=== PATIENT | female | born 1940 | race Caucasian/White ===

== ENCOUNTER → 2017-07-29 | Outpatient (CLI) | payer MEDICARE, SELFPAY | PROVIDERS: Visit Provider Family Medicine | DX: R05 Cough (principal); I50.22 Chronic systolic (congestive) heart failure; J44.9 Chronic obstructive pulmonary disease, unspecified | CPT/HCPCS: 36415; 71020; 80048; 80053; 83880; 85025 ==

== ENCOUNTER → 2017-08-01 | Outpatient (CLI) | payer MEDICARE, SELFPAY | PROVIDERS: Visit Provider Orthopaedic Surgery | DX: M54.6 Pain in thoracic spine (principal); Z13.820 Encounter for screening for osteoporosis; Z78.0 Asymptomatic menopausal state | CPT/HCPCS: 77080 ==

== ENCOUNTER → 2017-08-12 10:42 | Outpatient (CLI) | payer MEDICARE, SELFPAY ==
--- NOTE | 2017-08-12 | XR_ITS ---
XR ribs RT min 3V w CXR1V HISTORY: Midthoracic pain, abnormal bone scan ORDERING PHYSICIAN: Boo Pichardo PATIENT AGE: 77 years COMPARISON: 01/19/2016 FINDINGS: A frontal view of the chest shows prior median sternotomy with multiple kyphoplasty.. Multiple views of the right ribs were obtained. Minimally displaced fracture involves the posterior medial aspect of the right fourth and fifth ribs. These fractures appear more acute and were not present on previous exam. Old fracture of the right fifth rib laterally. There are old left-sided rib fractures as well. Bone scan did show increased activity involving the right 11th and 12th ribs as well as the night eighth and seventh ribs laterally. This may represent fractures which are below the limits of resolution on plain films. No bony destructive process evident. IMPRESSION: 1. Acute nondisplaced fractures of the right fourth and fifth ribs. 2. Multiple areas of rib activity noted on the bone scan likely related to nondisplaced rib fractures below limits of resolution on the plain film. No bony destructive process evident.
--- NOTE | 2017-08-12 | XR_ITS ---
EXAM: XR thoracic spine 2V HISTORY: Back pain, abnormal bone scan, midthoracic back pain COMPARISON: None FINDINGS: There is been prior kyphoplasty at L3, L1, T11, and T10. Wedge compression changes involve T5, T6, T7, and T8. These are not significant changed compared to lateral chest radiograph of 07/29/2017. Some of these areas do correspond to abnormal increased activity on the bone scan at T6 and T8. The T6 activity on the bone scan is more intense than on older bone scan. There has been increase wedge compression changes at T6 compared to an older lateral chest radiograph of 01/13/2016. There is generalized osteopenia IMPRESSION: Multiple wedge compression changes from T5 through T8 with prior kyphoplasty at T10, T11, L1, and L3. No bony destructive process evident
--- NOTE | 2017-08-12 10:52 | NM_ITS ---
NM bone scan limited area CLINICAL INDICATION: ITS.REASON: THOPRACIC SPINE PAIN ORDERING PHYSICIAN: Boo Pichardo PATIENT AGE: 77 years DOSE: 25.6 mCi technetium MDP IV COMPARISON: Radiographs of the thoracic spine and right ribs, prior bone scan of 01/19/2016 FINDINGS: Focal increased activity is present within the thoracic spine at T8 and T6. The T6 activity is more intense when compared to the previous bones can. The T8 activity is less intense when compared to the previous bone scan. Mild endplate activity is present in the lumbar spine. Focal increased activity is also present involving the right aspect of the ribs medially at the right fourth, fifth, sixth, seventh, and eighth ribs as well as posterior lateral aspect of the right seventh, eighth, and ninth ribs. These areas of activity are well to one another medially and posterior laterally and consistent with rib fractures. Multiple wedge compression changes are present on the thoracic spine film of T5-T8 IMPRESSION: Abnormal bone scan with increased activity in the thoracic spine and right ribs consistent with posttraumatic changes/compression fractures and nondisplaced rib fractures
--- NOTE | 2017-08-12 13:31 | HMH.ITSHM ---
ASPIRIN GLENDRANAZE VITAMIN D3 LISINOPRIL LEVOTHYROXINE SIMVASTATIN CARVEDILOL CLOPIDGREL RANITIDINE ENTRESTO
--- NOTE | 2017-08-12 14:26 | HMH.ITSHM ---
ASPIRIN, GLENDRANAZE, VIT D3, LISINOPRIL, LEVOTHYROXINE, SIMVASTATIN, CARVEDILOL, RANITIDINE
== END ==
PROVIDERS: PCP Family Medicine; Visit Provider Orthopaedic Surgery
DX: M54.6 Pain in thoracic spine (principal)
CPT/HCPCS: 71101; 72070; 78300; A9503

== ENCOUNTER 2017-12-31 13:35 | Outpatient (CLI) | payer MEDICARE, SELFPAY ==
[2017-12-31 14:00] VITALS: BP 129/80; PULSE 80; RESP 22; TEMP 36.3; O2SAT 97
== END 2017-12-31 14:20 | disposition home or self-care (01) ==
PROVIDERS: PCP Family Medicine; Visit Provider Family Medicine
DX: M85.89 Other specified disorders of bone density and structure, multiple sites
CPT/HCPCS: 96372; J0897

== ENCOUNTER 2018-01-04 08:24 | Observation (INO) ==
[2018-01-04 08:42] LABS: Basophils # 0.1 K/mm3 (0-0.2); Basophils % 1.3 % (0.1-2.0); Eosinophils # 0.1 K/mm3 (0.0-0.4); Eosinophils % 2.5 % (0.1-12.0); Hematocrit 41.5 % (37.0-47.0); Hemoglobin 12.3 g/dL (12.2-16.2); Lymphocytes # 1.8 K/mm3 (0.7-4.5); Mean Corpuscular HGB Conc 29.7 g/dL (31.8-35.4); Mean Corpuscular Volume 97.7 fl (81-99); Mean Platelet Volume 8.8 fl (7.4-10.4); Monocytes # 0.3 K/mm3 (0.1-1.0); Monocytes % 5.7 % (1.7-9.3); Neutrophils # 2.5 K/mm3 (1.8-7.8); Neutrophils % 52.4 % (37.0-80.0); Platelet Count 241 K/mm3 (142-424); Red Blood Count 4.25 M/mm3 (4.20-5.40); Red Cell Distribution Width 13.8 % (11.5-17.5); White Blood Count 4.8 K/mm3 (4.8-10.8)
[2018-01-04 08:48] LABS: Chloride 105 mmol/L (98-107); Sodium 146 mmol/L (136-145)
[2018-01-04 08:49] LABS: Anion Gap 9.8 mEq/L (5-15); Blood Urea Nitrogen 16 mg/dL (7-18); Carbon Dioxide 31 mmol/L (21.0-32.0); Glucose 113 mg/dL (74-106)
--- NOTE | 2018-01-04 08:51 | Emergency Department Note ---
ED Disposition Clinical Impression: Acute exacerbation of chronic obstructive airways disease Disposition: Admitted as Observation Condition on Discharge: Good - Critical Care Critical Care Time: No Attestation: On 01/04/18, the high probability of a clinically significant, sudden or life threatening deterioration of the following system(s) required my full and direct attention, intervention and personal management. The time I documented below is in addition to time spent performing reported procedures but includes the following listed in this critical care notation. Medical Decision Making - Medical Records Medical records reviewed: Yes: I reviewed the patient's medical records. MR Comment: abg 7.38 42.7 - Gabriel Inquiry Pt receiving controlled substance: No Vital Signs: 01/04/18 08:46 01/04/18 09:12 01/04/18 10:23 Temperature 97.8 F Temperature Source Temporal Artery Scan Pulse Rate 105 H 75 Pulse Rate [Right Brachial] 90 Respiratory Rate 16 Blood Pressure [Right Arm] 128/70 Blood Pressure Mean [Right Arm] 89 Blood Pressure Source [Right Arm] Automatic Cuff Blood Pressure Position [Right Arm] Sitting 02 Sat by Pulse Oximetry 93 L Oxygen Delivery Method Room Air 01/04/18 10:54 Temperature Temperature Source Pulse Rate Pulse Rate [Right Brachial] 89 Respiratory Rate 30 H Blood Pressure [Right Arm] 129/78 Blood Pressure Mean [Right Arm] 95 Blood Pressure Source [Right Arm] Automatic Cuff Blood Pressure Position [Right Arm] Sitting 02 Sat by Pulse Oximetry Oxygen Delivery Method - Lab Data Lab Results 01/04/18 08:32: WBC 4.8, RBC 4.25, Hgb 12.3, Hct 41.5, MCV 97.7, MCH 29.0, MCHC 29.7 L, RDW 13.8, Plt Count 241, MPV 8.8, Neut % (Auto) 52.4, Lymph % (Auto) 38.0, [place] % (Auto) 5.7, Eos % (Auto) 2.5, Baso % (Auto) 1.3, Neut # (Auto) 2.5 , Lymph # (Auto) 1.8, [place] # (Auto) 0.3, Eos # (Auto) 0.1, Baso # (Auto) 0.1 01/04/18 08:32: Sodium 146 H, Potassium 3.0 L, Chloride 105, Carbon Dioxide 31, Anion Gap 9.8, BUN 16, Creatinine 0.74, Estimated Creat Clear 36, Estimated GFR 76, Est GFR ( Amer) 92, Glucose 113 H, Troponin I < 0.02, TSH 0.79 01/04/18 08:32: Lactic Acid 1.5 01/04/18 08:32: B-Natriuretic Peptide 117 H Result diagrams: 01/04/18 08:32 01/04/18 08:32 Orders (Tests/Meds): ED MEDICATIONS Generic Name Dose Route Start Last Admin Trade Name Freq PRN Reason Stop Dose Admin Acetaminophen 650 mg 01/04/18 11:34 Acetaminophen 325mg Tab PO 02/03/18 11:33 Q4HP PRN As Needed for Fever or Pain Albuterol/Ipratropium 3 ml 01/04/18 11:34 Duoneb 3ml Neb IH 02/03/18 11:33 Q6HP PRN Shortness Of Breath Aspirin 81 mg 01/05/18 09:00 Aspirin 81mg Enteric Coated Tablet PO 02/04/18 08:59 DAILY [facility] Clopidogrel Bisulfate 75 mg 01/05/18 09:00 Plavix 75mg Tablet PO 02/04/18 08:59 DAILY [facility] Azithromycin 500 mg/ Sodium 250 mls @ 250 mls/hr 01/05/18 11:30 Chloride IV 01/18/18 11:29 Q24H [facility] Protocol Levothyroxine Sodium 75 mcg 01/05/18 09:00 Synthroid 75mcg (0.075mg) Tablet PO 02/04/18 08:59 DAILY [facility] Methylprednisolone Sodium Succinate 40 mg 01/04/18 11:34 Methylprednisolone Sod Succinate 40mg Vial IV 02/03/18 11:33 Q8H [facility] Non-Formulary Medication 2 puff 01/04/18 21:00 Budesonide/Formoterol Fumarate [Symbicort 160-4.5 Mcg Inhaler] INHALATION 20:59 BID [facility] Non-Formulary Medication 5,000 unit 01/05/18 09:00 Cholecalciferol (Vitamin D3) [Vitamin D3] PO 02/04/18 08:59 DAILY [facility] Non-Formulary Medication 20 mg 01/05/18 09:00 Escitalopram Oxalate [Escitalopram Oxalate] PO 02/04/18 08:59 DAILY [facility] Non-Formulary Medication 1 tab 01/04/18 21:00 Sacubitril/Valsartan [Entresto 49 Mg-51 Mg Tablet] PO 02/03/18 20:59 BID [facility] Non-Formulary Medication 40 mg 01/04/18 11:34 Simvastatin [Simvastatin] PO 02/03/18 11:33 QPM [facility] Non-Formulary Medication 70 mg 01/04/18 11:34 Alendronate Sodium [Fosamax] PO 02/03/18 11:33 QWEEK [facility] Non-Formulary Medication 150 mg 01/04/18 11:34 Ranitidine Hcl [Ranitidine Hcl] PO 02/03/18 11:33 QHS [facility] Discontinued Medications Generic Name Dose Route Start Last Admin Trade Name Freq PRN Reason Stop Dose Admin Albuterol Sulfate 5 mg 01/04/18 08:50 01/04/18 09:20 Albuterol 0.083% 2.5mg/3ml [facility] 01/04/18 08:51 5 mg ONCE ONE Administration Albuterol/Ipratropium 3 ml 01/04/18 08:49 01/04/18 09:09 Duoneb 3ml [facility] 01/04/18 08:50 3 ml ONCE ONE Administration Albuterol/Ipratropium 3 ml 01/04/18 10:09 01/04/18 10:23 Duoneb 3ml [facility] 01/04/18 10:10 3 ml ONCE ONE Administration Azithromycin 500 mg/ Sodium 250 mls @ 250 mls/hr 01/04/18 11:30 01/04/18 11: 31 Chloride IV 01/18/18 11:29 250 mls/hr Q24H [facility] Administration Protocol Methylprednisolone Sodium Succinate 125 mg 01/04/18 08:50 01/04/18 09:21 Solu-Medrol 125mg/2ml Vial IV 01/04/18 08:51 125 mg ONCE ONE Administration Ondansetron HCl 4 mg 01/04/18 10:37 01/04/18 11:08 Zofran 4mg/2ml Vial IV 01/04/18 10:38 4 mg ONCE ONE Administration Potassium Chloride 40 meq 01/04/18 09:37 01/04/18 09:51 Klor-Con 20meq Tablet PO 01/04/18 09:38 40 meq ONCE ONE Administration ORDERS Category Date Time Status Complete Blood Count Auto Diff AMLAB Lab 01/05/18 06:00 Ordered Comprehensive Metabolic Panel AMLAB Lab 01/05/18 06:00 Ordered Troponin I Q6H Lab 01/04/18 11:34 Ordered Troponin I Q6H Lab 01/04/18 17:34 Ordered Troponin I Q6H Lab 01/04/18 23:34 Ordered Blood Culture Stat Micro 01/04/18 08:32 Received - ECG Data Tracing #1 I reviewed this ECG and interpreted as documented below: (ER EKG read by myself shows normal sinus rhythm rate of 94, lbbb, l axis, no QT prolongation, nonspecific EKG, no change from 11/04/16 ekg) General Adult HPI - General Chief complaint: Shortness of Breath/Dyspnea Stated complaint: soa Time Seen by Provider: 01/04/18 08:46 - History of Present Illness HPI narrative: Patient complains of chest tightness and shortness of breath and cough productive of yellow phlegm over the past couple days and dyspnea on exertion she states her chest tightness is moderate in severity she denies any fevers or chills she states he does feel cold at times. Denies any pain she states she has a history of COPD. Denies any leg pain leg swelling. - Related Data Home Medications Medication Instructions Recorded Confirmed alendronate 70 mg tablet 70 mg PO QWEEK 12/24/17 01/04/18 aspirin 81 mg tablet,delayed 81 mg PO DAILY tab 12/24/17 01/04/18 release budesonide-formoterol HFA 160 2 puff INHALATION BID 12/24/17 01/04/18 mcg-4.5 mcg/actuation aerosol inhaler cholecalciferol (vitamin D3) 5,000 5,000 unit PO DAILY cap 12/24/17 01/04/18 unit capsule clopidogrel 75 mg tablet 75 mg PO DAILY tab 12/24/17 01/04/18 escitalopram 20 mg tablet 20 mg PO DAILY tab 12/24/17 01/04/18 levothyroxine 75 mcg tablet 75 mcg PO DAILY tab 12/24/17 01/04/18 omeprazole 40 mg capsule,delayed 40 mg PO DAILY cap 12/24/17 01/04/18 release ranitidine 150 mg tablet 150 mg PO QHS 12/24/17 01/04/18 sacubitril 49 mg-valsartan 51 mg 1 tab PO BID 12/24/17 01/04/18 tablet simvastatin 40 mg tablet 40 mg PO QPM 12/24/17 01/04/18 Allergies Allergy/AdvReac Type Severity Reaction Status Date / Time hydrocodone [HYDROCODONE] Allergy Unknown Verified 01/04/18 08:27 morphine [MORPHINE] Allergy Unknown Verified 01/04/18 08:27 [facility] History I have reviewed the patient's past medical history: Yes Medical History: Reports:: Asthma, Cardiomyopathy, Chronic Obstructive Pulmonary Disease (COPD), Coronary Artery Disease, Gastroesophageal Reflux Disease(GERD), Hyperlipidemia, Hypertension, Kidney Stones Other Medical History: Reports: Arthritis Other Surgeries: Yes: No Previous Surgery - Social History Smoking Status: Former smoker Alcohol Intake: never Substance Use Type: denies use Family Hx:: No significant family history ROS Obtained: Yes All systems reviewed & no additional complaints Physical Exam - General General appearance: alert - Head Head exam: atraumatic - Eye Eye exam: Present: normal appearance - ENT ENT exam: Present: mucous membranes moist - Neck Neck exam: Present: normal inspection - Chest Chest inspection: Present: normal inspection - Respiratory Respiratory exam: Present: wheezes - Cardiovascular Cardiovascular exam: Present: regular rate, normal rhythm - Abdominal Exam Abdominal exam: Present: soft, normal bowel sounds. Absent: tenderness - Extremities Exam Extremities exam: Absent: pedal edema - Back Exam Back exam: Absent: tenderness - Neurological Exam Neurological exam: Present: alert - Psychiatric Psychiatric exam: Present: normal affect - Skin Skin exam: Present: warm
[2018-01-04 09:01] LABS: Thyroid Stimulating Hormone 0.79 uIU/ml (0.358-3.740)
--- NOTE | 2018-01-04 15:07 | Pharmacy Consult Notes ---
[facility] Pharmacy VTE Monitoring - Patient Demographics Admission date: 01/04/18 Report Date: 01/04/18 Time: 15:06 Allergies/Adverse Reactions: Patient Allergies hydrocodone [HYDROCODONE] Allergy (Unknown, Verified 01/04/18 08:27) morphine [MORPHINE] Allergy (Unknown, Verified 01/04/18 08:27) Height: 1.55 m Weight: 44.027 kg Patient Problems: Current Active Problems Acute exacerbation of chronic obstructive airways disease (Acute) - VTE Risk Labs: VTE Related Lab Results Hgb 12.3 g/dL (12.2-16.2) 01/04/18 08:32 Hct 41.5 % (37.0-47.0) 01/04/18 08:32 Plt Count 241 K/mm3 (142-424) 01/04/18 08:32 BUN 16 mg/dL (7-18) 01/04/18 08:32 Creatinine 0.74 mg/dL (0.55-1.02) 01/04/18 08:32 Estimated Creat Clear 36 mL/min (0-300) 01/04/18 08:32 Was VTE Risk Assessment Performed: Yes VTE Score: 3 VTE Risk Level: Low Risk - Prophylaxis Types of VTE Prophylaxis: TEDS Knee High ([facility] ORDRED) Location of Applied Device: Bilateral Lower Extremeties
[2018-01-05 05:08] VITALS: BP 95/42
[2018-01-05 06:05] LABS: Basophils % 0.1 % (0.1-2.0); Eosinophils % 0.1 % (0.1-12.0); Lymphocytes # 0.5 K/mm3 (0.7-4.5); Mean Platelet Volume 7.8 fl (7.4-10.4); Monocytes # 0.2 K/mm3 (0.1-1.0); White Blood Count 6.2 K/mm3 (4.8-10.8)
[2018-01-05 06:16] LABS: Hematocrit 34.1 % (37.0-47.0); Lymphocytes % 7.5 K/mm3 (10-50); Mean Corpuscular HGB Conc 29.8 g/dL (31.8-35.4); Mean Corpuscular Hemoglobin 29.4 pg (27.0-31.2); Mean Corpuscular Volume 98.7 fl (81-99); Monocytes % 3.4 % (1.7-9.3); Neutrophils # 5.6 K/mm3 (1.8-7.8); Platelet Count 260 K/mm3 (142-424); Red Blood Count 3.45 M/mm3 (4.20-5.40); Red Cell Distribution Width 13.9 % (11.5-17.5)
[2018-01-05 06:18] LABS: Albumin Level 3.3 gm/dL (3.4-5.0); Albumin/Globulin Ratio 1.1 (1.1-1.8); Anion Gap 11.2 mEq/L (5-15); Bilirubin,Total 0.2 mg/dL (0.2-1.0); Calcium 8.5 mg/dL (8.5-10.1); Globulin 3.1 gm/dl (1.3-3.2); Potassium 3.2 mmoL/L (3.5-5.1); Total Protein,Serum 6.4 gm/dL (6.4-8.2)
[2018-01-05 06:30] LABS: Hemoglobin 10.2 g/dL (12.2-16.2)
--- NOTE | 2018-01-05 06:56 | H&P/Discharge Summary ---
General - General Admission date:: 01/04/18 Discharge date: 01/05/18 *Admission Date: 01/04/18 *Chief complaint: Shortness of breath *History of present illness: 77-year-old female with history of COPD as well as CHF presented to the emergency department early yesterday morning with complaint of shortness of breath. History is taken from the patient and her granddaughter. Patient reports over the last month she has had more frequent episodes of acute onset of shortness of breath, usually in the evenings. The patient actually refers to her episodes as panic attacks and believes they are related to being alone in the evening and thinking about her . Apparently another family member was living with her up until a month ago and since that time she is having more frequent episodes of panic. Yesterday morning however she contacted her granddaughter because of increased shortness of breath. Granddaughter states she had difficulty talking on the phone. By the time granddaughter arrived at her house the patient could not walk due to her shortness of breath. She was brought to the emergency department. Patient noted significant improvement with a breathing treatment. She was tachypneic on presentation to the ER. Labs revealed hypokalemia and patient's evaluation was consistent with a COPD exacerbation. Patient was admitted for treatment with IV fluids, steroids, antibiotics. This morning she denies shortness of breath and is feeling better. She did not have any "panic attacks" yesterday evening while hospitalized. The patient and her family also agrees some of this seems to be triggered by her recent visit from a nurse associated with the patient's insurance company. Apparently something the nurse said led the patient to believe that she was developing acute congestive heart failure which left the patient uneasy and anxious. [facility] History I have reviewed the patient's past medical history: Yes Medical History: Reports:: Asthma, Cardiomyopathy, Chronic Obstructive Pulmonary Disease (COPD), Coronary Artery Disease, Gastroesophageal Reflux Disease(GERD), Hyperlipidemia, Hypertension, Kidney Stones Denies:: Cancer, Diabetes Mellitus Type 1, Diabetes Mellitus Type 2, MRSA Other Medical History: Reports: Arthritis Other Surgeries: Yes: No Previous Surgery, Skin Cancer Excision Amputation: No Fractures: No - *Social History Educational Level: Attended Grade School Smoking Status: Former smoker Tobacco Type: cigarettes # Packs/Day (cigarettes): 1 Alcohol Intake: never Substance Use Type: denies use Occupational Status: retired Housing: house - Psychiatric History Expresses thoughts of harming self/others: None Suicide Plan Description: No Plan *Family Hx:: No significant family history Review of Systems - Review of Systems Review of systems:: unable to obtain - Constitutional Denies anorexia, Denies body ache(s), Denies chills - *Cardiovascular Denies chest pain, Denies chest pain at rest - *Respiratory Reports shortness of breath, Reports shortness of breath with activity, Denies change in phlegm color, Denies chest congestion, Denies cough, Denies coughing up blood - *Gastrointestinal Reports belching Exam Vital signs and Labs for Last 24 Hours: Temp Pulse Resp BP Pulse Ox 98.1 F 81 20 95/42 93 L 01/05/18 04:00 01/05/18 04:00 01/05/18 04:00 01/05/18 04:00 01/05/18 06:11 Laboratory Results - last 24 hr 01/04/18 08:32: WBC 4.8, RBC 4.25, Hgb 12.3, Hct 41.5, MCV 97.7, MCH 29.0, MCHC 29.7 L, RDW 13.8, Plt Count 241, MPV 8.8, Neut % (Auto) 52.4, Lymph % (Auto) 38.0, [place] % (Auto) 5.7, Eos % (Auto) 2.5, Baso % (Auto) 1.3, Neut # (Auto) 2.5 , Lymph # (Auto) 1.8, [place] # (Auto) 0.3, Eos # (Auto) 0.1, Baso # (Auto) 0.1 01/04/18 08:32: Sodium 146 H, Potassium 3.0 L, Chloride 105, Carbon Dioxide 31, Anion Gap 9.8, BUN 16, Creatinine 0.74, Estimated Creat Clear 36, Estimated GFR 76, Est GFR ( Amer) 92, Glucose 113 H, Troponin I < 0.02, TSH 0.79 01/04/18 08:32: Lactic Acid 1.5 01/04/18 08:32: B-Natriuretic Peptide 117 H 01/04/18 12:27: Troponin I < 0.02 01/04/18 17:20: Troponin I < 0.02 01/04/18 23:45: Troponin I < 0.02 01/05/18 05:10: WBC 6.2 D, RBC 3.45 L, Hgb 10.2 L D, Hct 34.1 L, MCV 98.7, MCH 29.4, MCHC 29.8 L, RDW 13.9, Plt Count 260, MPV 7.8, Neut % (Auto) 89.0 H, Lymph % (Auto) 7.5 L, [place] % (Auto) 3.4, Eos % (Auto) 0.1, Baso % (Auto) 0.1, Neut # (Auto) 5.6, Lymph # (Auto) 0.5 L, [place] # (Auto) 0.2, Eos # (Auto) 0.0, Baso # (Auto) 0.0 01/05/18 05:10: Sodium 144, Potassium 3.2 L, Chloride 107, Carbon Dioxide 29, Anion Gap 11.2, BUN 18, Creatinine 0.80, Estimated Creat Clear 33, Estimated GFR 70, Est GFR ( Amer) 84, Glucose 137 H D, Calcium 8.5, Total Bilirubin 0.2, AST 16, ALT 13, Alkaline Phosphatase 65, Total Protein 6.4, Albumin 3.3 L, Globulin 3.1, Albumin/Globulin Ratio 1.1 I & O for Last 24 hours: Intake & Output 01/02/18 01/03/18 01/04/18 01/05/18 11:59 11:59 11:59 11:59 Intake Total 1050 / 1050 Balance 1050 / 1050 Weight 97 lb 1 oz 97 lb 1 oz Microbiology Reports for the Last 24 Hours: Microbiology 01/04/18 20:45 Sputum - Expectorated Sputum Gram Stain - Final Narrative: Patient is awake and alert resting comfortably in bed this morning without the use of supplemental oxygen. She does not appear in any respiratory distress. Speech is fluent and clear. HEENT exam is significant for a moist oropharynx, pupils are reactive to light, normal external ears. Neck is without jugular venous distention. Lungs are clear to auscultation except for some faint right- sided basilar rales. Heart has a regular rate and rhythm. Abdomen is soft, nontender, nondistended. Patient has active range of motion in all extremities. Neurologic exam does not reveal any deficits. Hospital Course Hospital Course: Patient was admitted and treated for a COPD exacerbation with breathing treatments, IV steroids and IV antibiotics. Overnight the patient improved significantly and was requiring any supplemental oxygen. Patient felt like she had returned to baseline. She will be discharged home and will follow-up in my office later in this week as an outpatient. Home nebulizer will be arranged the patient feels like she benefited significantly from that when she was feeling short of breath. Also discussed with the patient more frequent outpatient visits as a way to potentially ease her mind about her health and she will consider this. Results Labs on day of discharge: Labs from last 24 hours 01/05/18 01/05/18 01/04/18 05:10 05:10 23:45 WBC 6.2 D RBC 3.45 L Hgb 10.2 L D Hct 34.1 L MCV 98.7 MCH 29.4 MCHC 29.8 L RDW 13.9 Plt Count 260 MPV 7.8 Neut % (Auto) 89.0 H Lymph % (Auto) 7.5 L [place] % (Auto) 3.4 Eos % (Auto) 0.1 Baso % (Auto) 0.1 Neut # (Auto) 5.6 Lymph # (Auto) 0.5 L [place] # (Auto) 0.2 Eos # (Auto) 0.0 Baso # (Auto) 0.0 Sodium 144 Potassium 3.2 L Chloride 107 Carbon Dioxide 29 Anion Gap 11.2 BUN 18 Creatinine 0.80 Estimated Creat Clear 33 Estimated GFR 70 Est GFR ( Amer) 84 Glucose 137 H D Lactic Acid Calcium 8.5 Total Bilirubin 0.2 AST 16 ALT 13 Alkaline Phosphatase 65 Troponin I < 0.02 B-Natriuretic Peptide Total Protein 6.4 Albumin 3.3 L Globulin 3.1 Albumin/Globulin Ratio 1.1 TSH 01/04/18 01/04/18 01/04/18 17:20 12:27 08:32 WBC RBC Hgb Hct MCV MCH MCHC RDW Plt Count MPV Neut % (Auto) Lymph % (Auto) [place] % (Auto) Eos % (Auto) Baso % (Auto) Neut # (Auto) Lymph # (Auto) [place] # (Auto) Eos # (Auto) Baso # (Auto) Sodium Potassium Chloride Carbon Dioxide Anion Gap BUN Creatinine Estimated Creat Clear Estimated GFR Est GFR ( Amer) Glucose Lactic Acid Calcium Total Bilirubin AST ALT Alkaline Phosphatase Troponin I < 0.02 < 0.02 B-Natriuretic Peptide 117 H Total Protein Albumin Globulin Albumin/Globulin Ratio TSH 01/04/18 01/04/18 01/04/18 08:32 08:32 08:32 WBC 4.8 RBC 4.25 Hgb 12.3 Hct 41.5 MCV 97.7 MCH 29.0 MCHC 29.7 L RDW 13.8 Plt Count 241 MPV 8.8 Neut % (Auto) 52.4 Lymph % (Auto) 38.0 [place] % (Auto) 5.7 Eos % (Auto) 2.5 Baso % (Auto) 1.3 Neut # (Auto) 2.5 Lymph # (Auto) 1.8 [place] # (Auto) 0.3 Eos # (Auto) 0.1 Baso # (Auto) 0.1 Sodium 146 H Potassium 3.0 L Chloride 105 Carbon Dioxide 31 Anion Gap 9.8 BUN 16 Creatinine 0.74 Estimated Creat Clear 36 Estimated GFR 76 Est GFR ( Amer) 92 Glucose 113 H Lactic Acid 1.5 Calcium Total Bilirubin AST ALT Alkaline Phosphatase Troponin I < 0.02 B-Natriuretic Peptide Total Protein Albumin Globulin Albumin/Globulin Ratio TSH 0.79 DS: Diagnosis - Discharge Diagnosis (1) Acute exacerbation of chronic obstructive airways disease Status: Acute (2) Anxiety about health Status: Acute (3) Gastroesophageal reflux disease Status: Acute Discharge Medications Discharge Medications: Home Medications Medication Instructions Recorded Confirmed Type alendronate 70 mg tablet 70 mg PO QWEEK 12/24/17 01/04/18 History aspirin 81 mg tablet,delayed 81 mg PO DAILY tab 12/24/17 01/04/18 History release budesonide-formoterol HFA 160 2 puff INHALATION BID 12/24/17 01/04/18 History mcg-4.5 mcg/actuation aerosol inhaler cholecalciferol (vitamin D3) 5,000 5,000 unit PO DAILY cap 12/24/17 01/04/18 History unit capsule clopidogrel 75 mg tablet 75 mg PO DAILY tab 12/24/17 01/04/18 History levothyroxine 75 mcg tablet 75 mcg PO DAILY tab 12/24/17 01/04/18 History ranitidine 150 mg tablet 150 mg PO QHS 12/24/17 01/04/18 History simvastatin 40 mg tablet 40 mg PO QPM 12/24/17 01/04/18 History Benzonatate [Benzonatate 100mg 100 mg PO TIDP PRN 01/04/18 01/04/18 History cap] Escitalopram Oxalate [Lexapro] 10 mg PO DAILY 01/04/18 01/04/18 History Sacubitril/Valsartan [Entresto 49 1 each PO DAILY 01/04/18 01/04/18 History mg-51 mg Tablet] buPROPion HCl [Bupropion HCl Sr] 150 mg PO BID 01/04/18 01/04/18 History Disposition Disposition: Home, Self-Care
[2018-01-05 07:22] LABS: ABG Base Excess 0.2 mmol/L (-2.4-2.3); ABG HCO3 25.2 mmhg (22.0-26.0); ABG Oxygen Saturation 93 % (90-100); ABG PCO2 42.7 mmhg (35.0-45.0); ABG PH 7.39 mmol/L (7.35-7.45); ABG PO2 70.4 mmhg (80-100); ABG TCO2 26.5 mmhg (23-27)
[2018-01-05 08:21] LABS: Lymphocytes % 8 % (10-50); Neutrophils % 92 % (42-76); RBC Morphology Normal; Total Cells Counted 100
== END 2018-01-05 07:55 | disposition home or self-care (01) ==
LOC: EDBD → ER 08:24 → 2ND 08:24
PROVIDERS: ADMIT Emergency Medicine; ATTEND Family Medicine

== ENCOUNTER → 2018-01-15 12:07 | Outpatient (CLI) | payer MEDICARE, SELFPAY ==
[2018-01-15 12:34] LABS: Basophils % 0.8 % (0.1-2.0); Eosinophils # 0.1 K/mm3 (0.0-0.4); Eosinophils % 1.6 % (0.1-12.0); Hematocrit 38.2 % (37.0-47.0); Hemoglobin 11.5 g/dL (12.2-16.2); Lymphocytes # 1.5 K/mm3 (0.7-4.5); Lymphocytes % 33.3 K/mm3 (10-50); Mean Corpuscular HGB Conc 30.2 g/dL (31.8-35.4); Mean Corpuscular Hemoglobin 29.3 pg (27.0-31.2); Mean Corpuscular Volume 97.2 fl (81-99); Monocytes # 0.2 K/mm3 (0.1-1.0); Monocytes % 5.2 % (1.7-9.3); Neutrophils # 2.7 K/mm3 (1.8-7.8); Neutrophils % 59.1 % (37.0-80.0); Platelet Count 290 K/mm3 (142-424); Red Blood Count 3.93 M/mm3 (4.20-5.40); Red Cell Distribution Width 13.7 % (11.5-17.5); White Blood Count 4.6 K/mm3 (4.8-10.8)
[2018-01-15 13:46] LABS: Anion Gap 11.3 mEq/L (5-15); Blood Urea Nitrogen 14 mg/dL (7-18); Calcium 8.7 mg/dL (8.5-10.1); Carbon Dioxide 32 mmol/L (21.0-32.0); Chloride 107 mmol/L (98-107); Creatinine,Serum 0.66 mg/dL (0.55-1.02); Estimated Glomerular Filt Rate 87 ml/min (>60); GFR (African American) 105 ML/MIN (>60); Glucose 83 mg/dL (74-106); Potassium 3.3 mmoL/L (3.5-5.1); Sodium 147 mmol/L (136-145)
== END ==
PROVIDERS: Visit Provider Internal Medicine Cardiovascular Disease
DX: R06.02 Shortness of breath (principal); I42.0 Dilated cardiomyopathy; D64.9 Anemia, unspecified; R94.31 Abnormal electrocardiogram [ECG] [EKG]
CPT/HCPCS: 36415; 80048; 83880; 85025

== ENCOUNTER → 2018-01-20 14:13 | Outpatient (CLI) | payer MEDICARE, SELFPAY ==
--- NOTE | 2018-01-20 14:15 | CA_ITS ---
PROCEDURE: 2-D M-mode and color Doppler study INDICATIONS FOR THE TEST: Chest pain COPD+ Heart Murmur Tobacco Smokingex Palpitations Fatigue Syncope Edema Hypertension+Diabetes Mellitus Rheumatic Fever SOB+MAR Obesity Hyperlipidemia+ Family History HD Additional History Pulmonary emphysema, CAD, CM, CABG, GERD, Asthma PATIENT INFORMATION HEIGHT: 60 WEIGHT: 97 GENDER: Female B/P:130/70 2-D/M-MODE INTERPRETATION: 2-D MEASUREMENTS OBSERVED VALUES IN CMS Right Ventricular Dimension (RVDd) 2.7 Interventricular Septum (Thickness)(IVsd) 1.1 Left Ventricular Internal Dimensions(LVIDd) 3.8 Left Ventricular Posterior Wall (Thickness)(LVPWd) 1.2 Aortic Root 2.8 Aortic Cusp Separation 2.0 Left Atrial Dimensions (LAD) 3.8 2D 1. Left atrium is mildly enlarged, left ventricle is normal size, mild concentric left ventricular hypertrophy, visually estimated ejection fraction approximately 35%, there is marked hypokinesis involving the mid to distal septum, anterior and anteroapical wall. 2. The right atrium and right ventricle are mildly enlarged with normal contractility. 3. The aortic valve is thickened and calcified, leaflet continue to display good mobility. 4. The mitral and tricuspid valve leaflets are minimally thickened 5. The pulmonic valve is poorly visualized. 6. No significant pericardial effusion noted. DOPPLER INTERROGATION: Doppler interrogation of the aortic, mitral and tricuspid valvular presence of mild mitral and tricuspid regurgitation, tricuspid regurgitant jet velocity is insufficient for calculation of the right ventricular systolic pressure, grade 1 diastolic dysfunction seen with tissue Doppler evidence of raised left atrial pressure. CONCLUSION: 1. Mildly enlarged left atrium, normal left ventricular size, mild concentric left ventricular hypertrophy, visually estimated ejection fraction of 35% with multiple segmental wall motion abnormality described above, grade 1 diastolic dysfunction seen with tissue Doppler evidence of raised left atrial pressure. 2. Mild mitral and tricuspid regurgitation 3. No significant pericardial effusion noted.
== END ==
PROVIDERS: PCP Family Medicine; Visit Provider Internal Medicine Cardiovascular Disease
DX: I42.0 Dilated cardiomyopathy (principal)
CPT/HCPCS: 93306

== ENCOUNTER → 2018-01-27 14:49 | Outpatient (CLI) | payer MEDICARE, SELFPAY | PROVIDERS: PCP Family Medicine; Visit Provider Internal Medicine Cardiovascular Disease | DX: J44.9 Chronic obstructive pulmonary disease, unspecified (principal) ==

== ENCOUNTER 2018-04-03 18:20 | Observation (INO) ==
[2018-04-03 19:18] LABS: Basophils % 0.8 % (0.1-2.0); Eosinophils # 0.1 K/mm3 (0.0-0.4); Eosinophils % 0.8 % (0.1-12.0); Hemoglobin 11.5 g/dL (12.2-16.2); Lymphocytes # 1.6 K/mm3 (0.7-4.5); Lymphocytes % 28.5 K/mm3 (10-50); Mean Corpuscular HGB Conc 34.7 g/dL (31.8-35.4); Mean Corpuscular Hemoglobin 32.4 pg (27.0-31.2); Mean Corpuscular Volume 93.4 fl (81-99); Mean Platelet Volume 7.6 fl (7.4-10.4); Monocytes # 0.3 K/mm3 (0.1-1.0); Monocytes % 5.9 % (1.7-9.3); Neutrophils # 3.5 K/mm3 (1.8-7.8); Neutrophils % 63.9 % (37.0-80.0); Platelet Count 319 K/mm3 (142-424); Red Blood Count 3.54 M/mm3 (4.20-5.40); White Blood Count 5.4 K/mm3 (4.8-10.8)
--- NOTE | 2018-04-03 19:26 | Emergency Department Note ---
ED Disposition Clinical Impression: Acute anxiety, COPD exacerbation, UTI (urinary tract infection), Bronchitis Disposition: Still a Patient Condition on Discharge: Good Referrals: Manuel Abdul MD [Primary Care Provider] - - Critical Care Critical Care Time: No Attestation: On 04/03/18, the high probability of a clinically significant, sudden or life threatening deterioration of the following system(s) required my full and direct attention, intervention and personal management. The time I documented below is in addition to time spent performing reported procedures but includes the following listed in this critical care notation. Medical Decision Making - Gabriel Inquiry Pt receiving controlled substance: No Vital Signs: 04/03/18 18:21 04/03/18 18:30 04/03/18 19:23 Temperature 98.0 F Temperature Source Oral Pulse Rate 84 Pulse Rate [Right Brachial] 79 Respiratory Rate 20 Blood Pressure [Right Arm] 133/93 Blood Pressure Mean [Right Arm] 106 Blood Pressure Source [Right Arm] Automatic Cuff Blood Pressure Position [Right Arm] Sitting 02 Sat by Pulse Oximetry 98 98 98 Oxygen Delivery Method Room Air Room Air Nasal Cannula Oxygen Flow Rate (LPM) 2 04/03/18 19:44 Temperature 97.8 F Temperature Source Oral Pulse Rate Pulse Rate [Right Brachial] 92 H Respiratory Rate 24 Blood Pressure [Right Arm] 109/64 Blood Pressure Mean [Right Arm] 79 Blood Pressure Source [Right Arm] Automatic Cuff Blood Pressure Position [Right Arm] Sitting 02 Sat by Pulse Oximetry 96 Oxygen Delivery Method Room Air Oxygen Flow Rate (LPM) 2 - Lab Data Lab Results 04/03/18 19:00: WBC 5.4, RBC 3.54 L, Hgb 11.5 L, Hct 33.0 L, MCV 93.4, MCH 32.4 H, MCHC 34.7, RDW 14.0, Plt Count 319, MPV 7.6, Neut % (Auto) 63.9, Lymph % (Auto) 28.5, [place] % (Auto) 5.9, Eos % (Auto) 0.8, Baso % (Auto) 0.8, Neut # (Auto) 3.5, Lymph # (Auto) 1.6, [place] # (Auto) 0.3, Eos # (Auto) 0.1, Baso # (Auto) 0.0 04/03/18 19:00: PT 9.9, INR 0.96, APTT 30.3 04/03/18 19:00: Sodium 141, Potassium 3.8, Chloride 106, Carbon Dioxide 28, Anion Gap 10.8, BUN 15, Creatinine 0.74, Estimated Creat Clear 33, Estimated GFR 76, Est GFR ( Amer) 92, Glucose 98, Calcium 8.8, Total Bilirubin 0.3, AST 17, ALT 13, Alkaline Phosphatase 78, Lactate Dehydrogenase 143, Troponin I < 0. 02, Total Protein 7.1, Albumin 3.7, Globulin 3.4 H, Albumin/Globulin Ratio 1.1 04/03/18 19:00: Lactate 0.8 04/03/18 19:29: Urine Color Yellow, Urine Appearance Cloudy, Urine pH 7.5, Ur Specific [place] 1.015, Urine Protein 1+, Urine Glucose (UA) Negative, Urine Ketones Negative, Urine Blood 2+, Urine Nitrate Negative, Urine Bilirubin Negative, Urine Urobilinogen 1.0, Ur Leukocyte Esterase 3+ A, Urine RBC 3-5, Urine WBC 5-10, Ur Squamous Epith Cells 3-5, Amorphous Sediment 1+, Urine Bacteria 3+ Result diagrams: 04/03/18 19:00 04/03/18 19:00 Orders (Tests/Meds): ED MEDICATIONS Discontinued Medications Generic Name Dose Route Start Last Admin Trade Name Freq PRN Reason Stop Dose Admin Albuterol/Ipratropium 6 ml 04/03/18 18:38 04/03/18 19:07 Duoneb 3ml Neb IH 04/03/18 18:39 6 ml ONCE ONE Administration Methylprednisolone Sodium Succinate 125 mg 04/03/18 18:37 04/03/18 19:07 Solu-Medrol 125mg/2ml Vial IV 04/03/18 18:38 125 mg ONCE ONE Administration ORDERS Category Date Time Status CXR --portable [XR chest portable] Stat Exams 04/03/18 18:36 Taken B-Type Natriuretic Peptide Stat Lab 04/03/18 19:00 Received Urinalysis and Microscopic Stat Lab 04/03/18 19:29 Ordered Blood Culture Stat Micro 04/03/18 19:02 Ordered Urine Culture Stat Micro 04/03/18 19:29 Received EKG Request [ECG Request by /Irma] Stat Y 04/03/18 19:28 Ordered - Radiology Data #1 Image(s): Chest Image Reviewed: Yes I reviewed the patient's radiology image Preliminary Findings: Normal/NAD, No Infiltrates Seen - ECG Data Tracing #1 ER EKG read by myself shows normal sinus rhythm rate of 92, l axis, lbbb, no QT prolongation, nonspecific EKG General Adult HPI - General Chief complaint: Anxiety Stated complaint: nausea, headache, anxious Time Seen by Provider: 04/03/18 18:35 Mode of Arrival: Ambulatory Limitations: No Limitations Description of Symptoms (Recalled from ER Triage Doc. by RN): Pt c/o nausea and headache. Pt reports she was nauseated lastnight but felt normal when she woke up this morning. Pt reports she began feeling bad after taking her Lexapro this morning. Pt granddaughter states pt is anxious and concerned the lexapro is making her sick - History of Present Illness HPI narrative: Patient complains of shortness of breath and anxiety she states she has a cough she states she brings up some yellow phlegm she states she was here either Friday or Friday with some chest pain but has not had any chest pain since then she states she has a mild headache today denies any leg pain or swelling she states she has COPD and is on oxygen at home she denies any history of CHF - Related Data Home Medications Medication Instructions Recorded Confirmed alendronate 70 mg tablet 70 mg PO QWEEK 12/24/17 03/30/18 aspirin 81 mg tablet,delayed 81 mg PO DAILY tab 12/24/17 03/30/18 release budesonide-formoterol HFA 160 2 puff INHALATION BID 12/24/17 01/22/18 mcg-4.5 mcg/actuation aerosol inhaler cholecalciferol (vitamin D3) 5,000 5,000 unit PO DAILY cap 12/24/17 03/30/18 unit capsule clopidogrel 75 mg tablet 75 mg PO DAILY tab 12/24/17 03/30/18 levothyroxine 75 mcg tablet 75 mcg PO DAILY tab 12/24/17 03/30/18 ranitidine 150 mg tablet 150 mg PO QHS 12/24/17 03/30/18 simvastatin 40 mg tablet 40 mg PO QPM 12/24/17 03/30/18 Benzonatate [Benzonatate 100mg 100 mg PO TIDP PRN 01/04/18 01/22/18 cap] Escitalopram Oxalate [Lexapro] 10 mg PO DAILY 01/04/18 01/22/18 buPROPion HCl [Bupropion HCl Sr] 150 mg PO BID 01/04/18 01/22/18 Potassium Chloride [K-Tab ER 10 10 meq PO BID 01/22/18 01/22/18 mEq] Sacubitril/Valsartan [Entresto 49 49 mg PO BID 03/30/18 03/30/18 mg-51 mg Tablet] Previous Rx's Medication Instructions Recorded Albuterol Sulfate [Albuterol 2.5 mg IH Q4HP PRN #60 neb 01/05/18 Sulfate 2.5mg/0.5ml Neb] methylPREDNISolone [Medrol] 4 mg PO DAILY #1 tab.ds.pk 01/22/18 sacubitril 49 mg-valsartan 51 mg 1 tab PO BID #180 tab 02/02/18 tablet Allergies Allergy/AdvReac Type Severity Reaction Status Date / Time hydrocodone [HYDROCODONE] Allergy Unknown Verified 01/29/18 11:51 morphine [MORPHINE] Allergy Unknown Verified 01/29/18 11:51 [facility] History I have reviewed the patient's past medical history: Yes Medical History: Reports:: Asthma, Cardiomyopathy, Chronic Obstructive Pulmonary Disease (COPD), Coronary Artery Disease, Gastroesophageal Reflux Disease(GERD), Hyperlipidemia, Hypertension, Kidney Stones Denies:: Cancer, Diabetes Mellitus Type 1, Diabetes Mellitus Type 2, MRSA Other Medical History: Reports: Arthritis Other Surgeries: Yes: No Previous Surgery, Skin Cancer Excision Amputation: No Fractures: No - Social History Smoking Status: Current every day smoker Tobacco Type: cigarettes # Packs/Day (cigarettes): 1 Alcohol Intake: never Substance Use Type: denies use Occupational Status: retired Housing: house - Psychiatric History Expresses thoughts of harming self/others: None Suicide Plan Description: No Plan Family Hx:: No significant family history ROS Obtained: Yes All systems reviewed & no additional complaints Physical Exam General Appearance: Nontoxic anxious Head: Normocephalic, without obvious abnormality, atraumatic. Eyes: conjunctiva/corneas clear ENT: Mucous membranes moist. Neck: No jugular venous distention. Cardiac: regular rate and rhythm Lungs: Wheezes rhonchi to auscultation bilaterally Abdomen: Nontender, Nondistended, positive bowel sounds, no rebound : No CVA tenderness Extremities: no edema Musculoskeletal: No chest wall tenderness No Homans sign No calf tenderness No swelling in legs Skin: No rashes or lesions to exposed skin. Neurologic: Alert. No gross focal deficits Psychiatric: Normal affect - General General appearance: alert, anxious - Respiratory Respiratory exam: Present: wheezes - Cardiovascular Cardiovascular exam: Present: regular rate, normal rhythm - Neurological Exam Neurological exam: Present: alert
[2018-04-03 19:27] LABS: Activated Partial Thrombo Time 30.3 seconds (23.6-34.0); INR 0.96 (0.9-1.1); Prothrombin Time 9.9 seconds (9.4-11.8)
[2018-04-03 19:32] LABS: Microscopic, Urine URINE MICROSCOPIC (MICROSCOPIC)
[2018-04-03 19:34] LABS: Appearance,Urine CLOUDY (Clear); Bilirubin,Urine Negative (Negative); Blood, Urine 2+ (Negative); Color,Urine YELLOW (Yellow); Glucose,Urine (UA) Negative (Negative); Ketones,Urine Negative (Negative); Leukocyte Esterase,Urine 3+ (Negative); PH,Urine 7.5 (5.0-8.5); Protein,Urine 1+ (Negative); Specific Gravity, Urine 1.015 (1.005-1.030)
[2018-04-03 19:35] LABS: Alanine Aminotransferase 13 U/L (12-78); Albumin Level 3.7 gm/dL (3.4-5.0); Albumin/Globulin Ratio 1.1 (1.1-1.8); Alkaline Phosphatase 78 U/L (46-116); Anion Gap 10.8 mEq/L (5-15); Aspartate Amino Transferase 17 U/L (15-37); Bilirubin,Total 0.3 mg/dL (0.2-1.0); Blood Urea Nitrogen 15 mg/dL (7-18); Calcium 8.8 mg/dL (8.5-10.1); Carbon Dioxide 28 mmol/L (21.0-32.0); Chloride 106 mmol/L (98-107); Globulin 3.4 gm/dl (1.3-3.2); Glucose 98 mg/dL (74-106); Lactate Dehydrogenase 143 U/L (82-234); Potassium 3.8 mmoL/L (3.5-5.1); Sodium 141 mmol/L (136-145); Total Protein,Serum 7.1 gm/dL (6.4-8.2)
[2018-04-03 19:44] LABS: Amorphous Sediment,Urine 1+ /lpf; Bacteria,Urine 3+ /lpf
[2018-04-04 06:51] LABS: Basophils % 0.2 % (0.1-2.0); Eosinophils % 0.5 % (0.1-12.0); Hemoglobin 10.4 g/dL (12.2-16.2); Lymphocytes # 0.4 K/mm3 (0.7-4.5); Lymphocytes % 16.3 K/mm3 (10-50); Mean Corpuscular HGB Conc 34.6 g/dL (31.8-35.4); Mean Corpuscular Hemoglobin 32.9 pg (27.0-31.2); Mean Corpuscular Volume 95.1 fl (81-99); Mean Platelet Volume 7.3 fl (7.4-10.4); Monocytes # 0.1 K/mm3 (0.1-1.0); Monocytes % 4.2 % (1.7-9.3); Neutrophils # 1.7 K/mm3 (1.8-7.8); Neutrophils % 78.9 % (37.0-80.0); Platelet Count 264 K/mm3 (142-424); Red Blood Count 3.15 M/mm3 (4.20-5.40); Red Cell Distribution Width 14.1 % (11.5-17.5); White Blood Count 2.2 K/mm3 (4.8-10.8)
--- NOTE | 2018-04-04 07:46 | History & Physical Report ---
*Admission Date: 04/03/18 *Chief complaint: Short of air *History of present illness: 77-year-old female with multiple comorbidities including COPD who presents with 2 weeks of worsening cough. She complains that over the past few days she has had worsening nausea and headache. Shortness of breath has been most prominent over the past 4-5 days with yellow phlegm and need for continuous oxygen from her baseline nighttime oxygen. She denies chest pain, fever, increased leg swelling, palpitations, syncope, diarrhea, focal deficits. Pt granddaughter states pt is anxious and concerned the normaapro is making her sick. [facility] [place] History I have reviewed the patient's past medical history: Yes Medical History: Reports:: Asthma, Cardiomyopathy, Chronic Obstructive Pulmonary Disease (COPD), Coronary Artery Disease, Gastroesophageal Reflux Disease(GERD), Hyperlipidemia, Hypertension, Kidney Stones Denies:: Cancer, Diabetes Mellitus Type 1, Diabetes Mellitus Type 2, MRSA Other Medical History: Reports: Arthritis Other Surgeries: Yes: No Previous Surgery, Skin Cancer Excision (SKIN CANCER REMOVAL ON NOSE) Amputation: No Fractures: No - *Social History Educational Level: Attended High School Smoking Status: Current every day smoker Tobacco Type: cigarettes # Packs/Day (cigarettes): 1 #Yrs smoked (if former smoker): 60 Alcohol Intake: never Substance Use Type: denies use Occupational Status: retired Housing: house - Psychiatric History Expresses thoughts of harming self/others: None Suicide Plan Description: No Plan *Family Hx:: Cancer, Coronary Artery Disease, Heart Attack, Hypertension, Stroke Review of Systems - Review of Systems Review of systems:: pertinent systems reviewed and negative unless documented below Meds Home Medications Medication Instructions Recorded Confirmed Type alendronate 70 mg tablet 70 mg PO WEEKLY 12/24/17 04/04/18 History aspirin 81 mg tablet,delayed 81 mg PO DAILY tab 12/24/17 04/03/18 History release budesonide-formoterol HFA 160 2 puff INHALATION BID 12/24/17 04/03/18 History mcg-4.5 mcg/actuation aerosol inhaler cholecalciferol (vitamin D3) 5,000 5,000 unit PO DAILY cap 12/24/17 04/03/18 History unit capsule clopidogrel 75 mg tablet 75 mg PO DAILY tab 12/24/17 04/03/18 History levothyroxine 75 mcg tablet 75 mcg PO DAILY tab 12/24/17 04/03/18 History ranitidine 150 mg tablet 150 mg PO QHS 12/24/17 04/03/18 History simvastatin 40 mg tablet 40 mg PO HS 12/24/17 04/04/18 History Benzonatate [Benzonatate 100mg 100 mg PO TIDP PRN 01/04/18 04/03/18 History cap] Escitalopram Oxalate [Lexapro] 10 mg PO DAILY 01/04/18 04/03/18 History buPROPion HCl [Bupropion HCl Sr] 150 mg PO BID 01/04/18 04/03/18 History Potassium Chloride [K-Tab ER 10 10 meq PO BID 01/22/18 04/03/18 History mEq] Sacubitril/Valsartan [Entresto 49 49 mg PO BID 03/30/18 04/03/18 History mg-51 mg Tablet] Allergies Allergy/AdvReac Type Severity Reaction Status Date / Time hydrocodone [HYDROCODONE] Allergy Unknown Verified 01/29/18 11:51 morphine [MORPHINE] Allergy Unknown Verified 01/29/18 11:51 Exam Vital signs and Labs for Last 24 Hours: Temp Pulse Resp BP Pulse Ox 97.9 F 84 22 122/70 94 L 04/04/18 03:59 04/04/18 07:41 04/04/18 03:59 04/04/18 03:59 04/04/18 07:41 Laboratory Results - last 24 hr 04/03/18 19:00: WBC 5.4, RBC 3.54 L, Hgb 11.5 L, Hct 33.0 L, MCV 93.4, MCH 32.4 H, MCHC 34.7, RDW 14.0, Plt Count 319, MPV 7.6, Neut % (Auto) 63.9, Lymph % (Auto) 28.5, [place] % (Auto) 5.9, Eos % (Auto) 0.8, Baso % (Auto) 0.8, Neut # (Auto) 3.5, Lymph # (Auto) 1.6, [place] # (Auto) 0.3, Eos # (Auto) 0.1, Baso # (Auto) 0.0 04/03/18 19:00: PT 9.9, INR 0.96, APTT 30.3 04/03/18 19:00: Sodium 141, Potassium 3.8, Chloride 106, Carbon Dioxide 28, Anion Gap 10.8, BUN 15, Creatinine 0.74, Estimated Creat Clear 33, Estimated GFR 76, Est GFR ( Amer) 92, Glucose 98, Calcium 8.8, Total Bilirubin 0.3, AST 17, ALT 13, Alkaline Phosphatase 78, Lactate Dehydrogenase 143, Troponin I < 0.02, Total Protein 7.1, Albumin 3.7, Globulin 3.4 H, Albumin/Globulin Ratio 1.1 04/03/18 19:00: B-Natriuretic Peptide 24 04/03/18 19:00: Lactate 0.8 04/03/18 19:29: Urine Color Yellow, Urine Appearance Cloudy, Urine pH 7.5, Ur Specific [place] 1.015, Urine Protein 1+, Urine Glucose (UA) Negative, Urine Ketones Negative, Urine Blood 2+, Urine Nitrate Negative, Urine Bilirubin Negative, Urine Urobilinogen 1.0, Ur Leukocyte Esterase 3+ A, Urine RBC 3-5, Urine WBC 5-10, Ur Squamous Epith Cells 3-5, Amorphous Sediment 1+, Urine Bacteria 3+ 04/04/18 06:25: WBC 2.2 L D, RBC 3.15 L, Hgb 10.4 L, Hct 30.0 L, MCV 95.1, MCH 32.9 H, MCHC 34.6, RDW 14.1, Plt Count 264, MPV 7.3 L, Neut % (Auto) 78.9, Lymph % (Auto) 16.3, [place] % (Auto) 4.2, Eos % (Auto) 0.5, Baso % (Auto) 0.2, Neut # (Auto) 1.7 L, Lymph # (Auto) 0.4 L, [place] # (Auto) 0.1, Eos # (Auto) 0.0, Baso # (Auto) 0.0 I & O for Last 24 hours: Intake & Output 04/01/18 04/02/18 04/03/18 04/04/18 23:59 23:59 23:59 23:59 Intake Total 633 / 633 Output Total 400 / 400 Balance 233 / 233 Weight 44.225 kg Microbiology Reports for the Last 24 Hours: Microbiology 04/03/18 19:29 Urine,Clean Catch Urine Culture - Preliminary Gram Negative Rods - Constitutional cachectic - *Routine HEENT Exam Head: Present: normocephalic, atraumatic Eye: Present: EOMI, PERRL ENT: Present: mucous membranes moist Comments: Bitemporal wasting - *Routine Neck Exam Present: supple, full ROM. Absent: JVD, lymphadenopathy - Routine Chest/Breast/Axilla Exam Comments: barrel shaped - *Routine Respiratory Exam Present: accessory muscle use, prolonged expiratory phase, wheezes, crackles (Prominent left lower lobe), diminished air movement. Absent: CTA bilaterally - *Routine Cardiovascular Exam Present: RRR, Normal S1, Normal S2. Absent: murmur Comments: Distant heart sounds - *Routine Abdominal Exam Present: soft, normoactive bowel sounds. Absent: tenderness - *Routine Rectal Exam Patient deferred: visual exam - *Routine Exam Patient deferred: external exam - *Routine Extremities Exam Absent: cyanosis, clubbing, edema - *Routine Skin Exam Present: intact. Absent: cyanosis, erythema Comments: Thin - *Routine Neurological Exam Present: alert, oriented X3, CN II-XII intact Assessment and Plan (1) Sepsis Current visit: Yes Status: Acute Qualifiers: Sepsis type: sepsis due to unspecified organism Qualified Code(s): A41.9 - Sepsis, unspecified organism Category: Medical Code(s): A41.9 - Sepsis, unspecified organism Criteria met with leukopenia less than 4000, tachycardia greater than 90 bpm, suspected source with left lower lobe pneumonia -Continue Levaquin -Negative lactate -Normal renal function, no signs of end organ damage at this time. (2) COPD exacerbation Current visit: Yes Status: Acute Category: Medical Code(s): J44.1 - Chroni c obstructive pulmonary disease with (acute) exacerbation Acute on chronic hypoxemic respiratory failure COPD exacerbation -Continue antibiotics as ordered -Continue steroids -Continue supplemental oxygen -Wean oxygen as tolerated goal greater than 92 while awake, greater than 88 while asleep -Nebulizer as ordered (3) Anxiety Current visit: No Status: Chronic Category: Medical Code(s): F41.9 - Anxiety disorder, unspecified Present on admission, continue home medications (4) Gastroesophageal reflux disease Current visit: No Status: Chronic Qualifiers: Esophagitis presence: esophagitis presence not specified Qualified Code(s): K21.9 - Gastro-esophageal reflux disease without esophagitis Category: Medical Code(s): K21.9 - Gastro-esophageal reflux disease without esophagitis Continue home medications, present on admission (5) Hypertensive disorder Current visit: No Status: Acute Qualifiers: Hypertension type: essential hypertension Qualified Code(s): I10 - Essential (primary) hypertension Category: Medical Code(s): I10 - Essential (primary) hypertension (6) Tobacco use Current visit: No Status: Acute Category: Social Hx Code(s): Z72.0 - Tobacco use Complicates respiratory failure -Nicotine replacement as needed - Assessment and plan all Dx Assessment and Plan for all problems:: Continues to require inpatient medical management due to respiratory failure.
[2018-04-04 10:29] LABS: Anion Gap 13.6 mEq/L (5-15); Calcium 8.4 mg/dL (8.5-10.1); Potassium 4.6 mmoL/L (3.5-5.1)
--- NOTE | 2018-04-04 11:33 | Pharmacy Consult Notes ---
[facility] Pharmacy VTE Monitoring - Patient Demographics Admission date: 04/04/18 Report Date: 04/04/18 Time: 11:33 Allergies/Adverse Reactions: Patient Allergies hydrocodone [HYDROCODONE] Allergy (Unknown, Verified 01/29/18 11:51) morphine [MORPHINE] Allergy (Unknown, Verified 01/29/18 11:51) Height: 1.55 m Weight: 44.225 kg Patient Problems: Current Active Problems COPD exacerbation (Acute) Acute anxiety (Acute) UTI (urinary tract infection) (Acute) Bronchitis (Acute) - VTE Risk Labs: VTE Related Lab Results Hgb 10.4 g/dL (12.2-16.2) L 04/04/18 06:25 Hct 30.0 % (37.0-47.0) L 04/04/18 06:25 Plt Count 264 K/mm3 (142-424) 04/04/18 06:25 PT 9.9 seconds (9.4-11.8) 04/03/18 19:00 INR 0.96 (0.9-1.1) 04/03/18 19:00 APTT 30.3 seconds (23.6-34.0) 04/03/18 19:00 BUN 15 mg/dL (7-18) 04/04/18 06:25 Creatinine 0.78 mg/dL (0.55-1.02) 04/04/18 06:25 Estimated Creat Clear 33 mL/min (0-300) 04/04/18 06:25 VTE Score: 6 VTE Risk Level: Moderate Risk - Prophylaxis Types of VTE Prophylaxis: TEDS Knee High (EDUARDO HOSE ORDERED) Location of Applied Device: Bilateral Lower Extremeties
--- NOTE | 2018-04-05 10:20 | Discharge Summary ---
General - General Admission date:: 04/03/18 Discharge date: 04/05/18 HPI HPI: 77-year-old female with multiple comorbidities including COPD who presents with 2 weeks of worsening cough. She complains that over the past few days she has had worsening nausea and headache. Shortness of breath has been most prominent over the past 4-5 days with yellow phlegm and need for continuous oxygen from her baseline nighttime oxygen. She denies chest pain, fever, increased leg swelling, palpitations, syncope, diarrhea, focal deficits. Pt granddaughter states pt is anxious and concerned the normaapro is making her sick. Hospital Course Hospital Course: Ms. Alcantara is a 77-year-old female admitted for acute hypoxemic respiratory failure due to left lower lobe pneumonia in the setting of COPD exacerbation. Additionally urine was collected on admission and speciated out greater than 100,000 CFU's of E. coli. Tolerated Levaquin with defervescence of fever, improvement in respiratory status, and de-escalation of oxygen support. Given sensitivity of urinary tract infection antibiotics switched on day of discharge to Augmentin and azithromycin. Objective Vital signs: Temp Pulse Resp BP Pulse Ox 97.3 F L 87 18 98/53 90 L 04/05/18 07:56 04/05/18 07:56 04/05/18 07:56 04/05/18 07:56 04/05/18 07:56 - *Routine HEENT Exam Head: Present: normocephalic, atraumatic Eye: Present: EOMI, PERRL ENT: Present: mucous membranes moist - *Routine Neck Exam Present: supple, full ROM. Absent: JVD, lymphadenopathy - *Routine Respiratory Exam Present: CTA bilaterally. Absent: accessory muscle use Comments: Faint fine crackles left lower lobe, good air movement bilaterally, no wheeze - *Routine Cardiovascular Exam Present: RRR, Normal S1, Normal S2. Absent: murmur - *Routine Abdominal Exam Present: soft, normoactive bowel sounds - *Routine Rectal Exam Patient deferred: visual exam - *Routine Exam Patient deferred: external exam - *Routine Extremities Exam Absent: cyanosis, clubbing, edema - *Routine Skin Exam Present: intact. Absent: cyanosis, erythema - *Routine Neurological Exam Present: alert, oriented X3, CN II-XII intact. Absent: altered mental status Results Labs on day of discharge: Labs from last 24 hours 04/04/18 06:25 Sodium 140 Potassium 4.6 D Chloride 106 Carbon Dioxide 25 Anion Gap 13.6 BUN 15 Creatinine 0.78 Estimated Creat Clear 33 Estimated GFR 72 Est GFR ( Amer) 87 Glucose 145 H D Calcium 8.4 L DS: Diagnosis - Discharge Diagnosis (1) Sepsis Status: Acute (2) COPD exacerbation Status: Acute (3) Anxiety Status: Chronic (4) Gastroesophageal reflux disease Status: Chronic (5) Hypertensive disorder Status: Acute (6) Tobacco use Status: Acute Discharge Plan - Patient Discharge Instructions ACTIVITY: Continue current activity, Ambulate as tolerated DIET: continue same diet - Follow up Plan Follow up with: Sabas Flores MD [Staff Physician] - 2 weeks Disposition: Home, Self-Halfway Medications: Home Medications Medication Instructions Recorded Confirmed Type alendronate 70 mg tablet 70 mg PO WEEKLY 12/24/17 04/04/18 History aspirin 81 mg tablet,delayed 81 mg PO DAILY tab 12/24/17 04/03/18 History release budesonide-formoterol HFA 160 2 puff INHALATION BID 12/24/17 04/03/18 History mcg-4.5 mcg/actuation aerosol inhaler cholecalciferol (vitamin D3) 5,000 5,000 unit PO DAILY cap 12/24/17 04/03/18 History unit capsule clopidogrel 75 mg tablet 75 mg PO DAILY tab 12/24/17 04/03/18 History levothyroxine 75 mcg tablet 75 mcg PO DAILY tab 12/24/17 04/03/18 History ranitidine 150 mg tablet 150 mg PO QHS 12/24/17 04/03/18 History simvastatin 40 mg tablet 40 mg PO HS 12/24/17 04/04/18 History Benzonatate [Benzonatate 100mg 100 mg PO TIDP PRN 01/04/18 04/03/18 History cap] Escitalopram Oxalate [Lexapro] 10 mg PO DAILY 01/04/18 04/03/18 History buPROPion HCl [Bupropion HCl Sr] 150 mg PO BID 01/04/18 04/03/18 History Potassium Chloride [K-Tab ER 10 10 meq PO BID 01/22/18 04/03/18 History mEq] Sacubitril/Valsartan [Entresto 49 49 mg PO BID 03/30/18 04/03/18 History mg-51 mg Tablet] Prescriptions/Medication Reconciliation: New Amoxicillin/Potassium Clav [Augmentin 500mg tab] 1 each PO TID 6 Days #17 tablet Continue alendronate 70 mg tablet 70 mg PO WEEKLY aspirin 81 mg tablet,delayed release 81 mg PO DAILY tab clopidogrel 75 mg tablet 75 mg PO DAILY tab levothyroxine 75 mcg tablet 75 mcg PO DAILY tab simvastatin 40 mg tablet 40 mg PO HS budesonide-formoterol HFA 160 mcg-4.5 mcg/actuation aerosol inhaler 2 puff INHALATION BID cholecalciferol (vitamin D3) 5,000 unit capsule 5,000 unit PO DAILY cap ranitidine 150 mg tablet 150 mg PO QHS buPROPion HCl [Bupropion HCl Sr] 150 mg PO BID Benzonatate [Benzonatate 100mg cap] 100 mg PO TIDP PRN PRN Reason: Cough Escitalopram Oxalate [Lexapro] 10 mg PO DAILY Albuterol Sulfate [Albuterol Sulfate 2.5mg/0.5ml Neb] 2.5 mg IH Q4HP PRN #60 neb PRN Reason: Shortness Of Breath Potassium Chloride [K-Tab ER 10 mEq] 10 meq PO BID Sacubitril/Valsartan [Entresto 49 mg-51 mg Tablet] 49 mg PO BID
== END 2018-04-05 11:35 | disposition home or self-care (01) ==
LOC: EDBD → ER 18:20 → 2ND 18:20 → OBSVTOIN 20:46 → INTOOBSV 20:46 → 2ND 20:47
PROVIDERS: ADMIT Internal Medicine Adolescent Medicine; ATTEND Family Medicine
CPT/HCPCS: 36415; 71010; 71045; 80048; 80053; 81001; 83605; 83615; 83880; 84484; 85025; 85610; 85730; 87040; 87070; 87086; 87088; 87186; 87205; 93005; 94640; 94761; 96365; 96375; 99284; G0378; J1956

== ENCOUNTER → 2018-04-14 09:27 | Outpatient (POV) | payer MEDICARE, SELFPAY | PROVIDERS: PCP Family Medicine; Visit Provider Internal Medicine | DX: Z00.00 Encounter for general adult medical examination without abnormal findings (principal) ==

== ENCOUNTER 2019-01-16 18:51 | Emergency (ER) | payer MEDICARE, SELFPAY ==
[2019-01-16 19:09] VITALS: BP 142/87; PULSE 79; RESP 17; TEMP 36.6; O2SAT 98; BMI 16.6
--- NOTE | 2019-01-16 19:13 | XR_ITS ---
XR forearm LT 2V HISTORY: Posttraumatic pain ITS.REASON: PAIN ORDERING PHYSICIAN: Digna López APRN PATIENT AGE: 78 years COMPARISON: None FINDINGS: No obvious fracture, dislocation, lytic change or blastic change. Normal mineralization. Unremarkable soft tissues IMPRESSION: Negative forearm
--- NOTE | 2019-01-16 19:40 | HMH.EDUTC ---
[facility] [place]ression: Arm pain Qualifiers: Laterality: left Qualified Code(s): M79.602 - Pain in left arm Disposition: Home, Self-Care Condition on Discharge: Good Instructions: DI for Chronic Pain -- Adult, DI for Elbow Pain, Forearm Muscle Strain, How To Perform RICE (Rest, Ice, Compress, Elevate) Additional Instructions: *RICE, Rest the extremity, Ice 15-20 minutes 3-4 times daily, for the first 48 hours then warm compresses may help more with pain, Compress- wear the freddy wrap as discussed as much as possible to help reduce swelling and pain, Elevate the extremity when at rest *Freddy wrap is for support and help control swelling, use it except in the shower. Be sure that is not to tight but not to loose either *Elevate when resting *Ibuprofen every 6-8 hours as needed for pain an inflammation if your doctor has told you that it is ok for you to take Ibuprofen or Motrin If need something more can take Tylenol in between doses of Ibuprofen to help Immediately follow up with your family doctor for new or worsening of symptoms, or no noticeable improvement over the next 3-5 days Straight to ER if any chest pain, pain radiating to jaw area, trouble breathing or any life threatening symptoms Referrals: Manuel Abdul MD [Primary Care Provider] - As needed (Follow up on Friday if no improvement or any worsening of symptoms) Time of Disposition: 19:55 Medical Decision Making - Gabriel Inquiry Pt receiving controlled substance: No Gabriel was queried for this patient: No Vital Signs: 01/16/19 19:09 Temperature 97.9 F Temperature Source Oral Pulse Rate [Right Brachial] 79 Respiratory Rate 17 Blood Pressure [Right Arm] 142/87 H Blood Pressure Mean [Right Arm] 105 Blood Pressure Source [Right Arm] Automatic Cuff Blood Pressure Position [Right Arm] Sitting 02 Sat by Pulse Oximetry 98 Oxygen Delivery Method Room Air Orders (Tests/Meds): ORDERS Category Date Time Status XR forearm LT 2V Stat Exams 01/16/19 19:13 Taken Medical Decision Narrative: Recommended transfer to ER due to past medical history and complaint of pain in left arm for further evaluation and cardiac workup Patient refused States its her elbow not her heart she did not want to go to ER States that if she started having chest pain or pain moved up into her shoulder, jaw or chest she would come back to the ER and be evaluated State that warm compresses and ice along with Advil help with the pain and she feels like it is arthritis Patient informed that cardiac symptoms are different each time and pain in left arm could be associated with heart and needed to have cardiac work up and patient still refused States that she would come back if she started having chest pain [facility] [place] - General Stated complaint: Left arm pain, no accident Time Seen by Provider: 01/16/19 19:40 Mode of Arrival: Family Vehicle Source of Information: Patient Limitations: No Limitations Description of Symptoms (Recalled from Triage Doc. by RN): C/O LEFT ARM PAIN BETWEEN ELBOW AND WRIST X 3 DAYS. NO KNOWN INJURY HEENT Symptoms (Recalled from RN notes): No Resp Symptoms (Recalled from RN notes): No Skin Symptoms (Recalled from RN notes): No MS Symptoms (Recalled from RN notes): Yes Functional Status (Recalled from RN notes): N/A - History of Present Illness Provider Complaint: Patient states that about 4 days ago she started having pain in her left elbow and forearm State that she hasn't fallen or anything and has a history of arthritis States that she has taken some advil and it helped some State that family wanted her to come in and get it looked at to make sure she hasn't broke something denies falling denies known injury - Related Data Home Medications Medication Instructions Recorded Confirmed alendronate 70 mg tablet 70 mg PO WEEKLY 12/24/17 04/04/18 aspirin 81 mg tablet,delayed 81 mg PO DAILY tab 12/24/17 04/03/18 release budesonide-formoterol HFA 160 2
--- NOTE | 2019-01-16 19:43 | ED_ITS ---
[facility] [place]ression: Arm pain Qualifiers: Laterality: left Qualified Code(s): M79.602 - Pain in left arm Disposition: Home, Self-Care Condition on Discharge: Good Instructions: DI for Chronic Pain -- Adult, DI for Elbow Pain, Forearm Muscle Strain, How To Perform RICE (Rest, Ice, Compress, Elevate) Additional Instructions: *RICE, Rest the extremity, Ice 15-20 minutes 3-4 times daily, for the first 48 hours then warm compresses may help more with pain, Compress- wear the freddy wrap as discussed as much as possible to help reduce swelling and pain, Elevate the e xtremity when at rest *Freddy wrap is for support and help control swelling, use it except in the shower. Be sure that is not to tight but not to loose either *Elevate when resting *Ibuprofen every 6-8 hours as needed for pain an inflammation if your doctor has told you that it is ok for you to take Ibuprofen or Motrin If need something more can take Tylenol in between doses of Ibuprofen to help Immediately follow up with your family doctor for new or worsening of symptoms, or no noticeable improvement over the next 3-5 days Straight to ER if any chest pain, pain radiating to jaw area, trouble breathing or any life threatening symptoms Referrals: Manuel Abdul MD [Primary Care Provider] - As needed (Follow up on Friday if no improvement or any worsening of symptoms) Time of Disposition: 19:55 Medical Decision Making - Gabriel Inquiry Pt receiving controlled substance: No Gabriel was queried for this patient: No Vital Signs: 01/16/19 19:09 Temperature 97.9 F Temperature Source Oral Pulse Rate [Right Brachial] 79 Respiratory Rate 17 Blood Pressure [Right Arm] 142/87 H Blood Pressure Mean [Right Arm] 105 Blood Pressure Source [Right Arm] Automatic Cuff Blood Pressure Position [Right Arm] Sitting 02 Sat by Pulse Oximetry 98 Oxygen Delivery Method Room Air Orders (Tests/Meds): ORDERS Category Date Time Status XR forearm LT 2V Stat Exams 01/16/19 19:13 Taken Medical Decision Narrative: Recommended transfer to ER due to past medical history and complaint of pain in left arm for further evaluation and cardiac workup Patient refused States its her elbow not her heart she did not want to go to ER States that if she started having chest pain or pain moved up into her shoulder, jaw or chest she would come back to the ER and be evaluated State that warm compresses and ice along with Advil help with the pain and she feels like it is arthritis Patient informed that cardiac symptoms are different each time and pain in left arm could be associated with heart and needed to have cardiac work up and patient still refused States that she would come back if she started having chest pain [facility] [place] - General Stated complaint: Left arm pain, no accident Time Seen by Provider: 01/16/19 19:40 Mode of Arrival: Family Vehicle Source of Information: Patient Limitations: No Limitations Description of Symptoms (Recalled from Triage Doc. by RN): C/O LEFT ARM PAIN BETWEEN ELBOW AND WRIST X 3 DAYS. NO KNOWN INJURY HEENT Symptoms (Recalled from RN notes): No Resp Symptoms (Recalled from RN notes): No Skin Symptoms (Recalled from RN notes): No MS Symptoms (Recalled from RN notes): Yes Functional Status (Recalled from RN notes): N/A - History of Present Illness Provider Complaint: Patient states that about 4 days ago she started having pain in her left e
[2019-01-16 19:58] VITALS: BP 142/87; PULSE 79; RESP 17; TEMP 36.6; O2SAT 98
== END 2019-01-16 20:01 | disposition home or self-care (01) ==
PROVIDERS: Emergency Provider Nurse Practitioner; PCP Family Medicine
DX: M79.602 Pain in left arm (principal); J44.9 Chronic obstructive pulmonary disease, unspecified; I25.10 Atherosclerotic heart disease of native coronary artery without angina pectoris; K21.9 Gastro-esophageal reflux disease without esophagitis; I10 Essential (primary) hypertension; E78.5 Hyperlipidemia, unspecified; F17.210 Nicotine dependence, cigarettes, uncomplicated
CPT/HCPCS: G0463; 73090; 99201

== ENCOUNTER 2019-01-22 03:44 | Observation (INO) ==
[2019-01-22 04:21] LABS: ABG Base Excess 0.3 mmol/L (-2.4-2.3); ABG Oxygen Saturation 99 % (90-100); ABG PCO2 40.5 mmhg (35.0-45.0); ABG PH 7.41 mmol/L (7.35-7.45); ABG PO2 176.9 mmhg (80-100); ABG TCO2 26.2 mmhg (23-27)
[2019-01-22 04:25] LABS: Allen's Test Acceptable; Oxygen neb at 6L %
[2019-01-22 04:26] LABS: Basophils # 0.1 K/mm3 (0-0.2); Basophils % 1.3 % (0.1-2.0); Eosinophils # 0.1 K/mm3 (0.0-0.4); Eosinophils % 1.8 % (0.1-12.0); Hematocrit 41.6 % (37.0-47.0); Hemoglobin 12.6 g/dL (12.2-16.2); Lymphocytes # 1.8 K/mm3 (0.7-4.5); Lymphocytes % 25.5 % (10-50); Mean Corpuscular HGB Conc 30.2 g/dL (31.8-35.4); Mean Corpuscular Volume 96.8 fl (81-99); Mean Platelet Volume 7.8 fl (7.4-10.4); Monocytes # 0.4 K/mm3 (0.1-1.0); Monocytes % 6.2 % (1.7-9.3); Neutrophils # 4.6 K/mm3 (1.8-7.8); Neutrophils % 65.3 % (37.0-80.0); Platelet Count 222 K/mm3 (142-424); Red Cell Distribution Width 15.6 % (11.5-17.5)
[2019-01-22 04:52] LABS: Alanine Aminotransferase 14 U/L (12-78); Albumin Level 3.1 gm/dL (3.4-5.0); Albumin/Globulin Ratio 0.9 (1.1-1.8); Alkaline Phosphatase 180 U/L (46-116); Anion Gap 14.5 mEq/L (5-15); Aspartate Amino Transferase 26 U/L (15-37); Bilirubin,Total 0.3 mg/dL (0.2-1.0); Blood Urea Nitrogen 18 mg/dL (7-18); Calcium 8.2 mg/dL (8.5-10.1); Carbon Dioxide 28 mmol/L (21.0-32.0); Chloride 105 mmol/L (98-107); Globulin 3.5 gm/dl (1.3-3.2); Glucose 99 mg/dL (74-106); Sodium 144 mmol/L (136-145); Total Protein,Serum 6.6 gm/dL (6.4-8.2)
--- NOTE | 2019-01-22 04:53 | Emergency Department Note ---
ED Disposition Clinical Impression: Acute exacerbation of chronic obstructive airways disease, LBBB (left bundle branch block), Anxiety, Tobacco use Community acquired pneumonia Qualifiers: Laterality: right Lung location: lower lobe of lung Qualified Code(s): J18.1 - Lobar pneumonia, unspecified organism Disposition: Admitted as Observation Condition on Discharge: Fair - Critical Care Critical Care Time: No Attestation: On 01/22/19, the high probability of a clinically significant, sudden or life threatening deterioration of the following system(s) required my full and direct attention, intervention and personal management. The time I documented below is in addition to time spent performing reported procedures but includes the following listed in this critical care notation. Medical Decision Making - Medical Records Medical records reviewed: Yes: I reviewed the patient's medical records. - Gabriel Inquiry Pt receiving controlled substance: No Vital Signs: 01/22/19 03:44 01/22/19 04:44 Temperature 98.8 F Temperature Source Oral Pulse Rate [Right Radial] 96 H 89 Respiratory Rate 22 18 Blood Pressure [Right Arm] 141/62 H 150/75 H Blood Pressure Mean [Right Arm] 88 100 02 Sat by Pulse Oximetry 100 98 Oxygen Delivery Method Room Air - Lab Data Lab results reviewed: Yes: I reviewed the patient's lab results. Lab Results 01/22/19 03:49: Specimen Source Right brachial, O2 % neb at 6l, ABG pH 7.41, ABG pCO2 40.5, ABG pO2 176.9 H, ABG HCO3 25.0, ABG Total CO2 26.2, ABG O2 Saturation 99, ABG Base Excess 0.3, Michael Test Acceptable 01/22/19 04:05: WBC 7.0, RBC 4.30, Hgb 12.6, Hct 41.6, MCV 96.8, MCH 29.2, MCHC 30.2 L, RDW 15.6, Plt Count 222, MPV 7.8, Neut % (Auto) 65.3, Lymph % (Auto) 25.5, [place] % (Auto) 6.2, Eos % (Auto) 1.8, Baso % (Auto) 1.3, Neut # (Auto) 4.6, Lymph # (Auto) 1.8, [place] # (Auto) 0.4, Eos # (Auto) 0.1, Baso # (Auto) 0.1 01/22/19 04:05: Sodium 144, Potassium 3.5, Chloride 105, Carbon Dioxide 28, Anion Gap 14.5, BUN 18, Creatinine 0.58, Estimated Creat Clear 30, Estimated GFR 101, Est GFR ( Amer) 122, Glucose 99, Calcium 8.2 L, Total Bilirubin 0.3, AST 26, ALT 14, Alkaline Phosphatase 180 H, Troponin I < 0.02, Total Protein 6.6, Albumin 3.1 L, Globulin 3.5 H, Albumin/Globulin Ratio 0.9 L 01/22/19 04:05: Lactate 1.2 Result diagrams: 01/22/19 04:05 01/22/19 04:05 Orders (Tests/Meds): ED MEDICATIONS Generic Name Dose Route Start Last Admin Trade Name Freq PRN Reason Stop Dose Admin Azithromycin 500 mg/ Sodium 250 mls @ 250 mls/hr 01/22/19 05:30 Chloride IV 02/05/19 05:29 Q24H ROSIO Protocol Piperacillin Sod/Tazobactam 50 mls @ 100 mls/hr 01/22/19 05:30 Sod 3.375 gm/ Sodium Chloride IV 02/05/19 05:29 Q8H ROSIO Protocol Sodium Chloride 3 ml 01/22/19 04:11 Sodium Chloride 3% 15ml [facility] 02/21/19 04:10 ONCE PRN INDUCE SPUTUM COLLECTION Discontinued Medications Generic Name Dose Route Start Last Admin Trade Name Freq PRN Reason Stop Dose Admin Albuterol/Ipratropium 3 ml 01/22/19 04:11 Duoneb 3ml Neb 01/22/19 04:12 ONCE ONE Methylprednisolone Sodium Succinate 125 mg 01/22/19 03:49 01/22/19 04:11 Solu-Medrol 125mg/2ml Vial IV 01/22/19 03:50 125 mg ONCE ONE Administration ORDERS Category Date Time Status Blood Culture Stat Micro 01/22/19 04:12 Received Sputum Culture & Gram Stain Stat Micro 01/22/19 04:11 Ordered - Radiology Data #1 Image(s): Chest Image Reviewed: Yes I reviewed the patient's radiology image Preliminary Findings: Abnormal (copd/changes rt base ) - ECG Data Tracing #1 Normal Sinus Rhythm: Yes Ischemic changes: non-specific ST-T wave changes Conduction abnormalities present: LBBB ECG compared to prior tracings: there are no significant changes - Physician Consults Physician Consulted: coretta Reason -: Admission Resp/SOB HPI - General Chief Complaint: Shortness of Breath/Dyspnea Stated Complaint: SHORTNESS OF BREATH Time Seen by Provider: 01/22/19 04:00 Mode of Arrival: EMS Source of Information: Patient, Relative, EMS, Medical Record Limitations: No Limitations Description of Symptoms (Recalled from ER Triage Doc. by RN): PT C/O SHORTNESS OF BREATH AND COUGH. PT STATES SHE HAS COPD AND STILL SMOKES. PT STATES SHE HAS BEEN "EXTRA HOT." - History of Present Illness pt with known copd and o2 dep and continues to use tob presents with progressive sob and deeling sob despite meds and breathing treatments - sl prod cough at h ome - no hemoptysis -some chest pain with cough and resp MD Complaint: shortness of breath, cough Onset (ago): day(s) Severity: severe Known history of: COPD Associated symptoms: cough Treatment prior to arrival: oxygen, bronchodilator - Related Data Home oxygen amount: 2 liters Home Medications Medication Instructions Recorded Confirmed aspirin 81 mg tablet,delayed 81 mg PO DAILY tab 12/24/17 01/22/19 release budesonide-formoterol HFA 160 2 puff INHALATION BID 12/24/17 01/22/19 mcg-4.5 mcg/actuation aerosol inhaler cholecalciferol (vitamin D3) 5,000 1,000 unit PO DIRECTED cap 12/24/17 01/22/19 unit capsule clopidogrel 75 mg tablet 75 mg PO DAILY tab 12/24/17 01/22/19 levothyroxine 75 mcg tablet 75 mcg PO DAILY tab 12/24/17 01/22/19 ranitidine 150 mg tablet 150 mg PO QHS 12/24/17 01/22/19 simvastatin 40 mg tablet 20 mg PO HS 12/24/17 01/22/19 Benzonatate [Benzonatate 100mg 100 mg PO TIDP PRN 01/04/18 01/22/19 cap] Escitalopram Oxalate [Lexapro] 10 mg PO DAILY 01/04/18 01/22/19 Potassium Chloride [K-Tab ER 10 10 meq PO BID 01/22/18 01/22/19 mEq] Sacubitril/Valsartan [Entresto 49 49 mg PO BID 03/30/18 01/22/19 mg-51 mg Tablet] Previous Rx's Medication Instructions Recorded Albuterol Sulfate [Albuterol 2.5 mg IH Q4HP PRN #60 neb 01/05/18 Sulfate 2.5mg/0.5ml Neb] Allergies Allergy/AdvReac Type Severity Reaction Status Date / Time hydrocodone [HYDROCODONE] Allergy Unknown Verified 01/22/19 03:48 morphine [MORPHINE] Allergy Unknown Verified 01/22/19 03:48 [facility] History - Hepatitis A Screen Drug use history?: No High risk sexual behaviors?: No History of sexually transmitted infection?: No Currently employed?: No Childcare worker?: No Do you have indoor plumbing?: Yes Do you have electricity?: Yes Attestation statement:: This patient has been screened for Hepatitis A risk factors. I have reviewed the patient's past medical history: Yes Medical History: Reports:: Asthma, Cancer (SKIN), Cardiomyopathy, Chronic Obstructive Pulmonary Disease (COPD), Coronary Artery Disease, Gastroesophageal Reflux Disease(GERD), Hyperlipidemia, Hypertension, Kidney Stones Denies:: Diabetes Mellitus Type 1, Diabetes Mellitus Type 2, MRSA Other Medical History: Reports: Arthritis Other Surgeries: Yes: No Previous Surgery, Skin Cancer Excision (SKIN CANCER REMOVAL ON NOSE) Amputation: No Fractures: Yes (BACK AND HIP) - Social History Smoking Status: Current every day smoker Tobacco Type: cigarettes # Packs/Day (cigarettes): 1 #Yrs smoked (if former smoker): 60 Alcohol Intake: never Substance Use Type: denies use Occupational Status: retired Housing: house - Psychiatric History Expresses thoughts of harming self/others: None Suicide Plan Description: No Plan Family Hx:: Cancer, Coronary Artery Disease, Heart Attack, Hypertension, Stroke ROS Obtained: Yes All systems reviewed & no additional complaints - Constitutional Constitutional: Denies fever(s) - Eyes Eyes: Denies change in vision - ENT Ears, Nose, Mouth, and Throat: Denies sore throat - Cardiovascular Cardiovascular: Denies chest pain - Respiratory Respiratory: Yes as per HPI, Yes cough, No coughing up blood - Gastrointestinal Gastrointestingal: Denies: abdominal pain - Genitourinary Female Genitourinary: Denies hematuria - Musculoskeletal Musculoskeletal: Denies joint pain - Integumentary/Breasts Skin/Breast: Denies rash - Neurologic Neurologic: Denies seizure-like activity Physical Exam - General General appearance: alert, cachectic - Head Head exam: normocephalic - Eye Eye exam: Present: PERRL, EOMI. Absent: scleral icterus - ENT ENT exam: Present: mucous membranes dry - Neck Neck exam: Present: trachea midline - Respiratory Respiratory exam: Present: wheezes, accessory muscle use, prolonged expiratory phase. Absent: respiratory distress - Cardiovascular Cardiovascular exam: Present: regular rate, systolic murmur, +S4 - Abdominal Exam Abdominal exam: Present: soft - Extremities Exam Extremities exam: Absent: calf tenderness - Neurological Exam Neurological exam: Present: alert, CN II-XII intact - Psychiatric Psychiatric exam: Present: normal affect - Skin Skin exam: Absent: rash
--- NOTE | 2019-01-22 07:25 | Pharmacy Consult Notes ---
[facility] Pharmacy VTE Monitoring - Patient Demographics Admission date: 01/21/19 Report Date: 01/22/19 Time: 07:25 Allergies/Adverse Reactions: Patient Allergies hydrocodone [HYDROCODONE] Allergy (Unknown, Verified 01/22/19 03:48) morphine [MORPHINE] Allergy (Unknown, Verified 01/22/19 03:48) Height: 1.45 m Weight: 36.287 kg Patient Problems: Current Active Problems (Updated 01/22/19 @ 05:45 by Moshe Miner MD) Acute exacerbation of chronic obstructive airways disease (Acute) Anxiety (Chronic) LBBB (left bundle branch block) (Acute) Tobacco use (Acute) Community acquired pneumonia (Acute) - VTE Risk Labs: VTE Related Lab Results Hgb 12.6 g/dL (12.2-16.2) 01/22/19 04:05 Hct 41.6 % (37.0-47.0) 01/22/19 04:05 Plt Count 222 K/mm3 (142-424) 01/22/19 04:05 BUN 18 mg/dL (7-18) 01/22/19 04:05 Creatinine 0.58 mg/dL (0.55-1.02) 01/22/19 04:05 Estimated Creat Clear 30 mL/min (50-200) 01/22/19 04:05 Was VTE Risk Assessment Performed: Yes VTE Score: 11 VTE Risk Level: Moderate Risk Clinical Trial Participant: No - Prophylaxis VTE Prophylaxis Ordered?: Yes Types of VTE Prophylaxis: TEDS Knee High
--- NOTE | 2019-01-22 08:04 | History & Physical Report ---
*Admission Date: 01/21/19 *Chief complaint: [facility] History Medical History: Reports:: Asthma, Cancer (SKIN), Cardiomyopathy, Chronic Obstructive Pulmonary Disease (COPD), Coronary Artery Disease, Gastroesophageal Reflux Disease(GERD), Hyperlipidemia, Hypertension, Kidney Stones, MRSA Denies:: Diabetes Mellitus Type 1, Diabetes Mellitus Type 2 *Have you ever received a pneumonia vaccine?: Yes *Have you received a flu vaccine this season?: Yes Other Medical History: Reports: Arthritis Laterality Cases: Right: Total Hip Replacement Other Surgeries: Yes: No Previous Surgery, Skin Cancer Excision (SKIN CANCER REMOVAL ON NOSE) Amputation: No Fractures: Yes (BACK AND HIP) - *Social History Educational Level: Attended High School Smoking Status: Current every day smoker Tobacco Type: cigarettes # Packs/Day (cigarettes): 1 #Yrs smoked (if former smoker): 60 Alcohol Intake: never Substance Use Type: denies use *Occupational Status:: retired Housing: house *Travel in the last 8 weeks: None - Psychiatric History Expresses thoughts of harming self/others: None Suicide Plan Description: No Plan Family Hx:: No significant family history Review of Systems - *Neurologic Denies seizure-like activity Meds Home Medications Medication Instructions Recorded Confirmed Type aspirin 81 mg tablet,delayed 81 mg PO DAILY tab 12/24/17 01/22/19 History release budesonide-formoterol HFA 160 2 puff INHALATION BID 12/24/17 01/22/19 History mcg-4.5 mcg/actuation aerosol inhaler cholecalciferol (vitamin D3) 5,000 1,000 unit PO DIRECTED cap 12/24/17 01/22/19 History unit capsule clopidogrel 75 mg tablet 75 mg PO DAILY tab 12/24/17 01/22/19 History levothyroxine 75 mcg tablet 75 mcg PO DAILY tab 12/24/17 01/22/19 History ranitidine 150 mg tablet 150 mg PO QHS 12/24/17 01/22/19 History simvastatin 40 mg tablet 20 mg PO HS 12/24/17 01/22/19 History Benzonatate [Benzonatate 100mg 100 mg PO TIDP PRN 01/04/18 01/22/19 History cap] Escitalopram Oxalate [Lexapro] 10 mg PO DAILY 01/04/18 01/22/19 History Albuterol Sulfate [Albuterol 2.5 mg IH Q4HP PRN #60 neb 01/05/18 01/22/19 Rx Sulfate 2.5mg/0.5ml Neb] Potassium Chloride [K-Tab ER 10 10 meq PO BID 01/22/18 01/22/19 History mEq] Sacubitril/Valsartan [Entresto 49 49 mg PO BID 03/30/18 01/22/19 History mg-51 mg Tablet] Allergies Allergy/AdvReac Type Severity Reaction Status Date / Time hydrocodone [HYDROCODONE] Allergy Unknown Verified 01/22/19 03:48 morphine [MORPHINE] Allergy Unknown Verified 01/22/19 03:48 Exam Vital signs and Labs for Last 24 Hours: Temp Pulse Resp BP Pulse Ox 98.0 F 84 18 120/68 96 01/22/19 07:46 01/22/19 07:46 01/22/19 07:46 01/22/19 07:46 01/22/19 07:46 Laboratory Results - last 24 hr 01/22/19 03:49: Specimen Source Right brachial, O2 % neb at 6l, ABG pH 7.41, ABG pCO2 40.5, ABG pO2 176.9 H, ABG HCO3 25.0, ABG Total CO2 26.2, ABG O2 Saturation 99, ABG Base Excess 0.3, Michael Test Acceptable 01/22/19 04:05: WBC 7.0, RBC 4.30, Hgb 12.6, Hct 41.6, MCV 96.8, MCH 29.2, MCHC 30.2 L, RDW 15.6, Plt Count 222, MPV 7.8, Neut % (Auto) 65.3, Lymph % (Auto) 25.5, [place] % (Auto) 6.2, Eos % (Auto) 1.8, Baso % (Auto) 1.3, Neut # (Auto) 4.6, Lymph # (Auto) 1.8, [place] # (Auto) 0.4, Eos # (Auto) 0.1, Baso # (Auto) 0.1 01/22/19 04:05: Sodium 144, Potassium 3.5, Chloride 105, Carbon Dioxide 28, Anion Gap 14.5, BUN 18, Creatinine 0.58, Estimated Creat Clear 30, Estimated GFR 101, Est GFR ( Amer) 122, Glucose 99, Calcium 8.2 L, Total Bilirubin 0.3, AST 26, ALT 14, Alkaline Phosphatase 180 H, Troponin I < 0.02, Total Protein 6.6, Albumin 3.1 L, Globulin 3.5 H, Albumin/Globulin Ratio 0.9 L 01/22/19 04:05: Lactate 1.2 I & O for Last 24 hours: Intake & Output 01/19/19 01/20/19 01/21/19 01/22/19 23:59 23:59 23:59 23:59 Intake Total 388 / 388 Balance 388 / 388 Weight 36.287 kg
--- NOTE | 2019-01-22 08:24 | History & Physical Report ---
*Admission Date: 01/21/19 *Chief complaint: shortness of breath, COPD exacerbataion *History of present illness: 78 year old female presented to ER yesterday via EMS for increasing shortness of breath. This had been progressively getting worse over the past several days. Positive for cough producing white sputum. Negative for wheezing, fever, chills, fluid retention. PMH significant for COPD and continued tob use. Currently a pack of cigarettes will last about three days. Wears 2L NC continuously at home. She also reports recent hospitalization in November at [facility] for back surgery, no complications with that admission. [facility] History Medical History: Reports:: Asthma, Cancer (SKIN), Cardiomyopathy, Chronic Obstructive Pulmonary Disease (COPD), Coronary Artery Disease, Gastroesophageal Reflux Disease(GERD), Hyperlipidemia, Hypertension, Kidney Stones, MRSA Denies:: Diabetes Mellitus Type 1, Diabetes Mellitus Type 2 *Have you ever received a pneumonia vaccine?: Yes *Have you received a flu vaccine this season?: Yes Other Medical History: Reports: Arthritis Laterality Cases: Right: Total Hip Replacement Other Surgeries: Yes: No Previous Surgery, Skin Cancer Excision (SKIN CANCER REMOVAL ON NOSE) Amputation: No Fractures: Yes (BACK AND HIP) - *Social History Educational Level: Attended High School Smoking Status: Current every day smoker Tobacco Type: cigarettes # Packs/Day (cigarettes): 1 #Yrs smoked (if former smoker): 60 Alcohol Intake: never Substance Use Type: denies use *Occupational Status:: retired Housing: house *Travel in the last 8 weeks: None - Psychiatric History Expresses thoughts of harming self/others: None Suicide Plan Description: No Plan Family Hx:: No significant family history Review of Systems - Constitutional Reports fatigue, Reports weakness, Denies chills, Denies fever(s), Denies night sweats - *Cardiovascular Denies chest pain, Denies leg swelling, Denies rapid, pounding, or irregular heartbeat - *Respiratory Reports chest congestion, Reports cough, Reports shortness of breath, Denies wheezing - *Gastrointestinal Denies abdominal pain, Denies constipation, Denies nausea, Denies vomiting - *Neurologic Denies seizure-like activity - Psychiatric Reports anxiety Meds Home Medications Medication Instructions Recorded Confirmed Type aspirin 81 mg tablet,delayed 81 mg PO DAILY tab 12/24/17 01/22/19 History release budesonide-formoterol HFA 160 2 puff INHALATION BID 12/24/17 01/22/19 History mcg-4.5 mcg/actuation aerosol inhaler cholecalciferol (vitamin D3) 5,000 1,000 unit PO DIRECTED cap 12/24/17 01/22/19 History unit capsule clopidogrel 75 mg tablet 75 mg PO DAILY tab 12/24/17 01/22/19 History levothyroxine 75 mcg tablet 75 mcg PO DAILY tab 12/24/17 01/22/19 History ranitidine 150 mg tablet 150 mg PO QHS 12/24/17 01/22/19 History simvastatin 40 mg tablet 20 mg PO HS 12/24/17 01/22/19 History Benzonatate [Benzonatate 100mg 100 mg PO TIDP PRN 01/04/18 01/22/19 History cap] Escitalopram Oxalate [Lexapro] 10 mg PO DAILY 01/04/18 01/22/19 History Albuterol Sulfate [Albuterol 2.5 mg IH Q4HP PRN #60 neb 01/05/18 01/22/19 Rx Sulfate 2.5mg/0.5ml Neb] Potassium Chloride [K-Tab ER 10 10 meq PO BID 01/22/18 01/22/19 History mEq] Sacubitril/Valsartan [Entresto 49 49 mg PO BID 03/30/18 01/22/19 History mg-51 mg Tablet] Allergies Allergy/AdvReac Type Severity Reaction Status Date / Time hydrocodone [HYDROCODONE] Allergy Unknown Verified 01/22/19 03:48 morphine [MORPHINE] Allergy Unknown Verified 01/22/19 03:48 Exam Vital signs and Labs for Last 24 Hours: Temp Pulse Resp BP Pulse Ox 98.0 F 84 18 120/68 96 01/22/19 07:46 01/22/19 07:46 01/22/19 07:46 01/22/19 07:46 01/22/19 07:46 Laboratory Results - last 24 hr 01/22/19 03:49: Specimen Source Right brachial, O2 % neb at 6l, ABG pH 7.41, ABG pCO2 40.5, ABG pO2 176.9 H, ABG HCO3 25.0, ABG Total CO2 26.2, ABG O2 Saturation 99, ABG Base Excess 0.3, Michael Test Acceptable 01/22/19 04:05: WBC 7.0, RBC 4.30, Hgb 12.6, Hct 41.6, MCV 96.8, MCH 29.2, MCHC 30.2 L, RDW 15.6, Plt Count 222, MPV 7.8, Neut % (Auto) 65.3, Lymph % (Auto) 25.5, [place] % (Auto) 6.2, Eos % (Auto) 1.8, Baso % (Auto) 1.3, Neut # (Auto) 4.6, Lymph # (Auto) 1.8, [place] # (Auto) 0.4, Eos # (Auto) 0.1, Baso # (Auto) 0.1 01/22/19 04:05: Sodium 144, Potassium 3.5, Chloride 105, Carbon Dioxide 28, Anion Gap 14.5, BUN 18, Creatinine 0.58, Estimated Creat Clear 30, Estimated GFR 101, Est GFR ( Amer) 122, Glucose 99, Calcium 8.2 L, Total Bilirubin 0.3, AST 26, ALT 14, Alkaline Phosphatase 180 H, Troponin I < 0.02, Total Protein 6.6, Albumin 3.1 L, Globulin 3.5 H, Albumin/Globulin Ratio 0.9 L 01/22/19 04:05: Lactate 1.2 I & O for Last 24 hours: Intake & Output 01/19/19 01/20/19 01/21/19 01/22/19 23:59 23:59 23:59 23:59 Intake Total 388 / 388 Balance 388 / 388 Weight 80 lb - Constitutional no acute distress, thin, chronically ill appearing - *Routine HEENT Exam Head: Present: normocephalic, atraumatic Eye: Present: EOMI, PERRL ENT: Present: mucous membranes moist - *Routine Neck Exam Present: supple - *Routine Respiratory Exam Present: diminished air movement - *Routine Cardiovascular Exam Present: RRR, Normal S1, Normal S2. Absent: murmur - *Routine Abdominal Exam Present: soft, normoactive bowel sounds. Absent: tenderness - *Routine Extremities Exam Present: full ROM. Absent: edema - *Routine Skin Exam Present: dry, pallor. Absent: cyanosis - *Routine Neurological Exam Present: alert, oriented X3 - Routine Psychiatric Exam Present: normal affect Assessment and Plan (1) COPD exacerbation Current visit: No Status: Acute Category: Medical Code(s): J44.1 - Chronic obstructive pulmonary disease with (acute) exacerbation - Assessment and plan all Dx Assessment and Plan for all problems:: Patient will be monitored today, continue supportive treatments and encourage ambulation and use of incentive spirometer. IV furosemide and PO potassium given for right lower lobe infiltrate, continue IV antibiotics and steroids. Patient could discharge home later today on oral abx and steroids if appropriate, will round this afternoon and assess.
--- NOTE | 2019-01-22 16:23 | Discharge Summary ---
General - General Admission date:: 01/22/19 Discharge date: 01/22/19 HPI HPI: 78 year old female presented to ER yesterday via EMS for increasing shortness of breath. This had been progressively getting worse over the past several days. Positive for cough producing white sputum. Negative for wheezing, fever, chills, fluid retention. PMH significant for COPD and continued tob use. Currently a pack of cigarettes will last about three days. Wears 2L NC continuously at home. She also reports recent hospitalization in November at [facility] for back surgery, no complications with that admission. Hospital Course Hospital Course: Patient was admitted for observation of COPD exacerbation. She reports improvement of breathing throughout stay. Antibiotics, steroids, diuretic, and nebulizers given. She will be discharged home on azithromycin, augmentin and prednisone as well as instructed to use nebulizer every six hours. Follow up appointment next week with Salma Friday 1pm. Objective Vital signs: Temp Pulse Resp BP Pulse Ox 98.0 F 82 16 96/60 L 93 L 01/22/19 15:25 01/22/19 15:25 01/22/19 15:25 01/22/19 15:25 01/22/19 15:25 no acute distress, thin, chronically ill appearing - *Routine HEENT Exam Head: Present: normocephalic Eye: Present: EOMI, PERRL ENT: Present: mucous membranes moist - *Routine Respiratory Exam Present: diminished air movement. Absent: accessory muscle use - *Routine Cardiovascular Exam Present: RRR, Normal S1, Normal S2 - *Routine Abdominal Exam Present: soft, normoactive bowel sounds. Absent: tenderness - *Routine Extremities Exam Present: full ROM. Absent: cyanosis, edema - *Routine Skin Exam Present: intact, dry, pallor - *Routine Neurological Exam Present: alert, oriented X3 - Routine Psychiatric Exam Present: normal affect Results Labs on day of discharge: Labs from last 24 hours 01/22/19 01/22/19 01/22/19 04:05 04:05 04:05 WBC 7.0 RBC 4.30 Hgb 12.6 Hct 41.6 MCV 96.8 MCH 29.2 MCHC 30.2 L RDW 15.6 Plt Count 222 MPV 7.8 Neut % (Auto) 65.3 Lymph % (Auto) 25.5 [place] % (Auto) 6.2 Eos % (Auto) 1.8 Baso % (Auto) 1.3 Neut # (Auto) 4.6 Lymph # (Auto) 1.8 [place] # (Auto) 0.4 Eos # (Auto) 0.1 Baso # (Auto) 0.1 Specimen Source O2 % ABG pH ABG pCO2 ABG pO2 ABG HCO3 ABG Total CO2 ABG O2 Saturation ABG Base Excess Michael Test Sodium 144 Potassium 3.5 Chloride 105 Carbon Dioxide 28 Anion Gap 14.5 BUN 18 Creatinine 0.58 Estimated Creat Clear 30 Estimated GFR 101 Est GFR ( Amer) 122 Glucose 99 Lactate 1.2 Calcium 8.2 L Total Bilirubin 0.3 AST 26 ALT 14 Alkaline Phosphatase 180 H Troponin I < 0.02 Total Protein 6.6 Albumin 3.1 L Globulin 3.5 H Albumin/Globulin Ratio 0.9 L 01/22/19 03:49 WBC RBC Hgb Hct MCV MCH MCHC RDW Plt Count MPV Neut % (Auto) Lymph % (Auto) [place] % (Auto) Eos % (Auto) Baso % (Auto) Neut # (Auto) Lymph # (Auto) [place] # (Auto) Eos # (Auto) Baso # (Auto) Specimen Source Right brachial O2 % neb at 6l ABG pH 7.41 ABG pCO2 40.5 ABG pO2 176.9 H ABG HCO3 25.0 ABG Total CO2 26.2 ABG O2 Saturation 99 ABG Base Excess 0.3 Michael Test Acceptable Sodium Potassium Chloride Carbon Dioxide Anion Gap BUN Creatinine Estimated Creat Clear Estimated GFR Est GFR ( Amer) Glucose Lactate Calcium Total Bilirubin AST ALT Alkaline Phosphatase Troponin I Total Protein Albumin Globulin Albumin/Globulin Ratio DS: Diagnosis - Discharge Diagnosis (1) COPD exacerbation Status: Acute Discharge Plan - Patient Discharge Instructions ACTIVITY: Continue current activity DIET: continue same diet Patient Instructions: Nicotine Addiction, DI for Chronic Obstructive Pulmonary Disease, DI for Pneumonia -- Adult - Follow up Plan Follow up with: Adwoa Reddy APRN [Nurse Practitioner] - 01/22/19 1:00 pm Disposition: Home, Self-Skilled Nursing Medications: Home Medications Medication Instructions Recorded Confirmed Type aspirin 81 mg tablet,delayed 81 mg PO DAILY tab 12/24/17 01/22/19 History release budesonide-formoterol HFA 160 2 puff INHALATION BID 12/24/17 01/22/19 History mcg-4.5 mcg/actuation aerosol inhaler cholecalciferol (vitamin D3) 5,000 1,000 unit PO DIRECTED cap 12/24/17 01/22/19 History unit capsule clopidogrel 75 mg tablet 75 mg PO DAILY tab 12/24/17 01/22/19 History levothyroxine 75 mcg tablet 75 mcg PO DAILY tab 12/24/17 01/22/19 History simvastatin 40 mg tablet 40 mg PO HS 12/24/17 01/22/19 History Escitalopram Oxalate [Lexapro] 10 mg PO DAILY 01/04/18 01/22/19 History Albuterol Sulfate [Albuterol 2.5 mg IH Q4HP PRN #60 neb 01/05/18 01/22/19 Rx Sulfate 2.5mg/0.5ml Neb] Sacubitril/Valsartan [Entresto 49 1 tab PO BID 03/30/18 01/22/19 History mg-51 mg Tablet] Amoxicillin/Potassium Clav 1 tab PO BID #14 tab 01/22/19 Rx [Amox-Clav 875-125 mg Tablet] Azithromycin [Z-Dhaval 250mg Tab] 250 mg PO UD DOSE PK #6 tab 01/22/19 Rx Omeprazole 20 mg PO DAILY 01/22/19 01/22/19 History Umeclidinium [place] [Incruse 1 puff INHALATION DAILY 01/22/19 01/22/19 History Ellipta] predniSONE [Prednisone 20mg 20 mg PO BID 5 Days #10 tab 01/22/19 Rx Tab] Prescriptions/Medication Reconciliation: Continued aspirin 81 mg tablet,delayed release 81 mg PO DAILY tab clopidogrel 75 mg tablet 75 mg PO DAILY tab levothyroxine 75 mcg tablet 75 mcg PO DAILY tab simvastatin 40 mg tablet 40 mg PO HS budesonide-formoterol HFA 160 mcg-4.5 mcg/actuation aerosol inhaler 2 puff INHALATION BID cholecalciferol (vitamin D3) 5,000 unit capsule 1,000 unit PO DIRECTED cap Escitalopram Oxalate [Lexapro] 10 mg PO DAILY Albuterol Sulfate [Albuterol Sulfate 2.5mg/0.5ml Neb] 2.5 mg IH Q4HP PRN #60 neb PRN Reason: Shortness Of Breath Umeclidinium [place] [Incruse Ellipta] 1 puff INHALATION DAILY Sacubitril/Valsartan [Entresto 49 mg-51 mg Tablet] 1 tab PO BID Omeprazole 20 mg PO DAILY - Additional Information Additional Information: Please advise patient to use nebulizer every six hours friday, friday, friday, and friday. OK to use twice a day after that if symptoms are continuing to get better.
== END 2019-01-22 17:20 | disposition home or self-care (01) ==
LOC: 2ND 03:44 → ER 03:44 → 2ND 06:04
PROVIDERS: ADMIT Internal Medicine Adolescent Medicine; ATTEND Internal Medicine Adolescent Medicine
DX: Z85.828 Personal history of other malignant neoplasm of skin; J18.1 Lobar pneumonia, unspecified organism; Z88.8 Allergy status to other drugs, medicaments and biological substances; Z79.899 Other long term (current) drug therapy; Z88.6 Allergy status to analgesic agent; I44.7 Left bundle-branch block, unspecified; I25.10 Atherosclerotic heart disease of native coronary artery without angina pectoris; E78.5 Hyperlipidemia, unspecified; Z72.0 Tobacco use; F41.9 Anxiety disorder, unspecified; I10 Essential (primary) hypertension; J44.1 Chronic obstructive pulmonary disease with (acute) exacerbation; Z79.82 Long term (current) use of aspirin
CPT/HCPCS: 71010; 71045; 80053; 82803; 83605; 84484; 85025; 87040; 93005; 94640; 96365; 96375; 99285; G0378; J0456; J2543

== ENCOUNTER 2019-01-31 18:15 | Observation (INO) ==
--- NOTE | 2019-01-31 18:35 | Emergency Department Note ---
ED Disposition Clinical Impression: COPD (chronic obstructive pulmonary disease), CAD (coronary artery disease), Tobacco use disorder, CHF (congestive heart failure), Atypical chest pain Disposition: Still a Patient Condition on Discharge: Fair Referrals: Manuel Abdul MD [Primary Care Provider] - - Critical Care Critical Care Time: No Attestation: On 01/31/19, the high probability of a clinically significant, sudden or life threatening deterioration of the following system(s) required my full and direct attention, intervention and personal management. The time I documented below is in addition to time spent performing reported procedures but includes the following listed in this critical care notation. Medical Decision Making - Gabriel Inquiry Pt receiving controlled substance: No Gabriel was queried for this patient: No Vital Signs: 01/31/19 18:15 Temperature 98.3 F Temperature Source Oral Pulse Rate [Left Radial] 99 H Respiratory Rate 22 Blood Pressure [Right Arm] 154/83 H Blood Pressure Mean [Right Arm] 106 Blood Pressure Source [Right Arm] Automatic Cuff Blood Pressure Position [Right Arm] Sitting 02 Sat by Pulse Oximetry 97 Oxygen Delivery Method Nasal Cannula Oxygen Flow Rate (LPM) 2 - Lab Data Lab Results 01/31/19 18:27: WBC 9.1, RBC 3.95 L, Hgb 12.2, Hct 40.4, MCV 102.1 H, MCH 30.8, MCHC 30.2 L, RDW 15.9, Plt Count 186, MPV 8.3, Neut % (Auto) 79.5, Lymph % (Auto) 15.2, [place] % (Auto) 4.1, Eos % (Auto) 0.8, Baso % (Auto) 0.5, Neut # (Auto) 7.3, Lymph # (Auto) 1.4, [place] # (Auto) 0.4, Eos # (Auto) 0.1, Baso # (Auto) 0.0 01/31/19 18:27: Sodium 143, Potassium 3.4 L, Chloride 103, Carbon Dioxide 30, Anion Gap 13.4, BUN 23 H, Creatinine 0.51 L, Estimated Creat Clear 27, Estimated GFR 117, Est GFR ( Amer) 141, Glucose 88, Calcium 8.3 L, Troponin I < 0.02 01/31/19 18:27: B-Natriuretic Peptide 360 H Result diagrams: 01/31/19 18:27 01/31/19 18:27 Orders (Tests/Meds): ED MEDICATIONS Generic Name Dose Route Start Last Admin Trade Name Freq PRN Reason Stop Dose Admin Sodium Chloride 1,000 mls @ 500 mls/hr 01/31/19 18:45 Sod Chlor 0.9% 1000ml Bag IV 03/02/19 18:44 .Q2H ROSIO Nitroglycerin 0.5 gm 01/31/19 18:45 01/31/19 19:09 Nitroglycerin 1 Inch Oint Udp TD 03/02/19 18:44 0.5 gm Q8H ROSIO Administration ORDERS Category Date Time Status XR chest 2V Stat Exams 01/31/19 18:25 Taken - Radiology Data #1 Image(s): Chest Image Reviewed: Yes I reviewed the patient's radiology image Preliminary Findings: Normal/NAD X-ray report: post op changes including CABG vertebroplasty no acute findings. - ECG Data Tracing #1 Normal sinus rhythm 97/min baseline artifact LVH left bundle branch block unchanged from prior EKG dated 01/27/2019 and October 04, 2018 ECG initial impression date: 01/31/19 ECG initial impression time: 18:20 Medical Decision Narrative: The patient felt better after nitroglycerin crease of her pain radiating to the left upper back and symptoms radiating to extremity. [address] Flores agreed to admit the patient with echocardiogram in the morning, cardiology consultation and start her on [place] inhibitor for blood pressure control. The family was agreeable and they were considering alf placement. General Adult HPI - General Chief complaint: Chest Pain Stated complaint: chest pain Time Seen by Provider: 01/31/19 18:20 Mode of Arrival: EMS Limitations: No Limitations Description of Symptoms (Recalled from ER Triage Doc. by RN): EMS called out for pt c/o left arm pain stating that it started about 1 hour prior to EMS arrival. EMS states pt was really anxious upon their arrival, Pt c/o bilateral hand tingling and left arm pain - History of Present Illness HPI narrative: 8 years old white female with history of coronary artery disease status post CABG, COPD oxygen dependent, and a history of congestive heart failure who sarah nues to smoke. She was recently discharged from the hospital after a pneumonia admission. 1 hour ago she complained of chest tightness associated with left upper shoulder blade sharp pain radiating to the neck and sense of numbness radiating to the left upper extremity at rest. She denies hemoptysis palpitations nausea vomiting diarrhea. Onset (ago): hour(s) (1 hour prior to arrival) Location: chest Radiation: extremity, proximal Severity: moderate Severity scale (1-10): 6 Quality: sharp Consistency: constant Relieving factors: none Exacerbating factors: none Associated symptoms: shortness of breath Treatments prior to arrival: aspirin - Related Data Home Medications Medication Instructions Recorded Confirmed aspirin 81 mg tablet,delayed 81 mg PO DAILY tab 12/24/17 01/31/19 release budesonide-formoterol HFA 160 2 puff INHALATION BID 12/24/17 01/31/19 mcg-4.5 mcg/actuation aerosol inhaler cholecalciferol (vitamin D3) 5,000 1,000 unit PO DIRECTED cap 12/24/17 01/31/19 unit capsule clopidogrel 75 mg tablet 75 mg PO DAILY tab 12/24/17 01/31/19 levothyroxine 75 mcg tablet 75 mcg PO DAILY tab 12/24/17 01/31/19 simvastatin 40 mg tablet 40 mg PO HS 12/24/17 01/31/19 Escitalopram Oxalate [Lexapro] 10 mg PO DAILY 01/04/18 01/31/19 Sacubitril/Valsartan [Entresto 49 1 tab PO BID 03/30/18 01/31/19 mg-51 mg Tablet] Omeprazole 20 mg PO DAILY 01/22/19 01/31/19 Umeclidinium [place] [Incruse 1 puff INHALATION DAILY 01/22/19 01/31/19 Ellipta] Previous Rx's Medication Instructions Recorded Albuterol Sulfate [Albuterol 2.5 mg IH Q4HP PRN #60 neb 01/05/18 Sulfate 2.5mg/0.5ml Neb] Allergies Allergy/AdvReac Type Severity Reaction Status Date / Time hydrocodone [HYDROCODONE] Allergy Unknown Verified 01/22/19 03:48 morphine [MORPHINE] Allergy Unknown Verified 01/22/19 03:48 [facility] History - Hepatitis A Screen Drug use history?: No High risk sexual behaviors?: No History of sexually transmitted infection?: No Currently employed?: No Childcare worker?: No Do you have indoor plumbing?: Yes Do you have electricity?: Yes Attestation statement:: This patient has been screened for Hepatitis A risk factors. I have reviewed the patient's past medical history: Yes Medical History: Reports:: Asthma, Cancer (SKIN), Cardiomyopathy, Chronic Obstructive Pulmonary Disease (COPD), Coronary Artery Disease, Gastroesophageal Reflux Disease(GERD), Hyperlipidemia, Hypertension, Kidney Stones, MRSA Denies:: Diabetes Mellitus Type 1, Diabetes Mellitus Type 2 Other Medical History: Reports: Arthritis Laterality Cases: Right: Total Hip Replacement Other Surgeries: Yes: No Previous Surgery, Skin Cancer Excision (SKIN CANCER REMOVAL ON NOSE) Amputation: No Fractures: Yes (BACK AND HIP) - Social History Smoking Status: Current every day smoker Tobacco Type: cigarettes # Packs/Day (cigarettes): 1 #Yrs smoked (if former smoker): 60 Alcohol Intake: never Substance Use Type: denies use Occupational Status: retired Housing: house - Psychiatric History Expresses thoughts of harming self/others: None Suicide Plan Description: No Plan Family Hx:: No significant family history ROS Obtained: Yes All systems reviewed & no additional complaints Physical Exam - General General appearance: alert, in no apparent distress, cachectic - Head Head exam: atraumatic, normocephalic, normal inspection - Eye Eye exam: Present: normal appearance, PERRL, EOMI. Absent: scleral icterus, nystagmus - ENT ENT exam: Present: normal exam, normal oropharynx, mucous membranes dry, TM's normal bilaterally, normal external ear exam - Neck Neck exam: Present: normal inspection, full ROM, trachea midline, tenderness, other (She is kyphotic with left paraspinal muscle tenderness in the muscles surrounding the left shoulder blade.). Absent: meningismus, lymphadenopathy - Chest Chest inspection: Present: normal inspection, symmetric chest wall rise. Absent: tenderness - Respiratory Respiratory exam: Present: normal lung sounds bilaterally. Absent: respiratory distress, wheezes - Cardiovascular Cardiovascular exam: Present: regular rate, normal rhythm, normal heart sounds. Absent: JVD - Abdominal Exam Abdominal exam: Present: soft, normal bowel sounds, other (No pulsating abdominal masses, equal bilateral femoral pulsations. ). Absent: distention, tenderness, guarding, rebound, rigidity, Vora's sign, tenderness at McBurney's Point - External exam: Present: normal external exam - Extremities Exam Extremities exam: Present: normal inspection, full ROM, normal capillary refill. Absent: tenderness, pedal edema, joint swelling, calf tenderness - Back Exam Back exam: Present: normal inspection. Absent: tenderness, CVA tenderness (R), CVA tenderness (L) - Neurological Exam Neurological exam: Present: alert, oriented X3, CN II-XII intact, motor sensory deficit, reflexes normal - Psychiatric Psychiatric exam: Present: normal affect, normal mood - Skin Skin exam: Present: warm, dry, intact, normal color - Lymphatic Lymphatic Findings: no adenopathy
[2019-01-31 18:49] LABS: Basophils % 0.5 % (0.1-2.0); Eosinophils # 0.1 K/mm3 (0.0-0.4); Eosinophils % 0.8 % (0.1-12.0); Hematocrit 40.4 % (37.0-47.0); Hemoglobin 12.2 g/dL (12.2-16.2); Lymphocytes # 1.4 K/mm3 (0.7-4.5); Lymphocytes % 15.2 % (10-50); Mean Corpuscular HGB Conc 30.2 g/dL (31.8-35.4); Mean Corpuscular Volume 102.1 fl (81-99); Mean Platelet Volume 8.3 fl (7.4-10.4); Monocytes # 0.4 K/mm3 (0.1-1.0); Monocytes % 4.1 % (1.7-9.3); Neutrophils # 7.3 K/mm3 (1.8-7.8); Neutrophils % 79.5 % (37.0-80.0); Platelet Count 186 K/mm3 (142-424); Red Blood Count 3.95 M/mm3 (4.20-5.40); Red Cell Distribution Width 15.9 % (11.5-17.5); White Blood Count 9.1 K/mm3 (4.8-10.8)
[2019-01-31 19:06] LABS: Anion Gap 13.4 mEq/L (5-15); Blood Urea Nitrogen 23 mg/dL (7-18); Calcium 8.3 mg/dL (8.5-10.1); Carbon Dioxide 30 mmol/L (21.0-32.0); Chloride 103 mmol/L (98-107); Glucose 88 mg/dL (74-106); Sodium 143 mmol/L (136-145)
[2019-02-01 05:10] LABS: Basophils % 0.5 % (0.1-2.0); Eosinophils # 0.1 K/mm3 (0.0-0.4); Eosinophils % 1.2 % (0.1-12.0); Hematocrit 39.2 % (37.0-47.0); Hemoglobin 11.8 g/dL (12.2-16.2); Lymphocytes # 1.2 K/mm3 (0.7-4.5); Lymphocytes % 13.7 % (10-50); Mean Corpuscular Volume 102.1 fl (81-99); Mean Platelet Volume 8.4 fl (7.4-10.4); Monocytes # 0.4 K/mm3 (0.1-1.0); Monocytes % 4.2 % (1.7-9.3); Neutrophils % 80.5 % (37.0-80.0); Platelet Count 162 K/mm3 (142-424); Red Blood Count 3.84 M/mm3 (4.20-5.40); Red Cell Distribution Width 15.8 % (11.5-17.5); White Blood Count 8.8 K/mm3 (4.8-10.8)
[2019-02-01 05:25] LABS: Anion Gap 12.8 mEq/L (5-15); Calcium 7.8 mg/dL (8.5-10.1); Chol/HDL Ratio 2.1 (1-3.5)
--- NOTE | 2019-02-01 07:20 | Pharmacy Consult Notes ---
[facility] Pharmacy VTE Monitoring - Patient Demographics Admission date: 01/31/19 Report Date: 02/01/19 Time: 07:19 Allergies/Adverse Reactions: Patient Allergies hydrocodone [HYDROCODONE] Allergy (Unknown, Verified 01/22/19 03:48) morphine [MORPHINE] Allergy (Unknown, Verified 01/22/19 03:48) Height: 1.52 m Weight: 35.976 kg Patient Problems: Current Active Problems (Updated 01/31/19 @ 19:34 by Geoffrey Wheat MD) CAD (coronary artery disease) (Acute) Tobacco use disorder (Acute) CHF (congestive heart failure) (Acute) Atypical chest pain (Acute) Chronic obstructive lung disease (Acute) - VTE Risk Labs: VTE Related Lab Results Hgb 11.8 g/dL (12.2-16.2) L 02/01/19 04:55 Hct 39.2 % (37.0-47.0) 02/01/19 04:55 Plt Count 162 K/mm3 (142-424) 02/01/19 04:55 BUN 19 mg/dL (7-18) H 02/01/19 04:55 Creatinine 0.60 mg/dL (0.55-1.02) 02/01/19 04:55 Estimated Creat Clear 26 mL/min (50-200) 02/01/19 04:55 Was VTE Risk Assessment Performed: Yes VTE Score: 8 VTE Risk Level: Moderate Risk - Prophylaxis VTE Prophylaxis Ordered?: Yes Types of VTE Prophylaxis: Pharmacological Pharmacologic Type: Enoxaparin - VTE Diagnosis Confirmed Treatment or plan recommended: Continue Current Treatment
--- NOTE | 2019-02-01 07:23 | History & Physical Report ---
*Admission Date: 01/31/19 *Chief complaint: Chest pain *History of present illness: 78-year-old female with history of coronary artery disease, status post CABG presented to the emergency department after onset of squeezing chest tightness in the central chest that radiated into the left shoulder with associated numbness and tingling of the left hand. After symptoms had presented for an hour patient became so concerned she called EMS was brought to the emergency department. This morning in the hospital her daughter tells me she is been having episodes like this for the last month. Patient has missed multiple outpatient visits. Nonetheless she underwent evaluation in the emergency department with first set of enzymes being negative for acute CA. Patient was admitted for observation and serial EKG and enzymes. Overnight she ruled out for CA. She has been admitted with cardiology consultation. [facility] History I have reviewed the patient's past medical history: Yes Medical History: Reports:: Asthma, Cancer (SKIN), Cardiomyopathy, Chronic Obstructive Pulmonary Disease (COPD), Coronary Artery Disease, Gastroesophageal Reflux Disease(GERD), Hyperlipidemia, Hypertension, Kidney Stones, MRSA, Myocardial Infarction Denies:: Diabetes Mellitus Type 1, Diabetes Mellitus Type 2 *Have you ever received a pneumonia vaccine?: Yes *Have you received a flu vaccine this season?: Yes Other Medical History: Reports: Arthritis Laterality Cases: Right: Total Hip Replacement Other Surgeries: Yes: No Previous Surgery, CABG, Skin Cancer Excision (SKIN CANCER REMOVAL ON NOSE) Amputation: No Fractures: Yes (BACK AND HIP) - *Social History Educational Level: Attended High School Smoking Status: Current every day smoker Tobacco Type: cigarettes # Packs/Day (cigarettes): 1 #Yrs smoked (if former smoker): 60 Alcohol Intake: never Substance Use Type: denies use *Occupational Status:: retired Housing: house *Travel in the last 8 weeks: None - Psychiatric History Expresses thoughts of harming self/others: None Suicide Plan Description: No Plan Family Hx:: Coronary Artery Disease, Heart Attack Review of Systems - Review of Systems Review of systems:: pertinent systems reviewed and negative unless documented below Meds Home Medications Medication Instructions Recorded Confirmed Type aspirin 81 mg tablet,delayed 81 mg PO DAILY tab 12/24/17 02/01/19 History release budesonide-formoterol HFA 160 2 puff INHALATION BID 12/24/17 02/01/19 History mcg-4.5 mcg/actuation aerosol inhaler cholecalciferol (vitamin D3) 5,000 1,000 unit PO DIRECTED cap 12/24/17 02/01/19 History unit capsule clopidogrel 75 mg tablet 75 mg PO DAILY tab 12/24/17 02/01/19 History levothyroxine 75 mcg tablet 75 mcg PO DAILY tab 12/24/17 02/01/19 History simvastatin 40 mg tablet 40 mg PO HS 12/24/17 02/01/19 History Escitalopram Oxalate [Lexapro] 10 mg PO DAILY 01/04/18 02/01/19 History Albuterol Sulfate [Albuterol 2.5 mg IH Q4HP PRN #60 neb 01/05/18 02/01/19 Rx Sulfate 2.5mg/0.5ml Neb] Sacubitril/Valsartan [Entresto 49 1 tab PO BID 03/30/18 02/01/19 History mg-51 mg Tablet] Omeprazole 20 mg PO DAILY 01/22/19 02/01/19 History Umeclidinium [place] [Incruse 1 puff INHALATION DAILY 01/22/19 02/01/19 History Ellipta] Allergies Allergy/AdvReac Type Severity Reaction Status Date / Time hydrocodone [HYDROCODONE] Allergy Unknown Verified 01/22/19 03:48 morphine [MORPHINE] Allergy Unknown Verified 01/22/19 03:48 Exam Vital signs and Labs for Last 24 Hours: Temp Pulse Resp BP Pulse Ox 98.1 F 80 28 H 131/65 97 02/01/19 04:00 02/01/19 07:07 02/01/19 04:00 02/01/19 04:00 02/01/19 07:07 Laboratory Results - last 24 hr 01/31/19 18:27: WBC 9.1, RBC 3.95 L, Hgb 12.2, Hct 40.4, MCV 102.1 H, MCH 30.8, MCHC 30.2 L, RDW 15.9, Plt Count 186, MPV 8.3, Neut % (Auto) 79.5, Lymph % (Auto) 15.2, [place] % (Auto) 4.1, Eos % (Auto) 0.8, Baso % (Auto) 0.5, Neut # (Auto) 7.3, Lymph # (Auto) 1.4, [place] # (Auto) 0.4, Eos # (Auto) 0.1, Baso # (Auto) 0.0 01/31/19 18:27: Sodium 143, Potassium 3.4 L, Chloride 103, Carbon Dioxide 30, Anion Gap 13.4, BUN 23 H, Creatinine 0.51 L, Estimated Creat Clear 27, Estimated GFR 117, Est GFR ( Amer) 141, Glucose 88, Calcium 8.3 L, Troponin I < 0.02 01/31/19 18:27: B-Natriuretic Peptide 360 H 01/31/19 22:30: Troponin I 0.02 02/01/19 04:55: WBC 8.8, RBC 3.84 L, Hgb 11.8 L, Hct 39.2, MCV 102.1 H, MCH 30.6, MCHC 30.0 L, RDW 15.8, Plt Count 162, MPV 8.4, Neut % (Auto) 80.5 H, Lymph % (Auto) 13.7, [place] % (Auto) 4.2, Eos % (Auto) 1.2, Baso % (Auto) 0.5, Neut # (Auto) 7.0, Lymph # (Auto) 1.2, [place] # (Auto) 0.4, Eos # (Auto) 0.1, Baso # (Auto) 0.0 02/01/19 04:55: Sodium 144, Potassium 2.8 L*, Chloride 105, Carbon Dioxide 29, Anion Gap 12.8, BUN 19 H, Creatinine 0.60, Estimated Creat Clear 26, Estimated GFR 97, Est GFR ( Amer) 117, Glucose 120 H D, Calcium 7.8 L, Troponin I 0.04, Triglycerides 112, Cholesterol 177, LDL Cholesterol 70, VLDL Cholesterol 22, HDL Cholesterol 85, Cholesterol/HDL Ratio 2.1 I & O for Last 24 hours: Intake & Output 01/29/19 01/30/19 01/31/19 02/01/19 11:59 11:59 11:59 11:59 Intake Total 775 / 775 Balance 775 / 775 Weight 79 lb 5 oz - Constitutional no acute distress - *Routine HEENT Exam Head: Present: normocephalic Eye: Present: PERRL ENT: Present: mucous membranes moist - *Routine Neck Exam Present: supple, full ROM. Absent: JVD - *Routine Respiratory Exam Present: crackles, distant breath sounds - *Routine Cardiovascular Exam Present: RRR, Normal S1, Normal S2 - *Routine Extremities Exam Absent: edema Assessment and Plan (1) Unstable angina Current visit: Yes Status: Acute Category: Medical Code(s): I20.0 - Unstable angina (2) CAD (coronary artery disease) Current visit: Yes Status: Acute Category: Medical Code(s): I25.10 - Atherosclerotic heart disease of [place] coronary artery without angina pectoris (3) Chronic obstructive lung disease Current visit: Yes Status: Acute Qualifiers: Category: Medical Code(s): J44.9 - Chronic obstructive pulmonary disease, unspecified - Assessment and plan all Dx Assessment and Plan for all problems:: 1. Echocardiogram and cardiology consult this morning 2. Daughter has asked about short-term rehab placement but patient's insurance does not have any contracts with local nursing homes. They have opted for home health
--- NOTE | 2019-02-01 07:58 | Consult Report ---
History of Present Illness Consult date: 02/01/19 Requesting physician: Manuel Abdul Consult reason: chest pain Chief complaint: chest pain, SOA Additional Medical History:: 1. Coronary artery disease A. History of coronary bypass grafting in one vessel at least 15 years ago. B. Cardiac cath, 11/2012, nonischemic dilated cardiomyopathy. Patent [place] coronaries. Atretic APPLE with AV fistula into pulmonary circulation with "no clear communication between that graft and the LAD or any of it's branches." C. Cardiac cath, 12/2015, ANGIOGRAPHIC RESULTS: 1. The left main artery normal 2. The left anterior descending artery has mild mid vessel 30% nonflow limiting stenoses. There is no competitive flow from the left internal mammary artery 3. The circumflex artery is a large co-dominant vessel and has moderate mid vessel eccentric 40% nonflow limiting stenoses 4. The right coronary artery is a large codominant vessel and has proximal moderate mid vessel 50% nonflow limiting stenoses. Distally there are concentric sequential 40% nonflow limiting stenoses 5. The [facility] ventriculogram reveals reduced ejection fraction estimated at 35- 40% 6. The left ventricular end-diastolic pressure is elevated at 20 mmHg 7. The left internal mammary artery is proximally patent and is then subtotally occluded prior to its anastomosis on to the LAD IMPRESSION: 1. Moderate nonflow limiting coronary artery disease as described above 2. Reduced ejection fraction 3. Mildly elevated LVEDP 4. 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 Medical management for coronary artery disease 2. Freddy inhibitors carvedilol standard therapy for systolic heart failure 3. Risk factor modification 4. Dual antiplatelet therapy for one year because of non-STEMI 2. Tobacco use since age 22 A. COPD 3. Hypertension 4. Hyperlipidemia 5. LEFT bundle branch block by EKG 6. Hypothyroidism 7. Non-ischemic dilated Cardiomyopathy A. Echo, 01/2018, 1. Left atrium is mildly enlarged, left ventricle is normal size, mild concentric left ventricular hypertrophy, visually estimated ejection fraction approximately 35%, there is marked hypokinesis involving the mid to distal septum, anterior and anteroapical wall. 2. The right atrium and right ventricle are mildly enlarged with normal contractility. 3. The aortic valve is thickened and calcified, leaflet continue to display good mobility. 4. The mitral and tricuspid valve leaflets are minimally thickened 5. The pulmonic valve is poorly visualized. 6. No significant pericardial effusion noted. DOPPLER INTERROGATION: Doppler interrogation of the aortic, mitral and tricuspid valvular presence of mild mitral and tricuspid regurgitation, tricuspid regurgitant jet velocity is insufficient for calculation of the right ventricular systolic pressure, grade 1 diastolic dysfunction seen with tissue Doppler evidence of raised left atrial pressure. CONCLUSION: 1. Mildly enlarged left atrium, normal left ventricular size, mild concentric left ventricular hypertrophy, visually estimated ejection fraction of 35% with multiple segmental wall motion abnormality described above, grade 1 diastolic dysfunction seen with tissue Doppler evidence of raised left atrial pressure. 2. Mild mitral and tricuspid regurgitation 3. No significant pericardial effusion noted 8. S/p fall with right hip femur fracture, 10/2018, transferred to [facility] in [place], [place] for treatment 9. Nephrolithiasis, 10/2018 History of present illness: 78-year-old female with history of coronary artery disease, status post CABG presented to the emergency department after onset of squeezing chest tightness in the central chest that radiated into the left shoulder with associated numbness and tingling of the left hand. After symptoms had presented for an hour patient became so concerned she called EMS was brought to the emergency department. This morning in the hospital her daughter tells me she is been having episodes like this for the last month. Patient has missed multiple outpatient visits. Nonetheless she underwent evaluation in the emergency department with first set of enzymes being negative for acute MD. Patient was admitted for observation and serial EKG and enzymes. Overnight she ruled out for MD. She has been admitted with cardiology consultation. The above per Dr. Abdul Pt admits to exertional SOA and chest pain with minimal activity (walking with walker from one room to another in her house) that has usually improved with rest. Yesterday was the worst episode. Troponins have returned normal X 3. EKG is sinus with LAD and LBBB. Pt very focused on eating before any procedures. Will let her eat breakfast and plan to proceed with [facility] today. [facility] History Medical History: Reports:: Asthma, Cancer (SKIN), Cardiomyopathy, Chronic Obstructive Pulmonary Disease (COPD), Coronary Artery Disease, Gastroesophageal Reflux Disease(GERD), Hyperlipidemia, Hypertension, Kidney Stones, MRSA, Myocardial Infarction Denies:: Diabetes Mellitus Type 1, Diabetes Mellitus Type 2 *Have you ever received a pneumonia vaccine?: Yes *Have you received a flu vaccine this season?: Yes Other Medical History: Reports: Arthritis Laterality Cases: Right: Total Hip Replacement Other Surgeries: Yes: No Previous Surgery, CABG, Skin Cancer Excision (SKIN CANCER REMOVAL ON NOSE) Amputation: No Fractures: Yes (BACK AND HIP) - *Social History Educational Level: Attended High School Smoking Status: Current every day smoker Tobacco Type: cigarettes # Packs/Day (cigarettes): 1 #Yrs smoked (if former smoker): 60 Alcohol Intake: never Substance Use Type: denies use *Occupational Status:: retired Housing: house *Travel in the last 8 weeks: None - Psychiatric History Expresses thoughts of harming self/others: None Suicide Plan Description: No Plan Family Hx:: Coronary Artery Disease, Heart Attack Meds Home Medications Medication Instructions Recorded Confirmed Type aspirin 81 mg tablet,delayed 81 mg PO DAILY tab 12/24/17 02/01/19 History release budesonide-formoterol HFA 160 2 puff INHALATION BID 12/24/17 02/01/19 History mcg-4.5 mcg/actuation aerosol inhaler cholecalciferol (vitamin D3) 5,000 1,000 unit PO DIRECTED cap 12/24/17 02/01/19 History unit capsule clopidogrel 75 mg tablet 75 mg PO DAILY tab 12/24/17 02/01/19 History levothyroxine 75 mcg tablet 75 mcg PO DAILY tab 12/24/17 02/01/19 History simvastatin 40 mg tablet 40 mg PO HS 12/24/17 02/01/19 History Escitalopram Oxalate [Lexapro] 10 mg PO DAILY 01/04/18 02/01/19 History Albuterol Sulfate [Albuterol 2.5 mg IH Q4HP PRN #60 neb 01/05/18 02/01/19 Rx Sulfate 2.5mg/0.5ml Neb] Sacubitril/Valsartan [Entresto 49 1 tab PO BID 03/30/18 02/01/19 History mg-51 mg Tablet] Omeprazole 20 mg PO DAILY 01/22/19 02/01/19 History Umeclidinium [place] [Incruse 1 puff INHALATION DAILY 01/22/19 02/01/19 History Ellipta] Allergies Allergy/AdvReac Type Severity Reaction Status Date / Time hydrocodone [HYDROCODONE] Allergy Unknown Verified 01/22/19 03:48 morphine [MORPHINE] Allergy Unknown Verified 01/22/19 03:48 Review of Systems - *Cardiovascular Reports chest pain, Reports shortness of breath with activity - *Respiratory Reports shortness of breath, Reports shortness of breath with activity, Denies cough - *Gastrointestinal Denies abdominal pain, Denies change in stools, Denies vomiting - *Genitourinary Denies blood in urine - *Musculoskeletal Denies joint pain, Denies back pain - *Neurologic Denies dizziness, Denies weakness Exam Vital signs and Labs for Last 24 Hours: Temp Pulse Resp BP Pulse Ox 98.1 F 80 28 H 131/65 97 02/01/19 04:00 02/01/19 07:07 02/01/19 04:00 02/01/19 04:00 02/01/19 07:07 Laboratory Results - last 24 hr 01/31/19 18:27: WBC 9.1, RBC 3.95 L, Hgb 12.2, Hct 40.4, MCV 102.1 H, MCH 30.8, MCHC 30.2 L, RDW 15.9, Plt Count 186, MPV 8.3, Neut % (Auto) 79.5, Lymph % (Auto) 15.2, [place] % (Auto) 4.1, Eos % (Auto) 0.8, Baso % (Auto) 0.5, Neut # (Auto) 7.3, Lymph # (Auto) 1.4, [place] # (Auto) 0.4, Eos # (Auto) 0.1, Baso # (Auto) 0.0 01/31/19 18:27: Sodium 143, Potassium 3.4 L, Chloride 103, Carbon Dioxide 30, Anion Gap 13.4, BUN 23 H, Creatinine 0.51 L, Estimated Creat Clear 27, Estimated GFR 117, Est GFR ( Amer) 141, Glucose 88, Calcium 8.3 L, Troponin I < 0.02 01/31/19 18:27: B-Natriuretic Peptide 360 H 01/31/19 22:30: Troponin I 0.02 02/01/19 04:55: WBC 8.8, RBC 3.84 L, Hgb 11.8 L, Hct 39.2, MCV 102.1 H, MCH 30.6, MCHC 30.0 L, RDW 15.8, Plt Count 162, MPV 8.4, Neut % (Auto) 80.5 H, Lymph % (Auto) 13.7, [place] % (Auto) 4.2, Eos % (Auto) 1.2, Baso % (Auto) 0.5, Neut # (Auto) 7.0, Lymph # (Auto) 1.2, [place] # (Auto) 0.4, Eos # (Auto) 0.1, Baso # (Auto) 0.0 02/01/19 04:55: Sodium 144, Potassium 2.8 L*, Chloride 105, Carbon Dioxide 29, Anion Gap 12.8, BUN 19 H, Creatinine 0.60, Estimated Creat Clear 26, Estimated GFR 97, Est GFR ( Amer) 117, Glucose 120 H D, Calcium 7.8 L, Troponin I 0.04, Triglycerides 112, Cholesterol 177, LDL Cholesterol 70, VLDL Cholesterol 22, HDL Cholesterol 85, Cholesterol/HDL Ratio 2.1 I & O for Last 24 hours: Intake & Output 01/29/19 01/30/19 01/31/19 02/01/19 11:59 11:59 11:59 11:59 Intake Total 775 / 775 Balance 775 / 775 Weight 79 lb 5 oz - *Routine HEENT Exam Head: Present: normocephalic Eye: Present: EOMI, PERRL ENT: Present: mucous membranes moist - *Routine Neck Exam Present: supple. Absent: JVD, carotid bruit - *Routine Respiratory Exam Present: CTA bilaterally. Absent: accessory muscle use, rales, rhonchi, wheezes - *Routine Cardiovascular Exam Present: RRR. Absent: murmur, gallop, rubs - *Routine Abdominal Exam Present: soft. Absent: tenderness, distended, guarding - *Routine Extremities Exam Absent: edema, calf tenderness - *Routine Neurological Exam Present: alert, oriented X3, moving all extremities Assessment and Plan (1) Unstable angina Current visit: Yes Status: Acute Category: Medical Code(s): I20.0 - Unstable angina (2) CAD (coronary artery disease) Current visit: Yes Status: Acute Category: Medical Code(s): I25.10 - Atherosclerotic heart disease of [place] coronary artery without angina pectoris (3) Chronic obstructive lung disease Current visit: Yes Status: Acute Qualifiers: Category: Medical Code(s): J44.9 - Chronic obstructive pulmonary disease, unspecified - Assessment and plan all Dx Assessment and Plan for all problems:: 1. One month of recurrent Chest pain with radiation to neck and left arm that resolved with SL NTG yesterday, consistent with unstable angina pectoris in a patient with CABG about 20 yrs ago. Moderate CAD with recommendations for medical management in 2016. Recommend proceeding with LHC with grafts today. Continue ASA and plavix. 2. Preliminary echo this AM shows continued reduced EF of 35%. Pt has been on entresto for since 2016 but I don't see any record of beta chester therapy. Will start low dose coreg therapy to see if cardiomyopathy will improve and for angina treatment as well. 3. Further recommendations to follow pending above results.
--- NOTE | 2019-02-01 21:08 | Cardiology Report ---
PROCEDURE: 2-D M-mode and color Doppler study INDICATIONS FOR THE TEST: Chest pain X COPDX Heart Murmur Tobacco SmokingX Palpitations Fatigue Syncope Edema HypertensionXDiabetes Mellitus Rheumatic Fever SOB MAR Obesity HyperlipidemiaX Family History HD Additional History CAD,CM,CABG,HOME O2 PATIENT INFORMATION HEIGHT: 60 WEIGHT:80 GENDER: Female B/P:120/68 2-D/M-MODE INTERPRETATION: 2-D MEASUREMENTS OBSERVED VALUES IN CMS Right Ventricular Dimension (RVDd) 1.4 Interventricular Septum (Thickness)(IVsd) .7 Left Ventricular Internal Dimensions(LVIDd) 5.0 Left Ventricular Posterior Wall (Thickness)(LVPWd) .9 Aortic Root 3.0 Aortic Cusp Separation 1.2 Left Atrial Dimensions (LAD) 3.4 2D 1. Left atrium is moderately enlarged, left ventricle is normal size, mild concentric left ventricular hypertrophy, there is severely reduced left ventricular systolic function, visually estimated ejection fraction approximately 25%, there is marked hypokinesis involving mid to distal septum, anterior, apex and anterolateral apical wall. There is abnormal septal motion. 2. The right atrium and the ventricular normal size and contractility. 3. The aortic valve is thickened and calcified leaflet continue to display mobility. 4. The mitral and tricuspid valve leaflets are minimally thickened 5. The pulmonic valve is poorly present. 6. No significant pericardial effusion noted. DOPPLER INTERROGATION: Doppler interrogation of the aortic, mitral and tricuspid valvular presence of trace aortic, mild mitral and tricuspid regurgitation, tricuspid regurgitation jet velocity is inadequate for calculation of the right ventricular systolic pressure, grade 1 diastolic dysfunction seen with tissue Doppler evidence of raised left atrial pressure. Inferior vena cava is not well visualized. CONCLUSION: 1. Moderately enlarged left atrium, normal left ventricular size, mild concentric left ventricular hypertrophy, there is severely reduced left ventricular systolic function, visually estimated ejection fraction of 25% with segmental wall motion abnormality described above, grade 1 diastolic dysfunction seen with tissue Doppler evidence of raised left atrial pressure. 2. Thickened and calcified aortic valve without aortic stenosis, there is trace aortic insufficiency. 3. Mild mitral and tricuspid regurgitation. 4. No significant pericardial effusion noted.
[2019-02-02 06:25] LABS: Basophils # 0.1 K/mm3 (0-0.2); Basophils % 0.6 % (0.1-2.0); Eosinophils # 0.1 K/mm3 (0.0-0.4); Eosinophils % 1.2 % (0.1-12.0); Hematocrit 38.7 % (37.0-47.0); Hemoglobin 11.7 g/dL (12.2-16.2); Lymphocytes # 1.2 K/mm3 (0.7-4.5); Lymphocytes % 13.7 % (10-50); Mean Corpuscular HGB Conc 30.4 g/dL (31.8-35.4); Mean Corpuscular Volume 102.9 fl (81-99); Mean Platelet Volume 8.8 fl (7.4-10.4); Monocytes # 0.3 K/mm3 (0.1-1.0); Monocytes % 3.5 % (1.7-9.3); Neutrophils # 7.2 K/mm3 (1.8-7.8); Neutrophils % 81.1 % (37.0-80.0); Platelet Count 157 K/mm3 (142-424); Red Blood Count 3.76 M/mm3 (4.20-5.40); Red Cell Distribution Width 15.7 % (11.5-17.5); White Blood Count 8.8 K/mm3 (4.8-10.8)
[2019-02-02 06:31] LABS: Anion Gap 12.2 mEq/L (5-15); Calcium 7.8 mg/dL (8.5-10.1)
--- NOTE | 2019-02-02 07:08 | Discharge Summary ---
General - General Admission date:: 01/31/19 Discharge date: 02/02/19 HPI HPI: 78-year-old female with history of coronary artery disease, status post CABG presented to the emergency department after onset of squeezing chest tightness in the central chest that radiated into the left shoulder with associated numbness and tingling of the left hand. After symptoms had presented for an hour patient became so concerned she called EMS was brought to the emergency department. This morning in the hospital her daughter tells me she is been having episodes like this for the last month. Patient has missed multiple outpatient visits. Nonetheless she underwent evaluation in the emergency department with first set of enzymes being negative for acute MS. Patient was admitted for observation and serial EKG and enzymes. Overnight she ruled out for MS. She has been admitted with cardiology consultation. Hospital Course Hospital Course: Patient was admitted and ruled out for MS. She underwent cardiac cathet erization on the morning of February 01 which revealed cardiomyopathy and echocardiogram confirmed ejection fraction of 25%. Medication adjustments were made per cardiology recommendations and from this point on they recommended medical management only. After the procedure there was a lot of confusion as the patient and her family were frequently changing her mind about their wishes for post discharge care. Ultimately patient chose discharge to home as opposed to [facility] facility. On the morning of February 02 patient was discharged home. She will follow-up in the office in 1 week. Home health has been arranged for nursing, vital signs monitoring, PT, OT Objective Vital signs: Temp Pulse Resp BP Pulse Ox 98.8 F 78 24 122/67 97 02/02/19 04:00 02/02/19 06:07 02/02/19 04:00 02/02/19 04:00 02/02/19 06:07 Results Labs on day of discharge: Labs from last 24 hours 02/02/19 02/02/19 05:55 05:55 WBC 8.8 RBC 3.76 L Hgb 11.7 L Hct 38.7 MCV 102.9 H MCH 31.2 MCHC 30.4 L RDW 15.7 Plt Count 157 MPV 8.8 Neut % (Auto) 81.1 H Lymph % (Auto) 13.7 [place] % (Auto) 3.5 Eos % (Auto) 1.2 Baso % (Auto) 0.6 Neut # (Auto) 7.2 Lymph # (Auto) 1.2 [place] # (Auto) 0.3 Eos # (Auto) 0.1 Baso # (Auto) 0.1 Sodium 142 Potassium 4.2 D Chloride 108 H Carbon Dioxide 26 Anion Gap 12.2 BUN 14 D Creatinine 0.52 L Estimated Creat Clear 26 Estimated GFR 114 Est GFR ( Amer) 138 Glucose 107 H Calcium 7.8 L DS: Diagnosis - Discharge Diagnosis (1) Unstable angina Status: Acute (2) CAD (coronary artery disease) Status: Acute (3) Chronic obstructive lung disease Status: Acute Discharge Plan - Patient Discharge Instructions ACTIVITY: Continue current activity DIET: continue same diet Patient Instructions: Heart Failure, Coronary Artery Disease, Angina, Echocardiogram, Heart-Healthy Diet, DI for Heart Failure, DI for Angina, DI for Cardiac Catheterization, DI for Surgical Site Infection, DI for Coronary Artery Disease - Follow up Plan Follow up with: Manuel Abdul MD [Primary Care Provider] - 1 week Disposition: Home, Self-Custodial Medications: Home Medications Medication Instructions Recorded Confirmed Type aspirin 81 mg tablet,delayed 81 mg PO DAILY tab 12/24/17 02/01/19 History release budesonide-formoterol HFA 160 2 puff INHALATION BID 12/24/17 02/01/19 History mcg-4.5 mcg/actuation aerosol inhaler cholecalciferol (vitamin D3) 5,000 2,000 unit PO DIRECTED cap 12/24/17 02/01/19 History unit capsule clopidogrel 75 mg tablet 75 mg PO DAILY tab 12/24/17 02/01/19 History levothyroxine 75 mcg tablet 75 mcg PO DAILY tab 12/24/17 02/01/19 History simvastatin 40 mg tablet 40 mg PO HS 12/24/17 02/01/19 History Escitalopram Oxalate [Lexapro] 10 mg PO HS 01/04/18 02/01/19 History Albuterol Sulfate [Albuterol 2.5 mg IH Q4HP PRN #60 neb 01/05/18 02/01/19 Rx Sulfate 2.5mg/0.5ml Neb] Sacubitril/Valsartan [Entresto 49 1 tab PO BID 03/30/18 02/01/19 History mg-51 mg Tablet] Omeprazole 20 mg PO DAILY 01/22/19 02/01/19 History Umeclidinium [place] [Incruse 1 puff INHALATION DAILY 01/22/19 02/01/19 History Ellipta] Albuterol Sulfate [Albuterol HFA 1 - 2 puffs IH Q4-6H PRN 02/01/19 02/01/19 History Inhaler] Carvedilol [Coreg 3.125mg Tablet] 3.125 mg PO BID #60 tab 02/02/19 Rx Isosorbide Mononitrate [Imdur 30mg 30 mg PO DAILY #30 tab 02/02/19 Rx ER tablet] Prescriptions/Medication Reconciliation: New Carvedilol [Coreg 3.125mg Tablet] 3.125 mg PO BID #60 tab Isosorbide Mononitrate [Imdur 30mg ER tablet] 30 mg PO DAILY #30 tab Continued aspirin 81 mg tablet,delayed release 81 mg PO DAILY tab clopidogrel 75 mg tablet 75 mg PO DAILY tab levothyroxine 75 mcg tablet 75 mcg PO DAILY tab simvastatin 40 mg tablet 40 mg PO HS budesonide-formoterol HFA 160 mcg-4.5 mcg/actuation aerosol inhaler 2 puff INHALATION BID cholecalciferol (vitamin D3) 5,000 unit capsule 2,000 unit PO DIRECTED cap Escitalopram Oxalate [Lexapro] 10 mg PO HS Albuterol Sulfate [Albuterol Sulfate 2.5mg/0.5ml Neb] 2.5 mg IH Q4HP PRN #60 neb PRN Reason: Shortness Of Breath Umeclidinium [place] [Incruse Ellipta] 1 puff INHALATION DAILY Albuterol Sulfate [Albuterol HFA Inhaler] 1 - 2 puffs IH Q4-6H PRN PRN Reason: SHORTNESS OF AIR/WHEEZING Sacubitril/Valsartan [Entresto 49 mg-51 mg Tablet] 1 tab PO BID Omeprazole 20 mg PO DAILY
== END 2019-02-02 09:27 | disposition home or self-care (01) ==
LOC: 2ND 18:15 → ER 18:15 → 2ND 20:27
PROVIDERS: ADMIT Internal Medicine Adolescent Medicine; ATTEND Family Medicine
DX: I10 Essential (primary) hypertension; E78.5 Hyperlipidemia, unspecified; Z88.6 Allergy status to analgesic agent; Z79.899 Other long term (current) drug therapy; I44.7 Left bundle-branch block, unspecified; I25.110 Atherosclerotic heart disease of native coronary artery with unstable angina pectoris; J44.9 Chronic obstructive pulmonary disease, unspecified; E03.9 Hypothyroidism, unspecified; I50.9 Heart failure, unspecified; Z79.82 Long term (current) use of aspirin; Z72.0 Tobacco use
CPT/HCPCS: 36415; 71020; 71046; 80048; 80061; 83880; 84484; 85025; 93005; 93306; 93458; 94640; 94760; 94761; 96365; 99152; 99284; C1725; C1769; G0378; J1644; Q9967

== ENCOUNTER 2019-02-02 19:36 | Inpatient (IN) ==
[2019-02-02 20:01] LABS: Basophils # 0.1 K/mm3 (0-0.2); Basophils % 0.9 % (0.1-2.0); Eosinophils # 0.1 K/mm3 (0.0-0.4); Eosinophils % 1.3 % (0.1-12.0); Hematocrit 41.1 % (37.0-47.0); Hemoglobin 12.8 g/dL (12.2-16.2); Lymphocytes # 1.6 K/mm3 (0.7-4.5); Lymphocytes % 14.9 % (10-50); Mean Corpuscular HGB Conc 31.1 g/dL (31.8-35.4); Mean Corpuscular Volume 102.2 fl (81-99); Mean Platelet Volume 8.3 fl (7.4-10.4); Monocytes # 0.4 K/mm3 (0.1-1.0); Monocytes % 3.5 % (1.7-9.3); Neutrophils # 8.2 K/mm3 (1.8-7.8); Neutrophils % 79.4 % (37.0-80.0); Platelet Count 178 K/mm3 (142-424); Red Blood Count 4.03 M/mm3 (4.20-5.40); Red Cell Distribution Width 15.8 % (11.5-17.5); White Blood Count 10.4 K/mm3 (4.8-10.8)
--- NOTE | 2019-02-02 20:07 | Emergency Department Note ---
ED Disposition Clinical Impression: Acute exacerbation of chronic obstructive airways disease, LBBB (left bundle branch block) Hip fracture, intertrochanteric Qualifiers: Encounter type: initial encounter Fracture type: closed Fracture alignment: displaced Laterality: left Qualified Code(s): S72.142A - Displaced intertrochanteric fracture of left femur, initial encounter for closed fracture Disposition: Admitted As Inpatient Condition on Discharge: Serious - Critical Care Critical Care Time: No Attestation: On 02/02/19, the high probability of a clinically significant, sudden or life threatening deterioration of the following system(s) required my full and direct attention, intervention and personal management. The time I documented below is in addition to time spent performing reported procedures but includes the following listed in this critical care notation. Medical Decision Making - Medical Records Medical records reviewed: Yes: I reviewed the patient's medical records. - Gabriel Inquiry Pt receiving controlled substance: No Vital Signs: 02/02/19 19:37 02/02/19 19:50 02/02/19 20:43 Temperature 97.9 F Temperature Source Oral Pulse Rate [Right Brachial] 98 H 105 H 107 H Respiratory Rate 22 20 18 Blood Pressure [Right Arm] 157/90 H 157/96 H 106/61 L Blood Pressure Mean [Right Arm] 112 116 76 Blood Pressure Source [Right Arm] Automatic Cuff Automatic Cuff Automatic Cuff Blood Pressure Position [Right Arm] Sitting Sitting Sitting 02 Sat by Pulse Oximetry 98 97 97 Oxygen Delivery Method Nasal Cannula Room Air Nasal Cannula Oxygen Flow Rate (LPM) 2 2 02/02/19 22:13 Temperature Temperature Source Pulse Rate [Right Brachial] 111 H Respiratory Rate 22 Blood Pressure [Right Arm] 114/69 Blood Pressure Mean [Right Arm] 84 Blood Pressure Source [Right Arm] Automatic Cuff Blood Pressure Position [Right Arm] Sitting 02 Sat by Pulse Oximetry 99 Oxygen Delivery Method Room Air Oxygen Flow Rate (LPM) - Lab Data Lab results reviewed: Yes: I reviewed the patient's lab results. Lab Results 02/02/19 18:53: WBC 10.4, RBC 4.03 L, Hgb 12.8, Hct 41.1, MCV 102.2 H, MCH 31.8 H, MCHC 31.1 L, RDW 15.8, Plt Count 178, MPV 8.3, Neut % (Auto) 79.4, Lymph % (Auto) 14.9, [place] % (Auto) 3.5, Eos % (Auto) 1.3, Baso % (Auto) 0.9, Neut # (Auto) 8.2 H, Lymph # (Auto) 1.6, [place] # (Auto) 0.4, Eos # (Auto) 0.1, Baso # (Auto) 0.1 02/02/19 18:53: Sodium 140, Potassium 4.3, Chloride 104, Carbon Dioxide 26, Anion Gap 14.3, BUN 16, Creatinine 0.52 L, Estimated Creat Clear 26, Estimated GFR 114, Est GFR ( Amer) 138, Glucose 108 H, Calcium 8.1 L, Total Bilirubin 0.5, AST 47 H, ALT 23, Alkaline Phosphatase 134 H, Total Creatine Kinase 289 H, Troponin I < 0.02, Total Protein 6.3 L, Albumin 2.9 L, Globulin 3.4 H, Albumin/Globulin Ratio 0.9 L Result diagrams: 02/02/19 18:53 02/02/19 18:53 Orders (Tests/Meds): ED MEDICATIONS Discontinued Medications Generic Name Dose Route Start Last Admin Trade Name Freq PRN Reason Stop Dose Admin Ketorolac Tromethamine 15 mg 02/02/19 22:31 02/02/19 22:35 Toradol 30mg/Ml Vial IV 02/02/19 22:32 15 mg ONCE ONE Administration Morphine Sulfate 2 mg 02/02/19 19:54 02/02/19 19:55 Morphine 2mg/Ml Syringe IV 02/02/19 19:55 2 mg ONCE ONE Administration Ondansetron HCl 4 mg 02/02/19 19:54 02/02/19 19:55 Zofran 4mg/2ml Vial IV 02/02/19 19:55 4 mg ONCE ONE Administration ORDERS Category Date Time Status CT cervical spine wo con Stat Cat Scan 02/02/19 19:[address] head/brain wo con Stat Cat Scan 02/02/19 19:51 Taken XR chest AP Stat Exams 02/02/19 19:46 Taken XR elbow LT min 3V Stat Exams 02/02/19 19:46 Taken XR femur LT 2V Stat Exams 02/02/19 19:51 Taken XR hip LT 2-3V w/pelvis Stat Exams 02/02/19 19:46 Taken XR knee LT 3V Stat Exams 02/02/19 19:51 Taken XR tibia fibula LT 2V Stat Exams 02/02/19 19:51 Taken UA [Urinalysis and Microscopic] Stat Lab 02/02/19 19:53 Received ECG Request by /Irma Stat Y 02/02/19 19:45 Ordered - Radiology Data #1 Image(s): Chest, Elbow, Pelvis, Hip, Femur, Knee, Tib/Fib Image Reviewed: Yes I reviewed the patient's radiology image Preliminary Findings: Abnormal (hip fx seen ) - CT Data CT Scan: Head, C-Spine Time Received: 23:[address] Reviewed: Yes: I have viewed the radiologist's interpretation Preliminary Findings: No Fracture Seen - ECG Data Tracing #1 I reviewed this ECG and interpreted as documented below: Arrhythmias present: sinus tach Ischemic changes: non-specific ST-T wave changes Conduction abnormalities present: LBBB ECG compared to prior tracings: there are no significant changes - Physician Consults Physician Consulted: cinthia Reason -: Admission Additional Consult: mei Reason -: Pt condition Fall HPI - General Chief Complaint: Fall Stated Complaint: Fall Time Seen by Provider: 02/02/19 20:00 Mode of Arrival: EMS Source of Information: Patient, EMS, Medical Record Limitations: Physical Limitations Description of Symptoms (Recalled from ER Triage Doc. by RN): Pt was just dc from the hospital today, was still weak and fell at home hurting her left arm and hip. Denies any LOC or being down for a long time. Denies any other injuries. - History of Present Illness HPI Narrative: recent hospital d/c with neg card cath and tripped tonight at home with injury to lt hip MD complaint: fall Onset (ago): hour(s) Fall from: standing Fall witnessed: no Place fall occurred: home Loss of consciousness: none Prolonged down time: no Context: tripped/slipped Location of injury: head, neck Location of injury - extremities: Left: elbow, knee, lower leg Severity: moderate Associated symptoms (after fall): denies - Related Data Home Medications Medication Instructions Recorded Confirmed aspirin 81 mg tablet,delayed 81 mg PO DAILY tab 12/24/17 02/02/19 release budesonide-formoterol HFA 160 2 puff INHALATION BID 12/24/17 02/02/19 mcg-4.5 mcg/actuation aerosol inhaler cholecalciferol (vitamin D3) 5,000 2,000 unit PO DIRECTED cap 12/24/17 02/02/19 unit capsule clopidogrel 75 mg tablet 75 mg PO DAILY tab 12/24/17 02/02/19 levothyroxine 75 mcg tablet 75 mcg PO DAILY tab 12/24/17 02/02/19 simvastatin 40 mg tablet 40 mg PO HS 12/24/17 02/02/19 Escitalopram Oxalate [Lexapro] 10 mg PO HS 01/04/18 02/02/19 Sacubitril/Valsartan [Entresto 49 1 tab PO BID 03/30/18 02/02/19 mg-51 mg Tablet] Omeprazole 20 mg PO DAILY 01/22/19 02/02/19 Umeclidinium [place] [Incruse 1 puff INHALATION DAILY 01/22/19 02/02/19 Ellipta] Albuterol Sulfate [Albuterol HFA 1 - 2 puffs IH Q4-6H PRN 02/01/19 02/02/19 Inhaler] Carvedilol [Coreg 3.125mg Tablet] 3.125 mg PO BID 02/02/19 02/02/19 Isosorbide Mononitrate [Imdur 30mg 30 mg PO DAILY 02/02/19 02/02/19 ER tablet] Previous Rx's Medication Instructions Recorded Albuterol Sulfate [Albuterol 2.5 mg IH Q4HP PRN #60 neb 01/05/18 Sulfate 2.5mg/0.5ml Neb] Allergies Allergy/AdvReac Type Severity Reaction Status Date / Time hydrocodone [HYDROCODONE] Allergy Unknown Verified 01/22/19 03:48 [facility] History - Hepatitis A Screen Drug use history?: No High risk sexual behaviors?: No History of sexually transmitted infection?: No Currently employed?: No Childcare worker?: No Do you have indoor plumbing?: Yes Do you have electricity?: Yes Attestation statement:: This patient has been screened for Hepatitis A risk factors. I have reviewed the patient's past medical history: Yes Medical History: Reports:: Asthma, Cancer (SKIN), Cardiomyopathy, Chronic Obstructive Pulmonary Disease (COPD), Coronary Artery Disease, Gastroesophageal Reflux Disease(GERD), Hyperlipidemia, Hypertension, Kidney Stones, MRSA, Myocardial Infarction Denies:: Diabetes Mellitus Type 1, Diabetes Mellitus Type 2 Other Medical History: Reports: Arthritis Laterality Cases: Right: Total Hip Replacement Other Surgeries: Yes: No Previous Surgery, CABG, Skin Cancer Excision (SKIN CANCER REMOVAL ON NOSE) Amputation: No Fractures: Yes (BACK AND HIP) - Social History Smoking Status: Current every day smoker Tobacco Type: cigarettes # Packs/Day (cigarettes): 1 #Yrs smoked (if former smoker): 60 Alcohol Intake: never Substance Use Type: denies use Occupational Status: retired Housing: house Family Hx:: Coronary Artery Disease, Heart Attack ROS Obtained: Yes All systems reviewed & no additional complaints - Constitutional Constitutional: Denies fever(s) - Eyes Eyes: Denies change in vision - ENT Ears, Nose, Mouth, and Throat: Denies sore throat - Cardiovascular Cardiovascular: Denies chest pain - Respiratory Respiratory: No cough - Gastrointestinal Gastrointestingal: Denies: abdominal pain - Genitourinary Female Genitourinary: Denies hematuria - Musculoskeletal Musculoskeletal: Reports as per HPI, Reports joint pain, Reports limited range of motion - Integumentary/Breasts Skin/Breast: Denies rash - Neurologic Neurologic: Denies seizure-like activity Physical Exam - General General appearance: alert - Head Head exam: normocephalic - Eye Eye exam: Present: PERRL, EOMI - ENT ENT exam: Present: mucous membranes dry - Neck Neck exam: Present: trachea midline - Respiratory Respiratory exam: Present: other (dec bs bilat ). Absent: respiratory distress - Cardiovascular Cardiovascular exam: Present: regular rate, systolic murmur, +S4 - Abdominal Exam Abdominal exam: Present: soft - Extremities Exam Extremities exam: Absent: calf tenderness - Expanded Lower Extremity Exam Left Hip/Pelvis exam: Present: tenderness, pelvis stable, shortening of leg, pain on hip/pelvis palpation, hip pain on leg movement. Absent: full ROM - Neurological Exam Neurological exam: Present: alert, oriented X3, CN II-XII intact - Psychiatric Psychiatric exam: Present: normal affect - Skin Skin exam: Absent: rash
[2019-02-02 20:17] LABS: Alanine Aminotransferase 23 U/L (12-78); Albumin Level 2.9 gm/dL (3.4-5.0); Albumin/Globulin Ratio 0.9 (1.1-1.8); Alkaline Phosphatase 134 U/L (46-116); Anion Gap 14.3 mEq/L (5-15); Aspartate Amino Transferase 47 U/L (15-37); Bilirubin,Total 0.5 mg/dL (0.2-1.0); Blood Urea Nitrogen 16 mg/dL (7-18); Calcium 8.1 mg/dL (8.5-10.1); Carbon Dioxide 26 mmol/L (21.0-32.0); Chloride 104 mmol/L (98-107); Creatine Kinase 289 U/L (26-192); Globulin 3.4 gm/dl (1.3-3.2); Glucose 108 mg/dL (74-106); Sodium 140 mmol/L (136-145); Total Protein,Serum 6.3 gm/dL (6.4-8.2)
[2019-02-02 22:50] LABS: Microscopic, Urine URINE MICROSCOPIC (MICROSCOPIC)
[2019-02-02 22:52] LABS: Appearance,Urine CLEAR (Clear); Bilirubin,Urine Negative (Negative); Blood, Urine 2+ (Negative); Color,Urine YELLOW (Yellow); Glucose,Urine (UA) Negative (Negative); Ketones,Urine Negative (Negative); Leukocyte Esterase,Urine 1+ (Negative); Protein,Urine Negative (Negative); Urobilinogen,Urine 0.2 EU/dl (0.2)
[2019-02-02 23:19] LABS: Bacteria,Urine 3+ /lpf; RBC,Urine Occasional #/hpf (0-3)
--- NOTE | 2019-02-03 07:25 | Pharmacy Consult Notes ---
[facility] Pharmacy VTE Monitoring - Patient Demographics Admission date: 02/02/19 Report Date: 02/03/19 Time: 07:24 Allergies/Adverse Reactions: Patient Allergies hydrocodone [HYDROCODONE] Allergy (Unknown, Verified 01/22/19 03:48) Height: 1.55 m Weight: 36.939 kg Patient Problems: Current Active Problems (Updated 02/02/19 @ 23:03 by Moshe Miner MD) Acute exacerbation of chronic obstructive airways disease (Acute) LBBB (left bundle branch block) (Acute) Hip fracture, intertrochanteric (Acute) - VTE Risk Labs: VTE Related Lab Results Hgb 12.8 g/dL (12.2-16.2) 02/02/19 18:53 Hct 41.1 % (37.0-47.0) 02/02/19 18:53 Plt Count 178 K/mm3 (142-424) 02/02/19 18:53 BUN 16 mg/dL (7-18) 02/02/19 18:53 Creatinine 0.52 mg/dL (0.55-1.02) L 02/02/19 18:53 Estimated Creat Clear 26 mL/min (50-200) 02/02/19 18:53 Was VTE Risk Assessment Performed: Yes VTE Score: 8 VTE Risk Level: Moderate Risk Clinical Trial Participant: No - Prophylaxis VTE Prophylaxis Ordered?: Yes Types of VTE Prophylaxis: TEDS Knee High
--- NOTE | 2019-02-03 07:38 | History & Physical Report ---
*Admission Date: 02/02/19 *Chief complaint: Fall at home with left hip pain *History of present illness: 78-year-old female discharged from [facility] yesterday after 2- day hospital stay for chest pain with left heart catheterization revealing right coronary disease, mildly elevated left ventricular end-diastolic pressure, nonischemic cardiomyopathy with ejection fraction of 25%. Patient was at home and tell me she tripped over some objects that were stacked in her home landing on her left hip and arm. This resulted in a left hip fracture. Patient was transported to the ER where left hip fracture was diagnosed and she has been admitted for repair. [facility] History I have reviewed the patient's past medical history: Yes Medical History: Reports:: Asthma, Cancer (SKIN), Cardiomyopathy, Chronic Obstructive Pulmonary Disease (COPD), Coronary Artery Disease, Gastroesophageal Reflux Disease(GERD), Hyperlipidemia, Hypertension, Kidney Stones, MRSA, Myocardial Infarction Denies:: Diabetes Mellitus Type 1, Diabetes Mellitus Type 2 *Have you ever received a pneumonia vaccine?: Yes *Have you received a flu vaccine this season?: Yes Other Medical History: Reports: Arthritis Laterality Cases: Right: Total Hip Replacement Other Surgeries: Yes: No Previous Surgery, CABG, Skin Cancer Excision (SKIN C ANCER REMOVAL ON NOSE) Amputation: No Fractures: Yes (BACK AND HIP) - *Social History Educational Level: Attended High School Smoking Status: Current every day smoker Tobacco Type: cigarettes # Packs/Day (cigarettes): 1 #Yrs smoked (if former smoker): 60 Alcohol Intake: never Substance Use Type: denies use *Occupational Status:: retired Housing: house *Travel in the last 8 weeks: None - Psychiatric History Expresses thoughts of harming self/others: None Suicide Plan Description: No Plan Family Hx:: Coronary Artery Disease, Heart Attack, Hyperlipidemia, Hypertension Review of Systems - Review of Systems Review of systems:: pertinent systems reviewed and negative unless documented below - Constitutional Denies body ache(s), Denies chills, Denies fever(s) - *Cardiovascular Reports shortness of breath, Reports shortness of breath with activity, Denies generalized swelling, Denies irregular heart rhythm - *Respiratory Reports shortness of breath (Chronic from COPD), Denies change in phlegm color, Denies chest congestion, Denies cough - *Gastrointestinal Denies abdominal pain, Denies belching, Denies bloating - *Musculoskeletal Reports joint pain, Reports deformity, Reports limited joint movement - Integumentary/Breasts Denies hair loss - *Neurologic Denies seizure-like activity Meds Home Medications Medication Instructions Recorded Confirmed Type aspirin 81 mg tablet,delayed 81 mg PO DAILY tab 12/24/17 02/03/19 History release budesonide-formoterol HFA 160 2 puff INHALATION BID 12/24/17 02/03/19 History mcg-4.5 mcg/actuation aerosol inhaler cholecalciferol (vitamin D3) 5,000 2,000 unit PO DIRECTED cap 12/24/17 02/03/19 History unit capsule clopidogrel 75 mg tablet 75 mg PO DAILY tab 12/24/17 02/03/19 History levothyroxine 75 mcg tablet 75 mcg PO DAILY tab 12/24/17 02/03/19 History simvastatin 40 mg tablet 40 mg PO HS 12/24/17 02/03/19 History Escitalopram Oxalate [Lexapro] 10 mg PO HS 01/04/18 02/03/19 History Albuterol Sulfate [Albuterol 2.5 mg IH Q4HP PRN #60 neb 01/05/18 02/03/19 Rx Sulfate 2.5mg/0.5ml Neb] Sacubitril/Valsartan [Entresto 49 1 tab PO BID 03/30/18 02/03/19 History mg-51 mg Tablet] Omeprazole 20 mg PO DAILY 01/22/19 02/03/19 History Umeclidinium [place] [Incruse 1 puff INHALATION DAILY 01/22/19 02/03/19 History Ellipta] Albuterol Sulfate [Albuterol HFA 1 - 2 puffs IH Q4-6H PRN 02/01/19 02/03/19 History Inhaler] Carvedilol [Coreg 3.125mg Tablet] 3.125 mg PO BID 02/02/19 02/03/19 History Isosorbide Mononitrate [Imdur 30mg 30 mg PO DAILY 02/02/19 02/03/19 History ER tablet] Allergies Allergy/AdvReac Type Severity Reaction Status Date / Time hydrocodone [HYDROCODONE] Allergy Unknown Verified 01/22/19 03:48 Exam Vital signs and Labs for Last 24 Hours: Temp Pulse Resp BP Pulse Ox 98.2 F 54 L 26 H 123/60 100 02/03/19 04:00 02/03/19 06:00 02/03/19 04:00 02/03/19 04:00 02/03/19 06:00 Laboratory Results - last 24 hr 02/02/19 18:53: WBC 10.4, RBC 4.03 L, Hgb 12.8, Hct 41.1, MCV 102.2 H, MCH 31.8 H, MCHC 31.1 L, RDW 15.8, Plt Count 178, MPV 8.3, Neut % (Auto) 79.4, Lymph % (Auto) 14.9, [place] % (Auto) 3.5, Eos % (Auto) 1.3, Baso % (Auto) 0.9, Neut # (Auto) 8.2 H, Lymph # (Auto) 1.6, [place] # (Auto) 0.4, Eos # (Auto) 0.1, Baso # (Auto) 0.1 02/02/19 18:53: Sodium 140, Potassium 4.3, Chloride 104, Carbon Dioxide 26, Anion Gap 14.3, BUN 16, Creatinine 0.52 L, Estimated Creat Clear 26, Estimated GFR 114, Est GFR ( Amer) 138, Glucose 108 H, Calcium 8.1 L, Total Bilirubin 0.5, AST 47 H, ALT 23, Alkaline Phosphatase 134 H, Total Creatine Kinase 289 H, Troponin I < 0.02, Total Protein 6.3 L, Albumin 2.9 L, Globulin 3.4 H, Albumin/Globulin Ratio 0.9 L 02/02/19 19:53: Urine Color Yellow, Urine Appearance Clear, Urine pH 7.0, Ur Specific [place] 1.020, Urine Protein Negative, Urine Glucose (UA) Negative, Urine Ketones Negative, Urine Blood 2+, Urine Nitrate Negative, Urine Bilirubin Negative, Urine Urobilinogen 0.2, Ur Leukocyte Esterase 1+ A, Urine RBC Occasional, Urine WBC 3-5, Urine Bacteria 3+ 02/03/19 02:30: Troponin I 0.03 I & O for Last 24 hours: Intake & Output 01/31/19 02/01/19 02/02/19 02/03/19 11:59 11:59 11:59 11:59 Intake Total 471 / 471 Output Total 200 / 200 Balance 271 / 271 Weight 81 lb 7 oz Narrative: Patient is awake and alert laying in bed hip and knee are flexed and hip is externally rotated. ENT exam is unremarkable. Neck has no carotid bruits. Lungs are clear to auscultation. Heart has a regular rate and rhythm. Abdomen is thin and soft. Extremities are without edema Assessment and Plan (1) Hip fracture, intertrochanteric Current visit: Yes Status: Acute Qualifiers: Encounter type: initial encounter Fracture type: closed Fracture alignment: displaced Laterality: left Qualified Code(s): S72.142A - Displaced intertrochanteric fracture of left femur, initial encounter for closed fracture Category: Medical Code(s): S72.143A - Displaced intertrochanteric fracture of unspecified femur, initial encounter for closed fracture (2) Left ventricular systolic dysfunction, chronic Current visit: Yes Status: Acute Category: Medical Code(s): I51.9 - Heart disease, unspecified (3) LBBB (left bundle branch block) Current visit: Yes Status: Acute Category: Medical Code(s): I44.7 - Left bundle-branch block, unspecified (4) CAD (coronary artery disease) Current visit: No Status: Acute Category: Medical Code(s): I25.10 - Atherosclerotic heart disease of [place] coronary artery without angina pectoris - Assessment and plan all Dx Assessment and Plan for all problems:: 1. Even though patient was just hospitalized I will ask cardiology to see the patient for preoperative assessment 2. Continue current cardiac regimen in anticipation of surgery 3. Orthopedic consult 4. Hold Plavix
[2019-02-03 08:02] LABS: INR 1.04 (0.9-1.1); Prothrombin Time 10.8 seconds (9.4-11.8)
[2019-02-03 08:30] LABS: Calcium 8.2 mg/dL (8.5-10.1)
[2019-02-03 08:46] LABS: Basophils # 0.1 K/mm3 (0-0.2); Basophils % 0.5 % (0.1-2.0); Eosinophils % 0.1 % (0.1-12.0); Lymphocytes # 1.2 K/mm3 (0.7-4.5); Lymphocytes % 6.5 % (10-50); Mean Corpuscular HGB Conc 30.7 g/dL (31.8-35.4); Mean Corpuscular Volume 102.7 fl (81-99); Mean Platelet Volume 9.1 fl (7.4-10.4); Monocytes # 0.7 K/mm3 (0.1-1.0); Monocytes % 3.6 % (1.7-9.3); Neutrophils # 16.3 K/mm3 (1.8-7.8); Neutrophils % 89.2 % (37.0-80.0); Platelet Count 157 K/mm3 (142-424); Red Cell Distribution Width 15.9 % (11.5-17.5); White Blood Count 18.3 K/mm3 (4.8-10.8)
--- NOTE | 2019-02-03 09:46 | Consult Report ---
History of Present Illness Consult date: 02/03/19 Requesting physician: Manuel Abdul Consult reason: known to you, pre-op evaluation Chief complaint: Left hip pain Additional Medical History:: 1. Nonischemic cardiomyopathy 2. Coronary artery disease 3. Hypertension 4. Hyperlipidemia 5. Myocardial infarction 6. COPD 7. Tobacco user [facility] 02.01.19 IMPRESSION: 1. Moderate disease in the proximal right coronary artery which is not ischemic at this time 2. Nonischemic cardiomyopathy 3. Patient is known to have an occluded left internal mammary graft to the LAD therefore was not engaged 4. Mildly elevated LVEDP PLAN: 1. Medical management History of present illness: This is a 78-year-old female who is a known patient of Dr. Fletcher. She has a history of coronary artery disease status post coronary artery bypass grafting. She did undergo recent left cardiac catheterization 2 days ago which showed patent coronary artery disease and no percutaneous intervention was required. The patient does have nonischemic cardiomyopathy. She denies any chest pain or pressure. She denies any shortness of breath or edema. She denies any fever, chills, nausea, vomiting, diarrhea, PND or orthopnea. Her only complaint today is that she is tired and she is having left hip pain. She states that after getting home from the hospital she tripped over some items in her home and fell. During the fall she did sustain a left hip fracture that will require repair. Cardiology has been consulted for clearance for her left hip fracture repair. [facility] History I have reviewed the patient's past medical history: Yes Medical History: Reports:: Asthma, Cancer (SKIN), Cardiomyopathy, Chronic Obstructive Pulmonary Disease (COPD), Coronary Artery Disease, Gastroesophageal Reflux Disease(GERD), Hyperlipidemia, Hypertension, Kidney Stones, MRSA, Myocardial Infarction Denies:: Diabetes Mellitus Type 1, Diabetes Mellitus Type 2 *Have you ever received a pneumonia vaccine?: Yes *Have you received a flu vaccine this season?: Yes Other Medical History: Reports: Arthritis Laterality Cases: Right: Total Hip Replacement Other Surgeries: Yes: No Previous Surgery, CABG, Skin Cancer Excision (SKIN CANCER REMOVAL ON NOSE) Amputation: No Fractures: Yes (BACK AND HIP) - *Social History Educational Level: Attended High School Smoking Status: Current every day smoker Tobacco Type: cigarettes # Packs/Day (cigarettes): 1 #Yrs smoked (if former smoker): 60 Alcohol Intake: never Substance Use Type: denies use *Occupational Status:: retired Housing: house *Travel in the last 8 weeks: None - Psychiatric History Expresses thoughts of harming self/others: None Suicide Plan Description: No Plan Family Hx:: Coronary Artery Disease, Heart Attack, Hyperlipidemia, Hypertension Meds Home Medications Medication Instructions Recorded Confirmed Type aspirin 81 mg tablet,delayed 81 mg PO DAILY tab 12/24/17 02/03/19 History release budesonide-formoterol HFA 160 2 puff INHALATION BID 12/24/17 02/03/19 History mcg-4.5 mcg/actuation aerosol inhaler cholecalciferol (vitamin D3) 5,000 2,000 unit PO DIRECTED cap 12/24/17 02/03/19 History unit capsule clopidogrel 75 mg tablet 75 mg PO DAILY tab 12/24/17 02/03/19 History levothyroxine 75 mcg tablet 75 mcg PO DAILY tab 12/24/17 02/03/19 History simvastatin 40 mg tablet 40 mg PO HS 12/24/17 02/03/19 History Escitalopram Oxalate [Lexapro] 10 mg PO HS 01/04/18 02/03/19 History Albuterol Sulfate [Albuterol 2.5 mg IH Q4HP PRN #60 neb 01/05/18 02/03/19 Rx Sulfate 2.5mg/0.5ml Neb] Sacubitril/Valsartan [Entresto 49 1 tab PO BID 03/30/18 02/03/19 History mg-51 mg Tablet] Omeprazole 20 mg PO DAILY 01/22/19 02/03/19 History Umeclidinium [place] [Incruse 1 puff INHALATION DAILY 01/22/19 02/03/19 History Ellipta] Albuterol Sulfate [Albuterol HFA 1 - 2 puffs IH Q4-6H PRN 02/01/19 02/03/19 History Inhaler] Carvedilol [Coreg 3.125mg Tablet] 3.125 mg PO BID 02/02/19 02/03/19 History Isosorbide Mononitrate [Imdur 30mg 30 mg PO DAILY 02/02/19 02/03/19 History ER tablet] Allergies Allergy/AdvReac Type Severity Reaction Status Date / Time hydrocodone [HYDROCODONE] Allergy Unknown Verified 01/22/19 03:48 Review of Systems - Review of Systems Review of systems:: pertinent systems reviewed and negative unless documented below - Constitutional Reports fatigue - *Musculoskeletal Reports joint pain (Left hip) - *Neurologic Denies seizure-like activity Exam Vital signs and Labs for Last 24 Hours: Temp Pulse Resp BP Pulse Ox 97.7 F 75 24 90/51 L 99 02/03/19 08:00 02/03/19 08:00 02/03/19 08:00 02/03/19 08:00 02/03/19 08:34 Laboratory Results - last 24 hr 02/02/19 18:53: WBC 10.4, RBC 4.03 L, Hgb 12.8, Hct 41.1, MCV 102.2 H, MCH 31.8 H, MCHC 31.1 L, RDW 15.8, Plt Count 178, MPV 8.3, Neut % (Auto) 79.4, Lymph % (Auto) 14.9, [place] % (Auto) 3.5, Eos % (Auto) 1.3, Baso % (Auto) 0.9, Neut # (Auto) 8.2 H, Lymph # (Auto) 1.6, [place] # (Auto) 0.4, Eos # (Auto) 0.1, Baso # (Auto) 0.1 02/02/19 18:53: Sodium 140, Potassium 4.3, Chloride 104, Carbon Dioxide 26, Anion Gap 14.3, BUN 16, Creatinine 0.52 L, Estimated Creat Clear 26, Estimated GFR 114, Est GFR ( Amer) 138, Glucose 108 H, Calcium 8.1 L, Total Bilirubin 0.5, AST 47 H, ALT 23, Alkaline Phosphatase 134 H, Total Creatine Kinase 289 H, Troponin I < 0.02, Total Protein 6.3 L, Albumin 2.9 L, Globulin 3.4 H, Albumin/Globulin Ratio 0.9 L 02/02/19 19:53: Urine Color Yellow, Urine Appearance Clear, Urine pH 7.0, Ur Specific [place] 1.020, Urine Protein Negative, Urine Glucose (UA) Negative, Urine Ketones Negative, Urine Blood 2+, Urine Nitrate Negative, Urine Bilirubin Negative, Urine Urobilinogen 0.2, Ur Leukocyte Esterase 1+ A, Urine RBC Occasional, Urine WBC 3-5, Urine Bacteria 3+ 02/03/19 02:30: Troponin I 0.03 02/03/19 06:50: Troponin I 0.03 02/03/19 06:50: WBC 18.3 H D, RBC 3.80 L, Hgb 12.0 L, Hct 39.0, MCV 102.7 H, MCH 31.5 H, MCHC 30.7 L, RDW 15.9, Plt Count 157, MPV 9.1, Neut % (Auto) 89.2 H, Lymph % (Auto) 6.5 L, [place] % (Auto) 3.6, Eos % (Auto) 0.1, Baso % (Auto) 0.5, Neut # (Auto) 16.3 H, Lymph # (Auto) 1.2, [place] # (Auto) 0.7, Eos # (Auto) 0.0, Baso # (Auto) 0.1 02/03/19 06:50: PT 10.8, INR 1.04 02/03/19 06:50: Sodium 141, Potassium 5.0, Chloride 106, Carbon Dioxide 19 L D, Anion Gap 21.0 H, BUN 31 H D, Creatinine 1.33 H D, Estimated Creat Clear 21, Estimated GFR 39 L, Est GFR ( Amer) 47 L D, Glucose 100, Calcium 8.2 L, Magnesium 2.1 I & O for Last 24 hours: Intake & Output 01/31/19 02/01/19 02/02/19 02/03/19 23:59 23:59 23:59 23:59 Intake Total 471 / 471 Output Total 200 / 200 Balance 271 / 271 Weight 79 lb 8 oz 81 lb 7 oz Microbiology Reports for the Last 24 Hours: Microbiology 02/02/19 19:53 Urine,Catheterized Urine Culture - Preliminary Gram Negative Rods Narrative: EKG is sinus tachycardia with a rate of 113, LVH, nonspecific ST and T wave abnormalities and PACs. Her telemetry strip shows sinus tachycardia with a rate of 102. - Constitutional no acute distress, average body habitus - *Routine HEENT Exam Head: Present: normocephalic, atraumatic Eye: Present: EOMI, PERRL ENT: Present: mucous membranes moist - *Routine Neck Exam Present: supple, full ROM, normal carotid upstroke. Absent: JVD, carotid bruit, lymphadenopathy - *Routine Respiratory Exam Present: decreased breath sounds, CTA bilaterally - *Routine Cardiovascular Exam Present: Normal S1, Normal S2, tachycardia. Absent: murmur - *Routine Abdominal Exam Present: soft, normoactive bowel sounds. Absent: tenderness, distended - *Routine Extremities Exam Present: full ROM (Except left lower extremity), pulses intact, normal capillary refill. Absent: cyanosis, clubbing, edema - *Routine Skin Exam Present: intact, warm. Absent: erythema, rash - *Routine Neurological Exam Present: alert, oriented X3, CN II-XII intact. Absent: sensory deficit, motor deficit - Routine Psychiatric Exam Present: normal affect, normal thought process - Detailed Eye Exam Eyelids: Left normal inspection Assessment and Plan (1) Hip fracture, intertrochanteric Current visit: Yes Status: Acute Qualifiers: Encounter type: initial encounter Fracture type: closed Fracture alignment: displaced Laterality: left Qualified Code(s): S72.142A - Displa prabhjot intertrochanteric fracture of left femur, initial encounter for closed fracture Category: Medical Code(s): S72.143A - Displaced intertrochanteric fracture of unspecified femur, initial encounter for closed fracture (2) Left ventricular systolic dysfunction, chronic Current visit: Yes Status: Acute Category: Medical Code(s): I51.9 - Heart disease, unspecified (3) LBBB (left bundle branch block) Current visit: Yes Status: Acute Category: Medical Code(s): I44.7 - Left bundle-branch block, unspecified (4) CAD (coronary artery disease) Current visit: No Status: Acute Category: Medical Code(s): I25.10 - Atherosclerotic heart disease of [place] coronary artery without angina pectoris (5) Hyperlipidemia Current visit: No Status: Acute Qualifiers: Hyperlipidemia type: mixed hyperlipidemia Qualified Code(s): E78.2 - Mixed hyperlipidemia Category: Medical Code(s): E78.5 - Hyperlipidemia, unspecified (6) Hypertensive disorder Current visit: No Status: Acute Qualifiers: Hypertension type: essential hypertension Qualified Code(s): I10 - Essential (primary) hypertension Category: Medical Code(s): I10 - Essential (primary) hypertension (7) Sinus tachycardia Current visit: No Status: Acute Category: Medical Code(s): R00.0 - Tachycardia, unspecified (8) Tobacco use Current visit: No Status: Acute Category: Medical Code(s): Z72.0 - Tobacco use (9) Gastroesophageal reflux disease Current visit: No Status: Chronic Qualifiers: Esophagitis presence: esophagitis presence not specified Qualified Code(s): K21.9 - Gastro-esophageal reflux disease without esophagitis Category: Medical Code(s): K21.9 - Gastro-esophageal reflux disease without esophagitis - Assessment and plan all Dx Assessment and Plan for all problems:: Plan: 1. The patient was admitted to the hospital after a fall at home. She did sustain a left hip fracture. The patient will require surgical intervention for repair of her left hip fracture. She is complaining of left hip pain today. This is being managed by her primary care provider and orthopedics. 2. The patient does have known coronary artery disease. This is stable. She did undergo left cardiac catheterization on Friday which showed patent coronary disease with no percutaneous intervention. Her coronary artery disease is stable. 3. She does have a nonischemic cardiomyopathy. The patient has no signs of overt heart failure on examination today. Will need to be mindful of fluid intake so the patient does not go into pulmonary edema. 4. Her blood pressure is acceptable. It is on the low side. We will continue to monitor. 5. Her LDL goal is less than 55. 6. Tobacco cessation is highly advised and counseled. 7. The patient is at acceptable risk from a cardiac standpoint to proceed with left hip fracture repair per Dr. Fletcher. Please be mindful of fluids to avoid putting the patient in pulmonary edema as she has known nonischemic cardiomyopathy. 8. The patient is tachycardic today. However this is most likely from her pain. No changes at this time. If she remains tachycardic once her pain is under good control then cardiology can be consulted for further recommendations. 9. No further recommendations at this time from a cardiovascular standpoint. Cardiology will be available for further recommendations if needed throughout her hospitalization. Thank you for the opportunity to help participate in the care of this patient.
--- NOTE | 2019-02-03 09:48 | Consult Report ---
*Admission Date: 02/02/19 *Reason for consult:: Fracture left hip *History of present illness: 78-year-old female admitted to hospital overnight from the ER for management of a displaced intertrochanteric fracture, left hip. Patient was discharged from [facility] yesterday after 2-day hospital stay for chest pain with left heart catheterization revealing right coronary disease, mildly elevat ed left ventricular end-diastolic pressure, nonischemic cardiomyopathy with ejection fraction of 25%. Patient fell at home after she tripped over some objects that were stacked in her home landing on her left hip and arm. She developed pain in her left hip following the fall and was unable to weight-bear or walk. Patient was transported to the ER where left hip fracture was diagnosed on x-rays and she has been admitted to medical services for further management. Patient denies any dizziness, headache, chest or neck pain. She says her pain is well controlled at rest but trying to move the LEFT leg causes hip pain. She denies loss of consciousness, chest pain and shortness of breath. She had a similar injury to her RIGHT hip few years ago and underwent a cephalo- medullary nailing. Review of Systems - Review of Systems Review of systems:: pertinent systems reviewed and negative unless documented below - Constitutional Denies chills, Denies fever(s) - *Cardiovascular Reports shortness of breath with activity, Denies chest pain, Denies irregular heart rhythm, Denies leg swelling - *Respiratory Reports shortness of breath, Denies chest congestion, Denies cough - *Gastrointestinal Denies abdominal pain, Denies bloating - *Musculoskeletal Reports joint pain, Reports deformity, Reports limited joint movement - *Neurologic Denies seizure-like activity [facility] History I have reviewed the patient's past medical history: Yes Medical History: Reports:: Asthma, Cancer (SKIN), Cardiomyopathy, Chronic Obs tructive Pulmonary Disease (COPD), Coronary Artery Disease, Gastroesophageal Reflux Disease(GERD), Hyperlipidemia, Hypertension, Kidney Stones, MRSA, Myocardial Infarction Denies:: Diabetes Mellitus Type 1, Diabetes Mellitus Type 2 *Have you ever received a pneumonia vaccine?: Yes *Have you received a flu vaccine this season?: Yes Other Medical History: Reports: Arthritis Laterality Cases: Right: Total Hip Replacement Other Surgeries: Yes: No Previous Surgery, CABG, Skin Cancer Excision (SKIN CANCER REMOVAL ON NOSE) Amputation: No Fractures: Yes (BACK AND HIP) - *Social History Educational Level: Attended High School Smoking Status: Current every day smoker Tobacco Type: cigarettes # Packs/Day (cigarettes): 1 #Yrs smoked (if former smoker): 60 Alcohol Intake: never Substance Use Type: denies use *Occupational Status:: retired Housing: house *Travel in the last 8 weeks: None - Psychiatric History Expresses thoughts of harming self/others: None Suicide Plan Description: No Plan Family Hx:: Coronary Artery Disease, Heart Attack, Hyperlipidemia, Hypertension Meds Home Medications Medication Instructions Recorded Confirmed Type aspirin 81 mg tablet,delayed 81 mg PO DAILY tab 12/24/17 02/03/19 History release budesonide-formoterol HFA 160 2 puff INHALATION BID 12/24/17 02/03/19 History mcg-4.5 mcg/actuation aerosol inhaler cholecalciferol (vitamin D3) 5,000 2,000 unit PO DIRECTED cap 12/24/17 02/03/19 History unit capsule clopidogrel 75 mg tablet 75 mg PO DAILY tab 12/24/17 02/03/19 History levothyroxine 75 mcg tablet 75 mcg PO DAILY tab 12/24/17 02/03/19 History simvastatin 40 mg tablet 40 mg PO HS 12/24/17 02/03/19 History Escitalopram Oxalate [Lexapro] 10 mg PO HS 01/04/18 02/03/19 History Albuterol Sulfate [Albuterol 2.5 mg IH Q4HP PRN #60 neb 01/05/18 02/03/19 Rx Sulfate 2.5mg/0.5ml Neb] Sacubitril/Valsartan [Entresto 49 1 tab PO BID 03/30/18 02/03/19 History mg-51 mg Tablet] Omeprazole 20 mg PO DAILY 01/22/19 02/03/19 History Umeclidinium [place] [Incruse 1 puff INHALATION DAILY 01/22/19 02/03/19 History Ellipta] Albuterol Sulfate [Albuterol HFA 1 - 2 puffs IH Q4-6H PRN 02/01/19 02/03/19 History Inhaler] Carvedilol [Coreg 3.125mg Tablet] 3.125 mg PO BID 02/02/19 02/03/19 History Isosorbide Mononitrate [Imdur 30mg 30 mg PO DAILY 02/02/19 02/03/19 History ER tablet] Allergies Allergy/AdvReac Type Severity Reaction Status Date / Time hydrocodone [HYDROCODONE] Allergy Unknown Verified 01/22/19 03:48 Exam Vital signs and Labs for Last 24 Hours: Temp Pulse Resp BP Pulse Ox 97.7 F 75 24 90/51 L 99 02/03/19 08:00 02/03/19 08:00 02/03/19 08:00 02/03/19 08:00 02/03/19 08:34 Laboratory Results - last 24 hr 02/02/19 18:53: WBC 10.4, RBC 4.03 L, Hgb 12.8, Hct 41.1, MCV 102.2 H, MCH 31.8 H, MCHC 31.1 L, RDW 15.8, Plt Count 178, MPV 8.3, Neut % (Auto) 79.4, Lymph % (Auto) 14.9, [place] % (Auto) 3.5, Eos % (Auto) 1.3, Baso % (Auto) 0.9, Neut # (Auto) 8.2 H, Lymph # (Auto) 1.6, [place] # (Auto) 0.4, Eos # (Auto) 0.1, Baso # (Auto) 0.1 02/02/19 18:53: Sodium 140, Potassium 4.3, Chloride 104, Carbon Dioxide 26, Anion Gap 14.3, BUN 16, Creatinine 0.52 L, Estimated Creat Clear 26, Estimated GFR 114, Est GFR ( Amer) 138, Glucose 108 H, Calcium 8.1 L, Total Bilirubin 0.5, AST 47 H, ALT 23, Alkaline Phosphatase 134 H, Total Creatine Kinase 289 H, Troponin I < 0.02, Total Protein 6.3 L, Albumin 2.9 L, Globulin 3.4 H, Albumin/Globulin Ratio 0.9 L 02/02/19 19:53: Urine Color Yellow, Urine Appearance Clear, Urine pH 7.0, Ur Specific [place] 1.020, Urine Protein Negative, Urine Glucose (UA) Negative, Urine Ketones Negative, Urine Blood 2+, Urine Nitrate Negative, Urine Bilirubin Negative, Urine Urobilinogen 0.2, Ur Leukocyte Esterase 1+ A, Urine RBC Occasional, Urine WBC 3-5, Urine Bacteria 3+ 02/03/19 02:30: Troponin I 0.03 02/03/19 06:50: Troponin I 0.03 02/03/19 06:50: WBC 18.3 H D, RBC 3.80 L, Hgb 12.0 L, Hct 39.0, MCV 102.7 H, MCH 31.5 H, MCHC 30.7 L, RDW 15.9, Plt Count 157, MPV 9.1, Neut % (Auto) 89.2 H, Lymph % (Auto) 6.5 L, [place] % (Auto) 3.6, Eos % (Auto) 0.1, Baso % (Auto) 0.5, Neut # (Auto) 16.3 H, Lymph # (Auto) 1.2, [place] # (Auto) 0.7, Eos # (Auto) 0.0, Baso # (Auto) 0.1 02/03/19 06:50: PT 10.8, INR 1.04 02/03/19 06:50: Sodium 141, Potassium 5.0, Chloride 106, Carbon Dioxide 19 L D, Anion Gap 21.0 H, BUN 31 H D, Creatinine 1.33 H D, Estimated Creat Clear 21, Estimated GFR 39 L, Est GFR ( Amer) 47 L D, Glucose 100, Calcium 8.2 L, Magnesium 2.1 I & O for Last 24 hours: Intake & Output 01/31/19 02/01/19 02/02/19 02/03/19 11:59 11:59 11:59 11:59 Intake Total 471 / 471 Output Total 200 / 200 Balance 271 / 271 Weight 81 lb 7 oz Microbiology Reports for the Last 24 Hours: Microbiology 02/02/19 19:53 Urine,Catheterized Urine Culture - Preliminary Gram Negative Rods - Constitutional no acute distress, thin, cooperative - *Routine HEENT Exam Head: Present: normocephalic, atraumatic Eye: Present: EOMI ENT: Present: mucous membranes moist - *Routine Neck Exam Present: supple, trachea midline. Absent: lymphadenopathy - *Routine Respiratory Exam Present: CTA bilaterally. Absent: respiratory distress - *Routine Cardiovascular Exam Present: RRR, Normal S1, Normal S2, tachycardia - *Routine Abdominal Exam Present: soft, normoactive bowel sounds. Absent: organomegaly - *Routine Extremities Exam Comments: On examination of her lower extremities, there is shortening of the LEFT leg and the foot is externally rotated. On examination of the LEFT hip the skin is intact. No rashes or lesions noted. She is tender over the LEFT hip. Any attempted movements of the LEFT hip are painful. Thigh and calf are soft and nontender. Dorsalis pedis and posterior tibial pulses are palpable 2+ bilaterally. Sensation is grossly intact. She has good range of foot, ankle and toe movements. She has well-healed surgical scars over the lateral aspect of the right hip/thigh from previous surgery. Imaging: X-rays of her pelvis AP view, LEFT hip AP and lateral views and LEFT femur AP and lateral views are showing a comminuted, displaced, unstable intertrochanteric fracture of the LEFT proximal femur. Hip joint is fairly well- preserved. Her distal femur appears normal. Proximal part of the cephalo- medullary nail noted on the right side with a well-healed fracture. - Routine Back/Spine/Pelvis Exam Back/Spine: Absent: paraspinal tenderness, vertebral tenderness - *Routine Skin Exam Present: intact, warm, normal turgor - *Routine Neurological Exam Present: alert, oriented X3, CN II-XII intact - Routine Psychiatric Exam Present: normal affect, cooperative Results - Labs Result Diagrams: 02/03/19 14:40 02/03/19 13:45 Labs: Abnormal lab results 02/02/19 02/02/19 02/02/19 Range/Units 18:53 18:53 19:53 WBC (4.8-10.8) K/mm3 RBC 4.03 L (4.20-5.40) M/mm3 Hgb (12.2-16.2) g/dL MCV 102.2 H (81-99) fl MCH 31.8 H (27.0-31.2) pg MCHC 31.1 L (31.8-35.4) g/dL Neut % (Auto) (37.0-80.0) % Lymph % (Auto) (10-50) % Neut # (Auto) 8.2 H (1.8-7.8) K/mm3 Carbon Dioxide (21.0-32.0) mmol/L Anion Gap (5-15) mEq/L BUN (7-18) mg/dL Creatinine 0.52 L (0.55-1.02) mg/dL Estimated GFR (>60) ml/min Est GFR ( Amer) (>60) ML/MIN Glucose 108 H (74-106) mg/dL Calcium 8.1 L (8.5-10.1) mg/dL AST 47 H (15-37) U/L Alkaline Phosphatase 134 H (46-116) U/L Total Creatine Kinase 289 H (26-192) U/L Total Protein 6.3 L (6.4-8.2) gm/dL Albumin 2.9 L (3.4-5.0) gm/dL Globulin 3.4 H (1.3-3.2) gm/dl Albumin/Globulin Ratio 0.9 L (1.1-1.8) Ur Leukocyte Esterase 1+ A (Negative) 02/03/19 02/03/19 Range/Units 06:50 06:50 WBC 18.3 H D (4.8-10.8) K/mm3 RBC 3.80 L (4.20-5.40) M/mm3 Hgb 12.0 L (12.2-16.2) g/dL MCV 102.7 H (81-99) fl MCH 31.5 H (27.0-31.2) pg MCHC 30.7 L (31.8-35.4) g/dL Neut % (Auto) 89.2 H (37.0-80.0) % Lymph % (Auto) 6.5 L (10-50) % Neut # (Auto) 16.3 H (1.8-7.8) K/mm3 Carbon Dioxide 19 L D (21.0-32.0) mmol/L Anion Gap 21.0 H (5-15) mEq/L BUN 31 H D (7-18) mg/dL Creatinine 1.33 H D (0.55-1.02) mg/dL Estimated GFR 39 L (>60) ml/min Est GFR ( Amer) 47 L D (>60) ML/MIN Glucose (74-106) mg/dL Calcium 8.2 L (8.5-10.1) mg/dL AST (15-37) U/L Alkaline Phosphatase (46-116) U/L Total Creatine Kinase (26-192) U/L Total Protein (6.4-8.2) gm/dL Albumin (3.4-5.0) gm/dL Globulin (1.3-3.2) gm/dl Albumin/Globulin Ratio (1.1-1.8) Ur Leukocyte Esterase (Negative) H & H 02/02/19 02/03/19 Range/Units 18:53 06:50 Hgb 12.8 12.0 L (12.2-16.2) g/dL Hct 41.1 39.0 (37.0-47.0) % Coagulation 02/03/19 Range/Units 06:50 INR 1.04 (0.9-1.1) All other labs normal. Assessment and Plan (1) Hip fracture, intertrochanteric Current visit: Yes Status: Acute Qualifiers: Encounter type: initial encounter Fracture type: closed Fracture alignment: displaced Laterality: left Qualified Code(s): S72.142A - Displaced intertrochanteric fracture of left femur, initial encounter for closed fracture Category: Medical Code(s): S72.143A - Displaced intertrochanteric fracture of unspecified femur, initial encounter for closed fracture (2) Left ventricular systolic dysfunction, chronic Current visit: Yes Status: Acute Category: Medical Code(s): I51.9 - Heart disease, unspecified (3) LBBB (left bundle branch block) Current visit: Yes Status: Acute Category: Medical Code(s): I44.7 - Left bundle-branch block, unspecified (4) CAD (coronary artery disease) Current visit: No Status: Acute Category: Medical Code(s): I25.10 - Atherosclerotic heart disease of [place] coronary artery without angina pectoris - Assessment and plan all Dx Assessment and Plan for all problems:: I have reviewed the clinical and x-ray findings with the patient. I have discussed the diagnosis, natural history and management options in detail includ ing both nonsurgical and surgical. I have recommended surgical remediation in the form of a cephalo-medullary nailing left femur. I explained the procedure, risks and benefits, alternatives and the expected postoperative course. I explained to the patient about the fracture and the proposed surgical procedure utilizing paper copies of x-rays and drawings. The complications discussed include but are not limited to infection, bleeding, injury to nerves and blood vessels, DVT, PE, screw cut-out/implant failure, loss of fixation, nonunion, malunion/malrotation, osteonecrosis of the femoral head, femoral shaft fracture, painful hardware, heterotopic ossification, stiffness, weakness, incomplete r elief of pain, incomplete return of function or motion and the likely need for further surgery in future, and anesthetic/medical complications including heart attack, stroke, transfusion reactions or . We discussed how any of these events can be devastating. I've explained that the patient is at a significant surgical risk due to her age, cardiac and other medical issues, and fragility of the bone. Family and patient seemed to understand and accept these risks. We have discussed nonsurgical alternatives as well. The nonoperative management would essentially consist of prolonged bed rest and traction (skeletal/skin) in bed and pain medication and has exceptionally poor outcome. This could result in nonunion and malunion of the fracture and almost certainly, the patient has a very high risk of decubitus ulcers, UTI, respiratory tract infections, DVT/PE and other complications from being bedridden. I have explained to them that the standard of care for this sort of injuries is surgical throughout the country unless the patient is very ill for surgical management. We also discussed the postoperative course including the rehab and physical therapy required. All the questions were answered and she verbalized a good understanding. Patient was cleared for surgery by Dr. Abdul as well as by Dr. Fletcher with appropriate risk stratification. Well also obtain a preoperative anesthetic evaluation. The limb was marked appropriately and initialed by me. I have recommended- Type and screen Continue nothing by mouth Continue IV fluids DVT prophylaxis as per protocol Analgesia as needed Consent patient for a cephalo-medullary nailing LEFT femur. Order 2 g of IV Ancef for preoperative prophylaxis to start half an hour before surgery I am planning to take her for surgery at the earliest opportunity today. Continue medical management as per Dr. Abdul. Thank you for the opportunity to take part in the care of this very pleasant patient.
--- NOTE | 2019-02-03 09:55 | Progress Note ---
[facility] Anesthesia Checklist - Patient Identification Patient Identification: Arm Band, Verbal (Name & ) - Structural Data Admitted From: Inpatient Planned Operative Procedure/s: l hip gamma nail Verified Documents: History and Physical - NPO Status Verified Time NPO: 00:00 - Additional verifications Patient : No Anesthesia Reactions: No Hx Blood Transfusions: No Blood Transfusion Reaction: No Cephalosporin Allergy: No Previous Colonoscopy: No - Cardiovascular Assessment Heart Sounds: S1 & S2 Pulse Strength: Baseline Pulse Rhythm: Regular Peripheral Edema: No - Airway Assessment C-Spine Mobility Assessed: Yes TMJ Mobility Assessed: Yes Dentition: Edentulous - Neurological Assessment Level of Consciousness: Awake, Alert, Appropriate Hx Seizures: No Numbness or tingling in extremities: No - Anesthesia Plan Anesthesia Risk discussed: Yes Anesthesia Plan: Verified ASA Class: III Anesthesia Type: Spinal [facility] History I have reviewed the patient's past medical history: Yes Medical History: Reports:: Asthma, Cancer (SKIN), Cardiomyopathy, Chronic Obstructive Pulmonary Disease (COPD), Coronary Artery Disease, Gastroesophageal Reflux Disease(GERD), Hyperlipidemia, Hypertension, Kidney Stones, MRSA, Myocardial Infarction Denies:: Diabetes Mellitus Type 1, Diabetes Mellitus Type 2 *Have you ever received a pneumonia vaccine?: Yes *Have you received a flu vaccine this season?: Yes Other Medical History: Reports: Arthritis Laterality Cases: Right: Total Hip Replacement Other Surgeries: Yes: No Previous Surgery, CABG, Skin Cancer Excision (SKIN CANCER REMOVAL ON NOSE) Amputation: No Fractures: Yes (BACK AND HIP) - *Social History Educational Level: Attended High School Smoking Status: Current every day smoker Tobacco Type: cigarettes # Packs/Day (cigarettes): 1 #Yrs smoked (if former smoker): 60 Alcohol Intake: never Substance Use Type: denies use *Occupational Status:: retired Housing: house *Travel in the last 8 weeks: None - Psychiatric History Expresses thoughts of harming self/others: None Suicide Plan Description: No Plan Family Hx:: Coronary Artery Disease, Heart Attack, Hyperlipidemia, Hypertension
[2019-02-03 10:54] LABS: Lymphocytes % 5 % (10-50); Monocytes % 4 % (2-9); Neutrophils % 88 % (42-76); Total Cells Counted 100
[2019-02-03 10:55] LABS: Macrocytosis 1+
[2019-02-03 13:25] LABS: ABG Base Excess -18.8 mmol/L (-2.4-2.3); ABG HCO3 10.4 mmhg (22.0-26.0); ABG Oxygen Saturation 99 % (90-100); ABG PCO2 32.1 mmhg (35.0-45.0); ABG PO2 334.3 mmhg (80-100); ABG TCO2 11.4 mmhg (23-27)
[2019-02-03 13:26] LABS: Allen's Test UA; Oxygen 100% %
[2019-02-03 13:28] LABS: ABG PH 7.13 mmol/L (7.35-7.45)
[2019-02-03 14:34] LABS: Albumin Level 1.7 gm/dL (3.4-5.0); Albumin/Globulin Ratio 0.9 (1.1-1.8); Anion Gap 23.9 mEq/L (5-15); Bilirubin,Total 0.6 mg/dL (0.2-1.0); Total Protein,Serum 3.7 gm/dL (6.4-8.2)
--- NOTE | 2019-02-03 14:36 | Progress Note ---
Internal Medicine - PN: Subj *Date: 02/03/19 *Time: 14:33 Interval history: A rapid response red was called on the patient when she became nonresponsive. During evaluation patient was found to be hypoglycemic which was corrected with an amp of D50. Blood sugar went from 50 up to greater than 400. ABG revealed a metabolic acidosis. BMP from this morning had revealed increasing creatinine. Patient's urine output has been poor. Initially patient was nonresponsive although was able to protect her airway. As rapid response team proceeded patient's hypotension corrected with IV fluids and Levophed. As her blood pressure and blood sugar improved patient became more awake. Once patient was stabilized she was transferred to stepdown unit. Exam Vital signs and Labs for Last 24 Hours: Temp Pulse Resp BP Pulse Ox 97.5 F L 100 H 22 99/76 L 96 02/03/19 11:54 02/03/19 12:00 02/03/19 11:54 02/03/19 11:54 02/03/19 11:54 Laboratory Results - last 24 hr 02/02/19 18:53: WBC 10.4, RBC 4.03 L, Hgb 12.8, Hct 41.1, MCV 102.2 H, MCH 31.8 H, MCHC 31.1 L, RDW 15.8, Plt Count 178, MPV 8.3, Neut % (Auto) 79.4, Lymph % (Auto) 14.9, [place] % (Auto) 3.5, Eos % (Auto) 1.3, Baso % (Auto) 0.9, Neut # (Auto) 8.2 H, Lymph # (Auto) 1.6, [place] # (Auto) 0.4, Eos # (Auto) 0.1, Baso # (Auto) 0.1 02/02/19 18:53: Sodium 140, Potassium 4.3, Chloride 104, Carbon Dioxide 26, Anion Gap 14.3, BUN 16, Creatinine 0.52 L, Estimated Creat Clear 26, Estimated GFR 114, Est GFR ( Amer) 138, Glucose 108 H, Calcium 8.1 L, Total Bilirubin 0.5, AST 47 H, ALT 23, Alkaline Phosphatase 134 H, Total Creatine Kinase 289 H, Troponin I < 0.02, Total Protein 6.3 L, Albumin 2.9 L, Globulin 3.4 H, Albumin/Globulin Ratio 0.9 L 02/02/19 19:53: Urine Color Yellow, Urine Appearance Clear, Urine pH 7.0, Ur Specific [place] 1.020, Urine Protein Negative, Urine Glucose (UA) Negative, Urine Ketones Negative, Urine Blood 2+, Urine Nitrate Negative, Urine Bilirubin Negative, Urine Urobilinogen 0.2, Ur Leukocyte Esterase 1+ A, Urine RBC Occasional, Urine WBC 3-5, Urine Bacteria 3+ 02/03/19 02:30: Troponin I 0.03 02/03/19 06:50: Troponin I 0.03 02/03/19 06:50: WBC 18.3 H D, RBC 3.80 L, Hgb 12.0 L, Hct 39.0, MCV 102.7 H, MCH 31.5 H, MCHC 30.7 L, RDW 15.9, Plt Count 157, MPV 9.1, Neut % (Auto) 89.2 H, Lymph % (Auto) 6.5 L, [place] % (Auto) 3.6, Eos % (Auto) 0.1, Baso % (Auto) 0.5, Neut # (Auto) 16.3 H, Lymph # (Auto) 1.2, [place] # (Auto) 0.7, Eos # (Auto) 0.0, Baso # (Auto) 0.1, Total Counted 100, Neutrophils % (Manual) 88 H, Band Neutrophils % 3.0, Lymphocytes % (Manual) 5 L, Monocytes % (Manual) 4, Platelet Estimate Normal, Macrocytosis 1+ 02/03/19 06:50: PT 10.8, INR 1.04 02/03/19 06:50: Sodium 141, Potassium 5.0, Chloride 106, Carbon Dioxide 19 L D, Anion Gap 21.0 H, BUN 31 H D, Creatinine 1.33 H D, Estimated Creat Clear 21, Estimated GFR 39 L, Est GFR ( Amer) 47 L D, Glucose 100, Calcium 8.2 L, Magnesium 2.1 02/03/19 13:15: Specimen Source Femoral, O2 % 100%, ABG pH 7.13 L*, ABG pCO2 32.1 L, ABG pO2 334.3 H, ABG HCO3 10.4 L, ABG Total CO2 11.4 L, ABG O2 Saturation 99, ABG Base Excess -18.8 L, Michael Test Ua I & O for Last 24 hours: Intake & Output 02/01/19 02/02/19 02/03/19 02/04/19 11:59 11:59 11:59 11:59 Intake Total 471 / 471 Output Total 200 / 200 Balance 271 / 271 Weight 81 lb 6.985 oz Microbiology Reports for the Last 24 Hours: Microbiology 02/02/19 19:53 Urine,Catheterized Urine Culture - Preliminary Gram Negative Rods Narrative: Patient initially would make attempts to respond to questions but vocalization just came out as grunts or moans. As her blood pressure improved she was able to answer yes/no questions and was even asking for family members. Color was pale and [place] although his blood pressure improved patient's color returned to normal. She was tachycardic. Lungs remain clear. Patient was moving all extremities including the left leg which has the fractured hip. Assessment and Plan (1) Acute renal failure Current visit: Yes Status: Acute Category: Medical Code(s): N17.9 - Acute kidney failure, unspecified (2) Hip fracture, intertrochanteric Current visit: Yes Status: Acute Qualifiers: Encounter type: initial encounter Fracture type: closed Fracture alignment: displaced Laterality: left Qualified Code(s): S72.142A - Displaced intertrochanteric fracture of left femur, initial encounter for closed fracture Category: Medical Code(s): S72.143A - Displaced intertrochanteric fracture of unspecified femur, initial encounter for closed fracture (3) Left ventricular systolic dysfunction, chronic Current visit: Yes Status: Acute Category: Medical Code(s): I51.9 - Heart disease, unspecified (4) LBBB (left bundle branch block) Current visit: Yes Status: Acute Category: Medical Code(s): I44.7 - Left bundle-branch block, unspecified (5) CAD (coronary artery disease) Current visit: No Status: Acute Category: Medical Code(s): I25.10 - Atherosclerotic heart disease of [place] coronary artery without angina pectoris (6) Metabolic acidosis Current visit: Yes Status: Acute Category: Medical Code(s): E87.2 - Acidosis - Assessment and plan all Dx Assessment and Plan for all problems:: 1. Patient has been started on IV fluids of normal saline with 1 amp of bicarbonate at 75 mL's per hour with use of Levophed to maintain a map of 60 or greater and systolic blood pressure greater than 100. Patient received 2 fluid boluses during the rapid response resuscitation of 1000 mL's each. The second bolus contained 2 A of sodium bicarbonate. CBC and BMP from the rapid response are still pending and BMP will be repeated late this evening to assess renal function. 2. Discussion was had with the patient's family regarding her prognosis and the patient's wishes. The family tells me that the patient has some form of advanced directive at home and they will try to find that. In short the advance directive indicates "she does not want to be hooked up to machines". 3. Surgery to repair her left hip fracture has been postponed
[2019-02-03 14:53] LABS: Basophils # 0.2 K/mm3 (0-0.2); Basophils % 0.9 % (0.1-2.0); Eosinophils # 0.1 K/mm3 (0.0-0.4); Eosinophils % 0.3 % (0.1-12.0); Hematocrit 31.3 % (37.0-47.0); Lymphocytes # 1.4 K/mm3 (0.7-4.5); Lymphocytes % 7.6 % (10-50); Mean Corpuscular HGB Conc 28.7 g/dL (31.8-35.4); Mean Platelet Volume 9.2 fl (7.4-10.4); Monocytes # 0.5 K/mm3 (0.1-1.0); Monocytes % 2.8 % (1.7-9.3); Neutrophils # 15.9 K/mm3 (1.8-7.8); Neutrophils % 88.3 % (37.0-80.0); Red Blood Count 2.88 M/mm3 (4.20-5.40); Red Cell Distribution Width 16.1 % (11.5-17.5)
[2019-02-03 15:16] LABS: Platelet Count 147 K/mm3 (142-424)
[2019-02-03 15:24] LABS: Calcium 7.1 mg/dL (8.5-10.1)
--- NOTE | 2019-02-03 15:58 | Procedure Note ---
[facility] Procedure Note Procedure Note:: Indications: Need for central venous access 78-year-old female discharged from [facility] yesterday after 2- day hospital stay for chest pain with left heart catheterization revealing right coronary disease, mildly elevated left ventricular end-diastolic pressure, nonischemic cardiomyopathy with ejection fraction of 25%. Patient was at home and tell me she tripped over some objects that were stacked in her home landing on her left hip and arm. This resulted in a left hip fracture. Patient was transported to the ER where left hip fracture was diagnosed and she has been admitted for repair. As the patient was being prepared for surgery she had clinical deterioration rapidly requiring transfer to stepdown unit and placement on vasopressors. Surgery was consulted for placement of central venous catheter. Procedure performed: Placement of 7.5 Citizen [place] triple-lumen catheter and left subclavian vein Procedure description: Consent was obtained from the patient's family. She was positioned in Trendelenburg position. Left neck and chest were prepped and draped in the standard surgical fashion. Local anesthetic was infiltrated inferior to the left clavicle. With a couple of passes of the needle the left subclavian vein was cannulated and there was good return of venous blood flow. Guidewire was inserted. Small incision was made at the skin. Subcutaneous tissues were dilated. 7.5 [place] triple-lumen catheter was inserted over the guidewire using Seldinger technique. It was secured to the skin at approximately the 15 cm benedict. All ports aspirated and flushed without difficulty. Dressing was applied. Post procedure chest x-ray revealed, preliminarily, good placement with no evidence of any pneumothorax.
--- NOTE | 2019-02-03 17:59 | Progress Note ---
Acute Rapid Response Note - Subjective Date Responded: 02/03/19 Provider Note: I This MD was called to the floor secondary to decreased responsiveness, low blood pressure, metabolic acidosis following hip fracture - Objective Findings: Vital Signs - Last 4 Hours Temperature 97.5 F L 02/03/19 11:54 Temperature Source Axillary 02/03/19 11:54 Pulse Rate 110 H 02/03/19 16:00 Respiratory Rate 22 02/03/19 11:54 Blood Pressure 99/76 L 02/03/19 11:54 Blood Pressure Mean 83 02/03/19 11:54 Blood Pressure Source Manual Cuff/Auscultation 02/03/19 08:00 Blood Pressure Position Supine 02/03/19 08:00 02 Sat by Pulse Oximetry 96 02/03/19 11:54 Oxygen Delivery Method 02/03/19 15:51 Oxygen Flow Rate (LPM) 2 02/03/19 11:30 Lab Results for Past 12 Hours 02/03/19 14:40: WBC 18.0 H, RBC 2.88 L, Hgb 9.0 L D, Hct 31.3 L, MCV 109.0 H, MCH 31.3 H, MCHC 28.7 L, RDW 16.1, Plt Count 147, MPV 9.2, Neut % (Auto) 88.3 H, Lymph % (Auto) 7.6 L, [place] % (Auto) 2.8, Eos % (Auto) 0.3, Baso % (Auto) 0.9, Neut # (Auto) 15.9 H, Lymph # (Auto) 1.4, [place] # (Auto) 0.5, Eos # (Auto) 0.1, Baso # (Auto) 0.2 02/03/19 13:45: Sodium 146 H, Potassium 5.9 H, Chloride 112 H, Carbon Dioxide 16 L, Anion Gap 23.9 H, BUN 38 H, Creatinine 1.90 H D, Estimated Creat Clear 14, Estimated GFR 26 L, Est GFR ( Amer) 31 L D, Glucose 218 H D, Calcium 7.1 L D, Total Bilirubin 0.6, AST 348 H* D, ALT 230 H D, Alkaline Phosphatase 92, Troponin I 0.10 H, Total Protein 3.7 L D, Albumin 1.7 L D, Globulin 2.0, Albumin/Globulin Ratio 0.9 L 02/03/19 13:15: Specimen Source Femoral, O2 % 100%, ABG pH 7.13 L*, ABG pCO2 32.1 L, ABG pO2 334.3 H, ABG HCO3 10.4 L, ABG Total CO2 11.4 L, ABG O2 Saturation 99, ABG Base Excess -18.8 L, Michael Test Ua 02/03/19 06:50: Sodium 141, Potassium 5.0, Chloride 106, Carbon Dioxide 19 L D, Anion Gap 21.0 H, BUN 31 H D, Creatinine 1.33 H D, Estimated Creat Clear 21, Estimated GFR 39 L, Est GFR ( Amer) 47 L D, Glucose 100, Calcium 8.2 L, Magnesium 2.1 02/03/19 06:50: PT 10.8, INR 1.04 02/03/19 06:50: WBC 18.3 H D, RBC 3.80 L, Hgb 12.0 L, Hct 39.0, MCV 102.7 H, MCH 31.5 H, MCHC 30.7 L, RDW 15.9, Plt Count 157, MPV 9.1, Neut % (Auto) 89.2 H, Lymph % (Auto) 6.5 L, [place] % (Auto) 3.6, Eos % (Auto) 0.1, Baso % (Auto) 0.5, Neut # (Auto) 16.3 H, Lymph # (Auto) 1.2, [place] # (Auto) 0.7, Eos # (Auto) 0.0, Baso # (Auto) 0.1, Total Counted 100, Neutrophils % (Manual) 88 H, Band Neutrophils % 3.0, Lymphocytes % (Manual) 5 L, Monocytes % (Manual) 4, Platelet Estimate Normal, Macrocytosis 1+ 02/03/19 06:50: Troponin I 0.03 02/02/19 19:53: Urine Color Yellow, Urine Appearance Clear, Urine pH 7.0, Ur Spe cific [place] 1.020, Urine Protein Negative, Urine Glucose (UA) Negative, Urine Ketones Negative, Urine Blood 2+, Urine Nitrate Negative, Urine Bilirubin Negative, Urine Urobilinogen 0.2, Ur Leukocyte Esterase 1+ A, Urine RBC Occasional, Urine WBC 3-5, Urine Bacteria 3+ My Orders Category Date Time Status Complete Blood Count Auto Diff Stat Lab 02/03/19 14:40 Completed Comprehensive Metabolic Panel Stat Lab 02/03/19 13:45 Completed Troponin I Stat Lab 02/03/19 13:45 Completed acidotic, hypoventilating, decreased level of consciousness, poor urinary output. Rapid Response Exam very thin cachectic female with obvious broken left hip, malnutrition seems poor, overall health very poor.. In light of her injuries, her prognosis seemed poor. Fluid boluses were given, patient was bagged for a short period, levophed started for pressure control. Blood was obtained, no evidence of anemia. - General General appearance: lethargic, obtunded - Head Head exam: atraumatic - Eye Eye exam: Present: normal appearance, PERRL, EOMI - ENT ENT exam: Present: normal exam, normal oropharynx, mucous membranes moist, TM's normal bilaterally, normal external ear exam - Neck Neck exam: Present: normal inspection, full ROM, trachea midline - Chest Chest inspection: Present: symmetric chest wall rise - Respiratory Respiratory exam: Present: normal lung sounds bilaterally, other (poor effort) - Cardiovascular Cardiovascular exam: Present: regular rate, normal rhythm - Abdominal Exam Abdominal exam: Present: soft. Absent: distention, tenderness, guarding, rebound - Extremities Exam Extremities exam: Present: other (obvious left hip fracture). Absent: normal inspection, full ROM - Back Exam Back exam: Present: normal inspection. Absent: tenderness - Neurological Exam Neurological exam: Absent: alert, oriented X3, CN II-XII intact, motor sensory deficit, reflexes normal - Psychiatric Psychiatric exam: Absent: normal affect - Skin Skin exam: Present: warm, dry, intact, other (pale)
--- NOTE | 2019-02-04 07:22 | Death Note ---
Discharge Sum: Prov - Provider Primary care physician: Manuel Abdul MD Visit Care Team Role Provider Type Stanley Fletcher MD Other Providers Staff Physician Familia Henning MD Other Providers Staff Physician Moshe Miner MD Emergency Provider Staff Physician Manuel Abdul MD Attending Provider Staff Physician Primary Care Provider Manuel De Luna MD Admit Provider Staff Physician Admitting clinician: Manuel Abdul Attending physician on admission: Manuel Abdul Consults: 02/03/19 07:32 Consult to Cardiology [CONS] Routine Consulting Provider: Stanley Fletcher Reason For Consult: Pre-op assessment 02/03/19 08:00 On-Call Ortho Consult [Consult to On-Call Orthopedic Surgeon] [CONS] Routine Comment: Consult on-call surgeon?: Yes Reason For Consult: hip fx 02/03/19 14:20 Consult to General Surgery [CONS] Routine Consulting Provider: Familia Henning Reason For Consult: Central line as patient has poor IV access Pronouncing clinician: Moshe Arguello Discharge Sum: Summary - Date and Time Date of admission: 02/02/19 23:12 - Additional Data Attending physician: Manuel Abdul MD
--- NOTE | 2019-02-04 07:28 | Discharge Summary ---
General - General Admission date:: 02/02/19 Discharge date: 02/03/19 HPI HPI: 78-year-old female discharged from [facility] yesterday after 2- day hospital stay for chest pain with left heart catheterization revealing right coronary disease, mildly elevated left ventricular end-diastolic pressure, nonischemic cardiomyopathy with ejection fraction of 25%. Patient was at home and tell me she tripped over some objects that were stacked in her home landing on her left hip and arm. This resulted in a left hip fracture. Patient was transported to the ER where left hip fracture was diagnosed and she has been admitted for repair. Hospital Course Hospital Course: Patient was admitted for anticipated repair of left hip fracture. On the morning of the third patient did complain of pain from the left hip and that was medicated with morphine. Blood pressures remained low. Because of patient's recent hospitalization for chest pain with [facility] cardiology was consulted. Plan initially was for surgery on the afternoon of February 03. Labs on the morning of February 03 indicated likely acute kidney injury due to increase in creatinine. On the afternoon of February 03 patient became unresponsive. Nursing staff reported that patient's eyes were open but she would not respond to any verbal commands or tactile stimulus. A rapid response red was called. Patient was found to be hypoglycemic and hypotensive. Hypoglycemia was corrected with D50 and hypotension was corrected with fluid boluses and administration of Levophed. Patient gradually became more awake and alert. She was transferred to the stepdown unit for closer monitoring. Due to patient's LV dysfunction fluids were continued to be administered at a low rate along with Levophed to maintain her blood pressure. Patient was able to maintain oxygen saturations throughout via nasal cannula. Repeat labs performed during the rapid response showed continued decline in renal function and a blood gas revealed metabolic acidosis. Patient had sodium bicarbonate, 1 AM, added to her IV fluids of normal saline. Troponin performed during rapid response was negative. Discussion was had with the family about the patient's health status. Family recalled that patient did have an advanced directive that wish for the patient to be a DO NOT RESUSCITATE and the family completed the appropriate form here in the hospital. Patient was continued on fluids and Levophed. Dr. Henning was consulted for central line to be placed which was placed successfully on the afternoon of February 03. Patient's condition worsened and she ultimately on the afternoon of February 03. Initial cause of was felt to be her renal failure. However the routine urinalysis performed on admission once the patient's catheter was inserted did grow a gram-negative trever which after the patient's his shown to be Enterobacter. Patient was given IV Rocephin on the afternoon of February 03. With that information it is likely that sepsis is the cause of the patient's Objective Vital signs: Temp Pulse Resp BP Pulse Ox 97.5 F L 0 L 0 L 0/0 L 96 02/03/19 11:54 02/03/19 16:45 02/03/19 16:45 02/03/19 16:45 02/03/19 11:54 Results Labs on day of discharge: Labs from last 24 hours 02/03/19 02/03/19 02/03/19 16:28 14:40 13:45 WBC 18.0 H RBC 2.88 L Hgb 9.0 L D Hct 31.3 L MCV 109.0 H MCH 31.3 H MCHC 28.7 L RDW 16.1 Plt Count 147 MPV 9.2 Neut % (Auto) 88.3 H Lymph % (Auto) 7.6 L [place] % (Auto) 2.8 Eos % (Auto) 0.3 Baso % (Auto) 0.9 Neut # (Auto) 15.9 H Lymph # (Auto) 1.4 [place] # (Auto) 0.5 Eos # (Auto) 0.1 Baso # (Auto) 0.2 Total Counted Neutrophils % (Manual) Band Neutrophils % Lymphocytes % (Manual) Monocytes % (Manual) Platelet Estimate Macrocytosis PT INR Specimen Source O2 % ABG pH ABG pCO2 ABG pO2 ABG HCO3 ABG Total CO2 ABG O2 Saturation ABG Base Excess Michael Test Sodium 146 H Potassium 5.9 H Chloride 112 H Carbon Dioxide 16 L Anion Gap 23.9 H BUN 38 H Creatinine 1.90 H D Estimated Creat Clear 14 Estimated GFR 26 L Est GFR ( Amer) 31 L D Glucose 218 H D POC Glucose 86 Calcium 7.1 L D Magnesium Total Bilirubin 0.6 AST 348 H* D ALT 230 H D Alkaline Phosphatase 92 Troponin I 0.10 H Total Protein 3.7 L D Albumin 1.7 L D Globulin 2.0 Albumin/Globulin Ratio 0.9 L Urine Color Urine Appearance Urine pH Ur Specific [place] Urine Protein Urine Glucose (UA) Urine Ketones Urine Blood Urine Nitrate Urine Bilirubin Urine Urobilinogen Ur Leukocyte Esterase Urine RBC Urine WBC Urine Bacteria 02/03/19 02/03/19 02/03/19 13:15 06:50 06:50 WBC RBC Hgb Hct MCV MCH MCHC RDW Plt Count MPV Neut % (Auto) Lymph % (Auto) [place] % (Auto) Eos % (Auto) Baso % (Auto) Neut # (Auto) Lymph # (Auto) [place] # (Auto) Eos # (Auto) Baso # (Auto) Total Counted Neutrophils % (Manual) Band Neutrophils % Lymphocytes % (Manual) Monocytes % (Manual) Platelet Estimate Macrocytosis PT 10.8 INR 1.04 Specimen Source Femoral O2 % 100% ABG pH 7.13 L* ABG pCO2 32.1 L ABG pO2 334.3 H ABG HCO3 10.4 L ABG Total CO2 11.4 L ABG O2 Saturation 99 ABG Base Excess -18.8 L Michael Test Ua Sodium 141 Potassium 5.0 Chloride 106 Carbon Dioxide 19 L D Anion Gap 21.0 H BUN 31 H D Creatinine 1.33 H D Estimated Creat Clear 21 Estimated GFR 39 L Est GFR ( Amer) 47 L D Glucose 100 POC Glucose Calcium 8.2 L Magnesium 2.1 Total Bilirubin AST ALT Alkaline Phosphatase Troponin I Total Protein Albumin Globulin Albumin/Globulin Ratio Urine Color Urine Appearance Urine pH Ur Specific [place] Urine Protein Urine Glucose (UA) Urine Ketones Urine Blood Urine Nitrate Urine Bilirubin Urine Urobilinogen Ur Leukocyte Esterase Urine RBC Urine WBC Urine Bacteria 02/03/19 02/03/19 02/02/19 06:50 06:50 19:53 WBC 18.3 H D RBC 3.80 L Hgb 12.0 L Hct 39.0 MCV 102.7 H MCH 31.5 H MCHC 30.7 L RDW 15.9 Plt Count 157 MPV 9.1 Neut % (Auto) 89.2 H Lymph % (Auto) 6.5 L [place] % (Auto) 3.6 Eos % (Auto) 0.1 Baso % (Auto) 0.5 Neut # (Auto) 16.3 H Lymph # (Auto) 1.2 [place] # (Auto) 0.7 Eos # (Auto) 0.0 Baso # (Auto) 0.1 Total Counted 100 Neutrophils % (Manual) 88 H Band Neutrophils % 3.0 Lymphocytes % (Manual) 5 L Monocytes % (Manual) 4 Platelet Estimate Normal Macrocytosis 1+ PT INR Specimen Source O2 % ABG pH ABG pCO2 ABG pO2 ABG HCO3 ABG Total CO2 ABG O2 Saturation ABG Base Excess Michael Test Sodium Potassium Chloride Carbon Dioxide Anion Gap BUN Creatinine Estimated Creat Clear Estimated GFR Est GFR ( Amer) Glucose POC Glucose Calcium Magnesium Total Bilirubin AST ALT Alkaline Phosphatase Troponin I 0.03 Total Protein Albumin Globulin Albumin/Globulin Ratio Urine Color Yellow Urine Appearance Clear Urine pH 7.0 Ur Specific [place] 1.020 Urine Protein Negative Urine Glucose (UA) Negative Urine Ketones Negative Urine Blood 2+ Urine Nitrate Negative Urine Bilirubin Negative Urine Urobilinogen 0.2 Ur Leukocyte Esterase 1+ A Urine RBC Occasional Urine WBC 3-5 Urine Bacteria 3+ Preliminary micro results at discharge 02/02/19 19:53 Urine Culture - Preliminary Urine,Catheterized Enterobacter aerogenes DS: Diagnosis - Discharge Diagnosis (1) Sepsis Status: Acute (2) Acute renal failure Status: Acute (3) Hip fracture, intertrochanteric Status: Acute (4) Left ventricular systolic dysfunction, chronic Status: Acute (5) LBBB (left bundle branch block) Status: Acute (6) CAD (coronary artery disease) Status: Acute (7) Metabolic acidosis Status: Acute (8) UTI (urinary tract infection) Status: Acute Discharge Plan - Patient Discharge Instructions ACTIVITY: Continue current activity DIET: continue same diet Patient Instructions: DI for Hip Fracture, Central Line-Associated Bloodstream Infections, DI for Central Line Catheter - Follow up Plan Disposition: Home Medications: Home Medications Medication Instructions Recorded Confirmed Type aspirin 81 mg tablet,delayed 81 mg PO DAILY tab 12/24/17 02/03/19 History release budesonide-formoterol HFA 160 2 puff INHALATION BID 12/24/17 02/03/19 History mcg-4.5 mcg/actuation aerosol inhaler cholecalciferol (vitamin D3) 5,000 2,000 unit PO DIRECTED cap 12/24/17 02/03/19 History unit capsule clopidogrel 75 mg tablet 75 mg PO DAILY tab 12/24/17 02/03/19 History levothyroxine 75 mcg tablet 75 mcg PO DAILY tab 12/24/17 02/03/19 History simvastatin 40 mg tablet 40 mg PO HS 12/24/17 02/03/19 History Escitalopram Oxalate [Lexapro] 10 mg PO HS 01/04/18 02/03/19 History Albuterol Sulfate [Albuterol 2.5 mg IH Q4HP PRN #60 neb 01/05/18 02/03/19 Rx Sulfate 2.5mg/0.5ml Neb] Sacubitril/Valsartan [Entresto 49 1 tab PO BID 03/30/18 02/03/19 History mg-51 mg Tablet] Omeprazole 20 mg PO DAILY 01/22/19 02/03/19 History Umeclidinium [place] [Incruse 1 puff INHALATION DAILY 01/22/19 02/03/19 History Ellipta] Albuterol Sulfate [Albuterol HFA 1 - 2 puffs IH Q4-6H PRN 02/01/19 02/03/19 History Inhaler] Carvedilol [Coreg 3.125mg Tablet] 3.125 mg PO BID 02/02/19 02/03/19 History Isosorbide Mononitrate [Imdur 30mg 30 mg PO DAILY 02/02/19 02/03/19 History ER tablet] Prescriptions/Medication Reconciliation: No Action aspirin 81 mg tablet,delayed release 81 mg PO DAILY tab clopidogrel 75 mg tablet 75 mg PO DAILY tab levothyroxine 75 mcg tablet 75 mcg PO DAILY tab simvastatin 40 mg tablet 40 mg PO HS budesonide-formoterol HFA 160 mcg-4.5 mcg/actuation aerosol inhaler 2 puff INHALATION BID cholecalciferol (vitamin D3) 5,000 unit capsule 2,000 unit PO DIRECTED cap Escitalopram Oxalate [Lexapro] 10 mg PO HS Albuterol Sulfate [Albuterol Sulfate 2.5mg/0.5ml Neb] 2.5 mg IH Q4HP PRN #60 neb PRN Reason: Shortness Of Breath Umeclidinium [place] [Incruse Ellipta] 1 puff INHALATION DAILY Albuterol Sulfate [Albuterol HFA Inhaler] 1 - 2 puffs IH Q4-6H PRN PRN Reason: SHORTNESS OF AIR/WHEEZING Isosorbide Mononitrate [Imdur 30mg ER tablet] 30 mg PO DAILY Sacubitril/Valsartan [Entresto 49 mg-51 mg Tablet] 1 tab PO BID Omeprazole 20 mg PO DAILY Carvedilol [Coreg 3.125mg Tablet] 3.125 mg PO BID
== END 2019-02-03 20:08 | disposition expired | DRG 535 ==
LOC: ER 19:36 → 2ND 22:42
PROVIDERS: ADMIT Internal Medicine Adolescent Medicine; ATTEND Family Medicine
CPT/HCPCS: 36415; 70450; 71010; 71020; 71045; 71046; 72125; 73080; 73502; 73552; 73562; 73590; 80048; 80053; 80061; 81001; 82550; 82803; 82962; 83735; 83880; 84484; 85007; 85025; 85610; 87086; 87088; 87186; 93005; 93306; 94640; 94760; 94761; 96365; 96374; 96375; 99152; 99284; 99285; C1725; C1751; C1769; G0378; J1644; J2405; Q9967